=== PATIENT | female | born 1990 | race Asian ===

== ENCOUNTER 2020-02-28 07:00 | Outpatient (REF) | payer OTHER, SELFPAY ==
[2020-02-28 11:24] LABS: MANUAL DIFF FLAG NO
[2020-02-28 11:32] LABS: Eosinophils Percent Auto 0.5 % (0-4); Hematocrit 36.2 % (37-47); Hemoglobin 11.3 g/dl (12.0-16.0); Lymphocytes Absolute Auto 1.7 X10*3/uL (1.2-4.9); Lymphocytes Percent Auto 38.8 % (20-40); Mean Corpuscular HGB Conc 31.2 g/dl (31.0-35.0); Mean Corpuscular Hemoglobin 25.1 pg (27.0-33.0); Mean Corpuscular Volume 80.3 fL (80-98); Mean Platelet Volume 11.2 fL (9.4-12.3); Monocytes Absolute Auto 0.4 X10*3/uL (0.1-1.2); Monocytes Percent Auto 8.7 % (2-11); Neutrophils Absolute Auto 2.3 X10*3/uL (2.0-8.3); Platelet Count 297 X10*3/uL (160-400); Red Blood Count 4.51 X10*6/uL (4.20-5.50); Red Cell Distribution Width 13.2 % (11.0-16.0); White Blood Count 4.4 X10*3/uL (4.8-10.8)
[2020-02-28 12:13] LABS: Vitamin B12 586 pg/mL (200-900)
[2020-02-28 12:42] LABS: Ferritin 29 ng/mL (10-122)
[2020-03-03 14:21] LABS: Vitamin D 25-OH, D2 39 ng/mL; Vitamin D 25-OH, D3 <4 ng/mL; Vitamin D 25-OH, Total 39 ng/mL (30-100)
== END 2020-02-28 07:01 | disposition home or self-care (01) ==
LOC: HO.HMGCLDS 07:00
PROVIDERS: PCP Internal Medicine; Visit Provider Internal Medicine
DX: D64.9 Anemia, unspecified (principal); E53.8 Deficiency of other specified B group vitamins; E55.9 Vitamin D deficiency, unspecified
CPT/HCPCS: 36415; 82306; 82607; 82728; 85025

== ENCOUNTER 2020-12-21 11:43 | Outpatient (REF) | payer OTHER, SELFPAY ==
[2020-12-21 14:08] LABS: MANUAL DIFF FLAG NO
[2020-12-21 14:24] LABS: Basophils Percent Auto 0.2 % (0-2); Eosinophils Percent Auto 0.2 % (0-4); Hematocrit 34.6 % (37-47); Hemoglobin 10.9 g/dl (12.0-16.0); Imm Gran Abs Auto 0.01 X10*3/uL (0.00-0.03); Imm Gran Pct Auto 0.2 % (0.0-0.4); Lymphocytes Absolute Auto 2.5 X10*3/uL (1.2-4.9); Lymphocytes Percent Auto 39.5 % (20-40); Mean Corpuscular HGB Conc 31.5 g/dl (31.0-35.0); Mean Corpuscular Hemoglobin 24.6 pg (27.0-33.0); Mean Corpuscular Volume 78.1 fL (80-98); Mean Platelet Volume 11.4 fL (9.4-12.3); Monocytes Absolute Auto 0.4 X10*3/uL (0.1-1.2); Monocytes Percent Auto 6.4 % (2-11); Neutrophils Absolute Auto 3.4 X10*3/uL (2.0-8.3); Neutrophils Percent Auto 53.5 % (45-73); Platelet Count 315 X10*3/uL (160-400); Red Blood Count 4.43 X10*6/uL (4.20-5.50); Red Cell Distribution Width 13.1 % (11.0-16.0); White Blood Count 6.4 X10*3/uL (4.8-10.8)
[2020-12-21 14:35] LABS: Alanine Aminotransferase 11 U/L (0-31); Albumin Level 4.3 g/dL (3.5-5.0); Alkaline Phosphatase 86 U/L (39-117); Anion Gap 11 (12-20); Aspartate Amino Transferase 15 U/L (5-31); Bilirubin Total 0.3 mg/dL (0.0-1.0); Blood Urea Nitrogen 6 mg/dL (9-16); Calcium 9.8 mg/dL (8.4-10.2); Carbon Dioxide 25 mmol/L (22-29); Chloride 106 mmol/L (96-108); Estimated Glomerular Filt Rate > 60; Glucose Random 78 mg/dL (60-115); Potassium 4.4 mmol/L (3.3-5.1); Sodium 138 mmol/L (135-145); Total Protein 7.4 g/dL (6.5-8.0)
[2020-12-21 14:56] LABS: Ferritin 35 ng/mL (10-122)
[2020-12-21 15:42] LABS: Vitamin B12 184 pg/mL (200-900)
[2020-12-27 14:01] LABS: Vitamin D 25-OH, D2 7 ng/mL; Vitamin D 25-OH, D3 15 ng/mL; Vitamin D 25-OH, Total 22 ng/mL (30-100)
== END 2020-12-21 11:44 | disposition home or self-care (01) ==
LOC: HO.HMGCLDS 11:43
PROVIDERS: PCP Internal Medicine; Visit Provider Internal Medicine
DX: D64.9 Anemia, unspecified (principal); E53.8 Deficiency of other specified B group vitamins; E55.9 Vitamin D deficiency, unspecified
CPT/HCPCS: 36415; 80053; 82306; 82607; 82728; 85025

== ENCOUNTER → 2021-03-22 14:53 | Outpatient (BNV) | payer OTHER, SELFPAY | PROVIDERS: PCP Internal Medicine; Referring Provider Internal Medicine; Visit Provider Internal Medicine Medical Oncology | DX: D64.9 Anemia, unspecified (principal) | CPT/HCPCS: 99203; 99213; 99215 ==

== ENCOUNTER 2021-05-03 09:34 | Outpatient (REF) | payer OTHER, SELFPAY ==
[2021-05-04 13:01] LABS: CT PCR NOT DETECTED (Not Detect.); NG PCR NOT DETECTED (Not Detect.)
== END 2021-05-03 09:35 | disposition home or self-care (01) ==
LOC: HO.LAB 09:34
PROVIDERS: PCP Internal Medicine; Visit Provider Advanced Practice Midwife
DX: Z01.419 Encounter for gynecological examination (general) (routine) without abnormal findings (principal); D64.9 Anemia, unspecified; E53.8 Deficiency of other specified B group vitamins; E55.9 Vitamin D deficiency, unspecified; Z11.3 Encounter for screening for infections with a predominantly sexual mode of transmission; Z11.8 Encounter for screening for other infectious and parasitic diseases
CPT/HCPCS: 81025; 87491; 87591

== ENCOUNTER 2021-11-01 14:36 | Outpatient (REF) | payer OTHER, SELFPAY ==
[2021-11-01 15:26] LABS: HCG Quantitative 4003 mIU/mL
== END 2021-11-01 14:37 | disposition home or self-care (01) ==
LOC: HO.LAB 14:36
PROVIDERS: PCP Internal Medicine; Visit Provider Advanced Practice Midwife
DX: Z34.90 Encounter for supervision of normal pregnancy, unspecified, unspecified trimester (principal)
CPT/HCPCS: 36415; 84702; 99212

== ENCOUNTER 2021-11-22 10:22 | Outpatient (REF) | payer OTHER, SELFPAY ==
[2021-11-22 11:54] LABS: MANUAL DIFF FLAG NO
[2021-11-22 12:20] LABS: Alanine Aminotransferase 15 U/L (0-31); Albumin Level 4.5 g/dL (3.5-5.0); Alkaline Phosphatase 107 U/L (39-117); Anion Gap 13 (12-20); Aspartate Amino Transferase 17 U/L (5-31); Bilirubin Total 0.4 mg/dL (0.0-1.0); Blood Urea Nitrogen 8 mg/dL (9-16); Calcium 9.7 mg/dL (8.4-10.2); Carbon Dioxide 23 mmol/L (22-29); Chloride 107 mmol/L (96-108); Estimated Glomerular Filt Rate > 60; Glucose Random 89 mg/dL (60-115); Potassium 4.9 mmol/L (3.3-5.1); Sodium 138 mmol/L (135-145); Total Protein 7.9 g/dL (6.5-8.0)
[2021-11-22 12:21] LABS: Alanine Aminotransferase 15 U/L (0-31); Albumin Level 4.5 g/dL (3.5-5.0); Alkaline Phosphatase 103 U/L (39-117); Anion Gap 14 (12-20); Aspartate Amino Transferase 17 U/L (5-31); Bilirubin Total 0.4 mg/dL (0.0-1.0); Blood Urea Nitrogen 8 mg/dL (9-16); Calcium 9.9 mg/dL (8.4-10.2); Carbon Dioxide 24 mmol/L (22-29); Chloride 106 mmol/L (96-108); Estimated Glomerular Filt Rate > 60; Glucose Random 93 mg/dL (60-115); Lactate Dehydrogenase 189 U/L (122-220); Sodium 139 mmol/L (135-145); Total Protein 7.9 g/dL (6.5-8.0)
[2021-11-22 12:39] LABS: Erythrocyte Sedimentation Rate 22 MM/HR (0-20)
[2021-11-22 12:45] LABS: Ferritin 40 ng/mL (10-122)
[2021-11-22 12:48] LABS: Vitamin B12 276 pg/mL (200-900)
[2021-11-22 13:00] LABS: Basophils Percent Auto 0.2 % (0-2); Eosinophils Percent Auto 0.3 % (0-4); Hematocrit 34.8 % (37.0-47.0); Hemoglobin 10.9 g/dl (12.0-16.0); Imm Gran Abs Auto 0.03 X10*3/uL (0.00-0.03); Imm Gran Pct Auto 0.5 % (0.0-0.4); Lymphocytes Absolute Auto 1.8 X10*3/uL (1.2-4.9); Lymphocytes Percent Auto 27.8 % (20-40); Mean Corpuscular HGB Conc 31.3 g/dl (31.0-35.0); Mean Corpuscular Hemoglobin 24.3 pg (27.0-33.0); Mean Corpuscular Volume 77.7 fL (80.0-98.0); Mean Platelet Volume 9.5 fL (9.4-12.3); Monocytes Absolute Auto 0.5 X10*3/uL (0.1-1.2); Monocytes Percent Auto 7.6 % (2-11); Neutrophils Percent Auto 63.6 % (45-73); Red Blood Count 4.48 X10*6/uL (4.20-5.50); Red Cell Distribution Width 13.6 % (11.0-16.0); White Blood Count 6.3 X10*3/uL (4.8-10.8)
[2021-11-22 13:01] LABS: Platelet Count 1162 X10*3/uL (160-400)
[2021-11-26 23:21] LABS: TS Negative Control Passed; TS Panel A 4; TS Panel B 2; TS Positive Control Passed; TSpotTB Negative (Negative)
[2021-11-27 15:02] LABS: Vitamin D 25-OH, D2 <4 ng/mL; Vitamin D 25-OH, D3 22 ng/mL; Vitamin D 25-OH, Total 22 ng/mL (30-100)
== END 2021-11-22 10:23 | disposition home or self-care (01) ==
LOC: HO.HMGCLDS 10:22
PROVIDERS: Internal Medicine Medical Oncology; PCP Internal Medicine; Visit Provider Internal Medicine
DX: R20.2 Paresthesia of skin (principal); E53.8 Deficiency of other specified B group vitamins
CPT/HCPCS: 36415; 80053; 82306; 82550; 82607; 82728; 83615; 85025; 85652; 86481

== ENCOUNTER 2021-11-22 16:43 | Emergency (ER) | payer OTHER, SELFPAY ==
--- NOTE | ~2021-11-22 | US_ITS ---
EXAMINATION: US VENOUS ULTRASOUND WITH DOPPLER LOWER EXTREMITY, BILATERAL CLINICAL INFORMATION: Lower extremity discomfort, pain and swelling COMPARISON: None TECHNIQUE: Ultrasound of the deep veins is performed from the hip to the calf with compression sonography and color and pulse Doppler assessment. Spectral analysis with color-flow imaging is performed. FINDINGS: RIGHT: There is normal venous compression and respiratory variation and augmented flow. The visualized common femoral vein, superficial femoral vein, profunda femoral vein, popliteal vein, and the trifurcation region shows no evidence of deep venous thrombosis. There is no significant popliteal fossa cyst. LEFT: There is normal venous compression and respiratory variation and augmented flow. The visualized common femoral vein, superficial femoral vein, profunda femoral vein, popliteal vein, and the trifurcation region shows no evidence of deep venous thrombosis. There is no significant popliteal fossa cyst. If the patient's symptoms persist, followup ultrasound in 5 days 7 days might be of value to exclude proximal propagation from a non-visualized calf vein. US/US venous duplex LE BI IMPRESSION: No DVT demonstrated in the bilateral lower extremities.
--- NOTE | ~2021-11-22 | CT_ITS ---
EXAMINATION: CT ANGIOGRAM OF THE CHEST WITH AND WITHOUT CONTRAST (CT PULMONARY ANGIOGRAM FOR PE) CLINICAL INFORMATION: Reason for Exam elevated platelets, SOB COMPARISON: None TECHNIQUE: Prior to contrast administration, noncontrast localization images were obtained. Subsequently, multidetector volumetric imaging was performed from the thoracic inlet to below the diaphragms following the administration of 70 mL Omnipaque 350 intravenous contrast. No contrast reaction reported Sagittal, coronal, and MIP oblique sagittal reformatted images were obtained on the CT workstation, uploaded to PACS, and reviewed. This CT examination was performed using dose optimization techniques as appropriate, variously including the following: *Automated exposure control *Adjustment of mA and/or kV according to patient size (this includes techniques or standardized protocols for targeted exams where dose is matched to indication/reason for exam; i.e. extremities or head) *Use of iterative reconstruction technique Total exam dose-length product 215 mGy-cm FINDINGS: QUALITY OF STUDY/CONTRAST BOLUS: Satisfactory. PULMONARY ARTERIES: No central or segmental pulmonary emboli. THORACIC AORTA: No aneurysm or dissection. LUNG: No focal consolidation, nodules or masses. PLEURA: No pleural effusion or pneumothorax. MEDIASTINUM: Normal heart size. No pericardial effusion. No hilar or mediastinal lymphadenopathy. No evidence of septal bowing or right heart strain. CHEST WALL/AXILLA: No axillary or internal mammary lymphadenopathy. OSSEOUS STRUCTURES: No acute or suspicious osseous abnormality. UPPER ABDOMEN: Unremarkable. No reflux of contrast into the hepatic veins to suggest elevated right heart pressures. CT/CT angio chest PE protocol IMPRESSION: No pulmonary embolism. No aortic aneurysm or dissection. No acute pulmonary parenchymal abnormalities. VTE: negative
[2021-11-22 17:00] VITALS: BP 128/83; PULSE 81; RESP 18; TEMP 36.9; O2SAT 98; BMI 25.7
--- NOTE | 2021-11-22 18:59 | ED_ITS ---
HPI - Recheck/Abnormal Lab/Rx General Chief Complaint: Recheck/Abnormal Lab/Rx Stated Complaint: Abnormal labs Time Seen by Provider: 11/22/21 18:07 Source: patient Mode of arrival: ambulatory Limitations: other (vague historian ) History of Present Illness HPI narrative: 31 year old female history of trigeminal neuralgia, microcytic anemia, migrane, B12 deficiency presents to the ED today per PCP for abnormal platelet count. Patient reports tingling, burning, and itching to her feet bilaterally worsening over the last 3 days. She reports seeing her PCP for this earlier this week for labs. She received a phone call from her PCP today noting that she should come to the ED immediately for further work up. She was started on oral contraceptives on Thursday, following a miscarriage she had last week which requ [facility] she was previously on a BC patch. She denies fever, chest pain, shortness of breath, vaginal bleeding, weakness, leg swelling, nausea, vomiting or calf pain. Denies any recent travel or long car rides. No hx of PE or DVT Related Data Previous Rx's Medication Instructions Recorded ferrous sulfate 325 mg (65 mg 325 mg PO DAILY 90 days #90 tabs 08/03/20 iron) tablet cyanocobalamin (vitamin B-12) 1,000 mcg PO DAILY 90 days #90 tabs 03/20/21 1,000 mcg tablet folic acid 1 mg tablet 1 mg PO DAILY #90 tabs 03/22/21 carbamazepine 100 mg 100 mg PO DAILY 30 days #30 tabs 05/10/21 tablet,extended release,12 hr (Tegretol XR) cholecalciferol (vitamin D3) 25 25 mcg PO DAILY 90 days #90 tabs 09/10/21 mcg (1,000 unit) tablet cyanocobalamin (vitamin B-12) 1,000 mcg PO DAILY 30 days #30 tabs 11/22/21 1,000 mcg tablet prednisone 10 mg tablet 10 mg PO DAILY 3 days #3 tabs 11/22/21 Allergies Allergy/AdvReac Type Severity Reaction Status Date / Time No Known Allergies Allergy Verified 11/22/21 17:00 Review of Systems Review of Systems: Constitutional : No Weight loss, No Fever, No Chills, No Fatigue, No Malaise ENT/Mouth : No sore throat, No Rhinorrhea Eyes: No Eye Pain, No Swelling, No Redness Cardiovascular : No Chest Pain, No SOB, No Dyspnea on Exertion, No Orthopnea, No Edema, No Palpitations Respiratory : No Cough, No Sputum, No Wheezing Gastrointestinal : No Nausea, No Vomiting, No Diarrhea, No Constipation, No abdominal Pain, No Hematochezia, No Melena Genitourinary : No Dysuria, No Urinary Frequency, No Hematuria, Musculoskeletal : No joint pain, No Myalgias, No Joint Swelling Skin : No Skin Lesions, No rash Neuro : No Weakness, No Numbness, No Dizziness, No Headache All other systems reviewed and are negative Yes all other systems are reviewed and are negative [facility] Past Medical History Attestation statement: The following information was validated with the patient. Source: old records reviewed and nursing notes reviewed Medical History B12 deficiency Low hemoglobin Migraine without aura Unplanned , unknown if wanted Vitamin D deficiency Surgical History No pertinent past surgical history Family History Family History Father CVD (cardiovascular disease) Mother No problems noted. Maternal Grandfather Diabetes mellitus Maternal Grandmother Diabetes mellitus Paternal Grandfather Diabetes mellitus Paternal Grandmother Diabetes mellitus Social History Social History Household Members: Spouse and Children Housing: House Are you a primary personal caregiver to a significant other at home: No Do you presently have visiting nurse or other home services: No Alcohol intake: never Patient Tobacco Use Status: Never used Tobacco e-Cigarette/Vaping Use: Never Used Advance Directives: No Advance Directives Information Provided: No service: No Current occupational status: employed Cognitive needs: No Hearing needs: No Vision needs: No Physical Exam Vital Signs: Vital Signs: Last Vital Signs Temp 98.2 F 11/23/21 00:00 Pulse 65 11/23/21 00:00 Resp 20 11/22/21 20:54 BP 114/77 11/23/21 00:00 Pulse Ox 98 11/23/21 00:00 O2 Del Method 11/23/21 00:00 BMI result Body Mass Index 25.7 VSS Appearance: Alert.? Oriented X3.? No acute distress.? Head: Normocephalic, atraumatic, no step-offs or deformities Eyes: Pupils equal, round and reactive to light.? ENT: Pharynx normal.? Neck: Normal inspection.? Neck supple.? CVS: Normal heart rate and rhythm.? Pulses normal.? Respiratory: No respiratory distress.? Breath sounds normal.? Abdomen: Soft and nontender.? Skin: Skin warm and dry.? Normal skin color.? Normal skin turgor.? Extremities: No lower extremity edema.? No calf ttp. 5/5 strength to bilateral upper and lower extremities 2+ DP,AT,PT pulses equal and b/l. Neuro: Oriented X 3.? No motor deficit.? No sensory deficit. CN 2-12 intact Course Course Course Narrative: This case was discussed with who agrees with dx and tx plan. Reevaluation(s) Reevaluation #1: Spoke to Hem/Onc who agrees with my current workup and plan. She would also like LDH, vitamin B12, folate, ferritin, iron studies added to patient's workup. She recommends for patient to call their office 1st thing Thursday morning for evaluation. Patient now tells me she had a D&C last week therefor HCG slighly elevated could be normal given pt hx. [facility]. Denies vaginal bleeding and abd pain at this time. Time: 20:05 Reevaluation #2: Venous duplex with no DVT in the lower extremities bilaterally. CTA of the chest with no acute findings. At this time patient will be discharged home, advised her to follow-up with Hematology, Oncology on Thursday. At this time I feel comfortable with discharge home, gave patient strict return precautions and told her when to return. She verbalizes understanding. At this time I feel comfortable with discharge home. Time: 00:46 MDM - Recheck/Abnormal Lab/Rx MDM Narrative Medical decision making narrative: 1923 31 year old female presenting for re-evaluation of abnormal labs. Asymptomatic. Currently on oral contraceptives s/p miscarriage last week. No HX of DVT or PE. PE benign. Misael negative. PERC negative. Will rule out PE/DVT. Medical Records Attestation: I reviewed the patient's medical records. Lab Data Attestation: I reviewed the patient's lab results. Result diagrams: 11/22/21 19:23 11/22/21 19:23 Labs: Lab Results 11/22/21 11/22/21 11/22/21 Range/Units 19:23 19:23 19:23 WBC 10.2 (4.8-10.8) X10*3/uL RBC 4.39 (4.20-5.50) X10*6/uL Hgb 10.9 L (12.0-16.0) g/dl Hct 33.6 L (37.0-47.0) % MCV 76.5 L (80.0-98.0) fL MCH 24.8 L (27.0-33.0) pg MCHC 32.4 (31.0-35.0) g/dl RDW 13.6 (11.0-16.0) % Plt Count 981 H (160-400) X10*3/uL MPV 9.8 (9.4-12.3) fL Immature Gran % (Auto) 0.3 (0.0-0.4) % Neut % (Auto) 85.3 H (45-73) % Lymph % (Auto) 11.9 L (20-40) % Meriwether % (Auto) 2.4 (2-11) % Eos % (Auto) 0.0 (0-4) % Baso % (Auto) 0.1 (0-2) % Lymph # (Auto) 1.2 (1.2-4.9) X10*3/uL Meriwether # (Auto) 0.2 (0.1-1.2) X10*3/uL Eos # (Auto) 0.0 (0.0-0.4) X10*3/uL Baso # (Auto) 0.0 (0.0-0.2) X10*3/uL Abs Immat Gran (auto) 0.03 (0.00-0.03) X10*3/uL Absolute Neuts (auto) 8.7 H (2.0-8.3) x10*3/uL Absolute Nucleated RBC 0.000 (0.0-0.012) X10*3/uL Nucleated RBC % (auto) 0.0 (0.0-0.2) /100WBC D-Dimer High Sensitivty NG/ML Sodium 138 (135-145) mmol/L Potassium 5.0 (3.3-5.1) mmol/L Chloride 106 (96-108) mmol/L Carbon Dioxide 23 (22-29) mmol/L Anion Gap 14 (12-20) BUN 10 (9-16) mg/dL Creatinine 0.80 (0.5-1.4) mg/dL Estim Creat Clear Calc 92.0 Estimated GFR > 60 Random Glucose 106 (60-115) mg/dL Calcium 10.4 H D (8.4-10.2) mg/dL Magnesium 2.1 (1.6-2.6) mg/dL Iron 72 (30-160) mcg/dL TIBC 429 H (228-428) mcg/dL % Saturation 17 (15-50) % Unsat Iron Binding 357 ug/dL Ferritin 45 (10-122) ng/mL Total Bilirubin 0.4 (0.0-1.0) mg/dL AST 18 (5-31) U/L ALT 15 (0-31) U/L Alkaline Phosphatase 106 (39-117) U/L Lactate Dehydrogenase 200 (122-220) U/L Total Protein 8.3 H (6.5-8.0) g/dL Albumin 4.8 (3.5-5.0) g/dL Beta HCG, Quant 91 mIU/mL COVID-19 (LEANN) Negative (Negative) COVID-19 Clin Com See Note 11/22/21 Range/Units 19:23 WBC (4.8-10.8) X10*3/uL RBC (4.20-5.50) X10*6/uL Hgb (12.0-16.0) g/dl Hct (37.0-47.0) % MCV (80.0-98.0) fL MCH (27.0-33.0) pg MCHC (31.0-35.0) g/dl RDW (11.0-16.0) % Plt Count (160-400) X10*3/uL MPV (9.4-12.3) fL Immature Gran % (Auto) (0.0-0.4) % Neut % (Auto) (45-73) % Lymph % (Auto) (20-40) % Meriwether % (Auto) (2-11) % Eos % (Auto) (0-4) % Baso % (Auto) (0-2) % Lymph # (Auto) (1.2-4.9) X10*3/uL Meriwether # (Auto) (0.1-1.2) X10*3/uL Eos # (Auto) (0.0-0.4) X10*3/uL Baso # (Auto) (0.0-0.2) X10*3/uL Abs Immat Gran (auto) (0.00-0.03) X10*3/uL Absolute Neuts (auto) (2.0-8.3) x10*3/uL Absolute Nucleated RBC (0.0-0.012) X10*3/uL Nucleated RBC % (auto) (0.0-0.2) /100WBC D-Dimer High Sensitivty 245 NG/ML Sodium (135-145) mmol/L Potassium (3.3-5.1) mmol/L Chloride (96-108) mmol/L Carbon Dioxide (22-29) mmol/L Anion Gap (12-20) BUN (9-16) mg/dL Creatinine (0.5-1.4) mg/dL Estim Creat Clear Calc Estimated GFR Random Glucose (60-115) mg/dL Calcium (8.4-10.2) mg/dL Magnesium (1.6-2.6) mg/dL Iron (30-160) mcg/dL TIBC (228-428) mcg/dL % Saturation (15-50) % Unsat Iron Binding ug/dL Ferritin (10-122) ng/mL Total Bilirubin (0.0-1.0) mg/dL AST (5-31) U/L ALT (0-31) U/L Alkaline Phosphatase (39-117) U/L Lactate Dehydrogenase (122-220) U/L Total Protein (6.5-8.0) g/dL Albumin (3.5-5.0) g/dL Beta HCG, Quant mIU/mL COVID-19 (LEANN) (Negative) COVID-19 Clin Com Critical Care Time Critical Care Time Critical Care Time: Yes Total Critical Care Time: 35 Attestation: I attest to this time spent taking care of the patient, obtaining history, physical, reviewing labs, imaging, speaking to my attending, speaking to specialist. Discharge Plan Discharge Clinical Impression: Essential thrombocytosis Patient Disposition: Home, Self-Care Additional Instructions: Take your medications as prescribed. If you were prescribed antibiotics today, it is important that you take your medication to their entirety, do not skip any doses, do not finish them early. Follow-up with your primary care provider this week. Please follow up with OBGYN your HCG was 91 Return to the emergency department with new or worsening symptoms. Such as fevers, chills, chest pain, shortness of breath, nausea, vomiting, dizziness, headache, vision changes, lethargy In case of emergency call 911 CT/CT angio chest PE protocol IMPRESSION: No pulmonary embolism. No aortic aneurysm or dissection. No acute pulmonary parenchymal abnormalities. VTE: negative US/US venous duplex LE BI IMPRESSION: No DVT demonstrated in the bilateral lower extremities. Prescriptions: No Action ferrous sulfate 325 mg (65 mg iron) tablet 325 mg PO DAILY 90 Days Qty: 90 0RF cyanocobalamin (vitamin B-12) 1,000 mcg tablet 1,000 mcg PO DAILY 90 Days Qty: 90 0RF cholecalciferol (vitamin D3) 25 mcg (1,000 unit) tablet 25 mcg PO DAILY 90 Days Qty: 90 1RF folic acid 1 mg Tablet 1 mg PO DAILY Qty: 90 4RF carbamazepine [Tegretol XR] 100 mg tablet extended release 12 hr 100 mg PO DAILY 30 Days Qty: 30 0RF cyanocobalamin (vitamin B-12) 1,000 mcg tablet 1,000 mcg PO DAILY 30 Days Qty: 30 0RF prednisone 10 mg tablet 10 mg PO DAILY 3 Days Qty: 3 0RF Referrals: Mira John MD [Physician] - 3 days Cayla Rivera MD [Primary Care Provider] - 1 week Stand Alone Forms: Work/School Release
[2021-11-22 19:30] LABS: MANUAL DIFF FLAG NO
[2021-11-22 19:33] LABS: Basophils Percent Auto 0.1 % (0-2); Hematocrit 33.6 % (37.0-47.0); Hemoglobin 10.9 g/dl (12.0-16.0); Imm Gran Abs Auto 0.03 X10*3/uL (0.00-0.03); Imm Gran Pct Auto 0.3 % (0.0-0.4); Lymphocytes Absolute Auto 1.2 X10*3/uL (1.2-4.9); Lymphocytes Percent Auto 11.9 % (20-40); Mean Corpuscular HGB Conc 32.4 g/dl (31.0-35.0); Mean Corpuscular Hemoglobin 24.8 pg (27.0-33.0); Mean Corpuscular Volume 76.5 fL (80.0-98.0); Mean Platelet Volume 9.8 fL (9.4-12.3); Monocytes Absolute Auto 0.2 X10*3/uL (0.1-1.2); Monocytes Percent Auto 2.4 % (2-11); Neutrophils Absolute Auto 8.7 x10*3/uL (2.0-8.3); Neutrophils Percent Auto 85.3 % (45-73); Platelet Count 981 X10*3/uL (160-400); Red Blood Count 4.39 X10*6/uL (4.20-5.50); Red Cell Distribution Width 13.6 % (11.0-16.0); White Blood Count 10.2 X10*3/uL (4.8-10.8)
[2021-11-22 19:44] LABS: COVID-19 Test Negative (Negative)
[2021-11-22 19:47] LABS: Alanine Aminotransferase 15 U/L (0-31); Albumin Level 4.8 g/dL (3.5-5.0); Alkaline Phosphatase 106 U/L (39-117); Anion Gap 14 (12-20); Aspartate Amino Transferase 18 U/L (5-31); Bilirubin Total 0.4 mg/dL (0.0-1.0); Blood Urea Nitrogen 10 mg/dL (9-16); Calcium 10.4 mg/dL (8.4-10.2); Carbon Dioxide 23 mmol/L (22-29); Chloride 106 mmol/L (96-108); Estimated Glomerular Filt Rate > 60; Glucose Random 106 mg/dL (60-115); Magnesium 2.1 mg/dL (1.6-2.6); Sodium 138 mmol/L (135-145); Total Protein 8.3 g/dL (6.5-8.0)
[2021-11-22 20:24] LABS: D Dimer High Sensitivity 245 NG/ML
[2021-11-22 20:37] LABS: Iron 72 mcg/dL (30-160); Lactate Dehydrogenase 200 U/L (122-220); Percent Iron Saturation 17 % (15-50); Total Iron Binding Capacity 429 mcg/dL (228-428); Unsaturated Iron Binding 357 ug/dL
[2021-11-22 20:54] VITALS: BP 112/74; PULSE 70; RESP 20; TEMP 37.1; O2SAT 98
[2021-11-22 20:58] LABS: Ferritin 45 ng/mL (10-122); HCG Quantitative 91 mIU/mL
[2021-11-22] MEDS: iohexoL 350 MG/ML 100 ML INFUS..BTL IV (22:44)
[2021-11-23] VITALS: BP 114/77; PULSE 65; TEMP 36.8; O2SAT 98
[2021-11-25 07:30] LABS: Folate 13.1 ng/mL (> or = 4.0); Vitamin B12 273 pg/mL (200-900)
== END 2021-11-23 01:22 | disposition home or self-care (01) ==
PROVIDERS: Physician Assistant; Emergency Provider Student in an Organized Health Care Education/Training Program; PCP Internal Medicine
DX: D47.3 Essential (hemorrhagic) thrombocythemia (principal); R06.02 Shortness of breath; Z20.822 Contact with and (suspected) exposure to COVID-19; Z79.899 Other long term (current) drug therapy
CPT/HCPCS: 36415; 71275; 80053; 82607; 82728; 82746; 83540; 83615; 83735; 84702; 85025; 85379; 87635; 93970; 99283; 99284; Q9967

== ENCOUNTER 2022-02-07 15:51 | Outpatient (REF) | payer OTHER, SELFPAY ==
[2022-02-07 19:12] LABS: CT PCR NOT DETECTED (Not Detect.); NG PCR NOT DETECTED (Not Detect.)
[2022-02-08 11:53] LABS: BV Int Neg Control Negative (Negative); BV Int Pos Control Positive (Positive)
== END 2022-02-07 15:52 | disposition home or self-care (01) ==
LOC: HO.LNP 15:51
PROVIDERS: Visit Provider Advanced Practice Midwife
DX: Z11.3 Encounter for screening for infections with a predominantly sexual mode of transmission (principal); D50.9 Iron deficiency anemia, unspecified; R79.89 Other specified abnormal findings of blood chemistry; Z98.890 Other specified postprocedural states
CPT/HCPCS: 87480; 87491; 87510; 87591; 87660; 99212

== ENCOUNTER 2022-09-06 10:34 | Outpatient (REF) | payer OTHER, SELFPAY ==
--- NOTE | ~2022-09-06 | XR_ITS ---
EXAMINATION: XR LUMBOSACRAL SPINE CLINICAL INFORMATION: Radiculopathy COMPARISON: None available. TECHNIQUE: Three views of the lumbosacral spine. FINDINGS: The vertebral bodies and posterior elements are normal. The disc spaces are preserved and the vertebral alignment is normal. The paraspinal soft tissues are normal. XR/XR lumbar spine 2-3V IMPRESSION: Unremarkable examination.
[2022-09-06 13:30] LABS: MANUAL DIFF FLAG NO
[2022-09-06 13:32] LABS: Basophils Percent Auto 0.2 % (0-2); Eosinophils Percent Auto 0.3 % (0-4); Hematocrit 35.8 % (37.0-47.0); Hemoglobin 11.3 g/dl (12.0-16.0); Imm Gran Abs Auto 0.01 X10*3/uL (0.00-0.03); Imm Gran Pct Auto 0.2 % (0.0-0.4); Lymphocytes Absolute Auto 2.1 X10*3/uL (1.2-4.9); Lymphocytes Percent Auto 34.5 % (20-40); Mean Corpuscular HGB Conc 31.6 g/dl (31.0-35.0); Mean Corpuscular Hemoglobin 24.8 pg (27.0-33.0); Mean Corpuscular Volume 78.7 fL (80.0-98.0); Mean Platelet Volume 9.8 fL (9.4-12.3); Monocytes Absolute Auto 0.6 X10*3/uL (0.1-1.2); Monocytes Percent Auto 9.5 % (2-11); Neutrophils Absolute Auto 3.3 x10*3/uL (2.0-8.3); Neutrophils Percent Auto 55.3 % (45-73); Platelet Count 648 X10*3/uL (160-400); Red Blood Count 4.55 X10*6/uL (4.20-5.50); Red Cell Distribution Width 13.6 % (11.0-16.0)
[2022-09-06 13:57] LABS: Alanine Aminotransferase 29 U/L (0-31); Albumin Level 4.5 g/dL (3.5-5.0); Alkaline Phosphatase 111 U/L (39-117); Anion Gap 10 (12-20); Aspartate Amino Transferase 23 U/L (5-31); Bilirubin Total 0.5 mg/dL (0.0-1.0); Blood Urea Nitrogen 9 mg/dL (9-16); Calcium 9.8 mg/dL (8.4-10.2); Carbon Dioxide 28 mmol/L (22-29); Chloride 105 mmol/L (96-108); Cholesterol 195 mg/dL; Estimated Glomerular Filt Rate > 60; Glucose Fasting 89 mg/dL (60-99); HDL Cholesterol 42 mg/dL; LDL Cholesterol Calculated 134 mg/dl; Potassium 4.2 mmol/L (3.3-5.1); Sodium 139 mmol/L (135-145); Total Protein 7.6 g/dL (6.5-8.0); Triglycerides 96 mg/dL
[2022-09-06 14:14] LABS: TSH reflex Free T4 5.21 uIU/mL (0.32-4.0)
[2022-09-06 15:28] LABS: Free T4 (Free Thyroxine) 0.89 ng/dL (0.71-1.85)
[2022-09-12 11:13] LABS: Vitamin D 25-OH, D2 <4 ng/mL; Vitamin D 25-OH, D3 14 ng/mL; Vitamin D 25-OH, Total 14 ng/mL (30-100)
== END 2022-09-06 10:35 | disposition home or self-care (01) ==
LOC: HO.HMGCX 10:34
PROVIDERS: PCP Internal Medicine; Visit Provider Internal Medicine
DX: M54.16 Radiculopathy, lumbar region (principal); D64.9 Anemia, unspecified; D75.839 Thrombocytosis, unspecified; E53.8 Deficiency of other specified B group vitamins; E55.9 Vitamin D deficiency, unspecified; R06.02 Shortness of breath
CPT/HCPCS: 36415; 72100; 80053; 80061; 82306; 84439; 84443; 85025

== ENCOUNTER 2022-10-10 08:29 | Outpatient (REF) | payer OTHER, SELFPAY ==
[2022-10-10 12:44] LABS: Ferritin 33 ng/mL (10-122); TSH reflex Free T4 3.59 uIU/mL (0.32-4.0)
[2022-10-10 13:06] LABS: Vitamin B12 271 pg/mL (200-900)
[2022-10-13 17:39] LABS: Thyroglobulin Antibodies 2 IU/mL (< or = 1)
== END 2022-10-10 08:30 | disposition home or self-care (01) ==
LOC: HO.HMGCLDS 08:29
PROVIDERS: PCP Internal Medicine; Visit Provider Internal Medicine
DX: D64.9 Anemia, unspecified (principal); R79.89 Other specified abnormal findings of blood chemistry
CPT/HCPCS: 36415; 82607; 82728; 84443; 86800

== ENCOUNTER 2022-10-29 10:04 | Outpatient (REF) | payer OTHER, SELFPAY ==
--- NOTE | 2022-10-29 10:06 | EMG_ITS ---
Please see scanned EMG / Nerve Conduction Report. MTDD
== END 2022-10-29 10:05 | disposition home or self-care (01) ==
LOC: HO.NEURO 10:04
PROVIDERS: PCP Internal Medicine; Visit Provider Internal Medicine
DX: M54.16 Radiculopathy, lumbar region (principal)
CPT/HCPCS: 95885; 95911

== ENCOUNTER 2023-04-10 14:51 | Outpatient (REF) | payer OTHER, SELFPAY ==
[2023-04-11 05:42] LABS: CT PCR NOT DETECTED (Not Detect.); NG PCR NOT DETECTED (Not Detect.)
[2023-04-11 12:11] LABS: BV Int Neg Control Negative (Negative); BV Int Pos Control Positive (Positive)
== END 2023-04-10 14:52 | disposition home or self-care (01) ==
LOC: HO.LNP 14:51
PROVIDERS: PCP Internal Medicine; Visit Provider Advanced Practice Midwife
DX: Z11.3 Encounter for screening for infections with a predominantly sexual mode of transmission (principal); N89.8 Other specified noninflammatory disorders of vagina; R79.89 Other specified abnormal findings of blood chemistry; D50.9 Iron deficiency anemia, unspecified
CPT/HCPCS: 0353U; 87480; 87510; 87660; 99395

== ENCOUNTER 2023-04-10 14:51 | Outpatient (AMB) | payer OTHER, SELFPAY ==
--- NOTE | 2023-04-10 14:51 | MHC.OFFVIS ---
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 She feels like her periods are starting to come a little bit closer. She does not have memory of more than the last 2 on March 05 and March 23. She is using condoms for control because she can not use combination control pills because of her high counts she has been worked up and seen several times by Dr. Lancaster and she is also discussed the issues with Dr. Rivera who is her primary care provider. She is on a baby aspirin every day she is also noted to have some mild anemia. She notes that her vagina gets irritated and feels almost bruised when she uses condoms and she is wondering if there is anything she can use. This was a lengthy discussion visit with shared decision making and review of data available. [facility] Medical History Unplanned , unknown if wanted Migraine without aura Low hemoglobin Vitamin D deficiency B12 deficiency Surgical History No pertinent past surgical history Family History Father CVD (cardiovascular disease) Mother No problems noted. Maternal Grandfather Diabetes mellitus Maternal Grandmother Diabetes mellitus Paternal Grandfather Diabetes mellitus Paternal Grandmother Diabetes mellitus Other No family history of cancer Social History Household Members: Spouse and Children Housing: House Are you a primary customer care representative to a significant other at home: No Do you presently have visiting nurse or other home services: No Alcohol intake: never Patient Tobacco Use Status: Never used Tobacco e-Cigarette/Vaping Use: Never Used service: No Current occupational status: employed Cognitive needs: No Hearing needs: No Vision needs: No Female Reproductive History Menstrual Age of Menarche: 9 Duration of menses: <3 days Date of last menstrual period: 03/23/23 control method: none Total pregnancies: 3 Full term: 2 Number of Living Children: 2 Ab induced: 1 Date of last pap smear: 01/11/20 (negative) Physical Exam Vital Signs: Last Vital Signs BP 130/76 04/10/23 14:59 BMI result Body Mass Index 26.2 Const General: healthy appearing, comfortable, no acute distress, well developed and alert Nutritional Appearance: average body habitus Orientation/consciousness: patient oriented x3 Limitations: no limitations HEENT Head: Yes normocephalic Neck Neck: Yes normal visual inspection Chest Chest palpation & inspection: normal inspection of the chest Breast/axilla inspection: normal inspection of the breasts and normal inspection of the axillae Breast/axilla palpation: normal palpation of the breasts and normal palpation of the axillae Resp Effort & Inspection: normal respiratory effort GI Inspection: Yes normal to inspection, No Abdominal wall edema and No distended Palpation (GI): Soft to palpation and nontender General: Yes bladder normal to palpation External Female Exam: normal external appearance and normal appearance of the urethra Speculum Exam - Vagina: normal appearance of the vagina, normal palpation and normal vaginal discharge Speculum Exam - Cervix: normal appearance of the cervix, normal palpation and nontender Bimanual exam- vagina & uterus: normal bimanual exam, normal palpation, uterine size normal, bladder normal to palpation, consistency normal, normal palpation, uterine mobility normal, uterine shape normal, No Cervical tenderness present, non-tender and no cervical motion tenderness Bimanual Exam- Adnexa, other: normal adnexae, no masses, normal and No adnexal tenderness Neuro General: patient oriented x3 Assessment & Plan Assessment & Plan (1) control counseling: Code(s): Z30.09 - Encounter for other general counseling and advice on contraception (2) Elevated platelet count: Code(s): R79.89 - Other specified abnormal findings of blood chemistry (3) Microcytic hypochromic anemia: Code(s): D50.9 - Iron deficiency anemia, unspecified (4) Well woman exam with routine gynecological exam: Code(s): Z01.419 - Encounter for gynecological examination (general) (routine) without abnormal findings (5) Cervical cancer screening: Comment: No history of abnormals last Pap negative with negative HPV 01/07/2023 Code(s): Z12.4 - Encounter for screening for malignant neoplasm of cervix (6) Vaginal irritation: Comment: with Condom use Code(s): N89.8 - Other specified noninflammatory disorders of vagina Plan Several topics during this visit aside from usual. -----Discussed in this visit the following: healthy balanced diet, regular and consistent exercise, getting recommended health screens, doing the best she can for her particular health concerns, kegel exercises, pap smear screening and followup recommendations, mammography screening and SBE, normal changes in cycles in her life stage--- . Discussed variations in menstrual patterns and typical timing of arrival of premenopausal symptoms she wonders if she has been getting hot flashes. She sometimes can feel very hot. She said that she has had her thyroid checked and she also has had multiple visits with Dr. Lancaster reviewing all of her various blood parameters with her thrombocytosis. She says she has not seen either doctor in a little while but she has been having unusual symptoms and a nurse that came to her house today suggested she make another visit with her primary doctor to review the symptoms she was getting with her feet, is these with the symptoms she 1st had when the thrombocytosis was a discovered. She is wondering if there is any other method of control that she can use and we reviewed her history and various labs and visits with Dr. Simmons and previous workups and evaluations she had done to determine the cause of her various blood dyscrasias. The 3 control methods that we focused on were norethindrone control pills and I was investigating any relationship w thrombocytosis, and also the Mirena IU S and the ParaGard IUD she would be more interested in the ParaGard IUD however her blood work showed mild anemia. Reviewed also that sometimes cyclic changes can be somewhat masked by the presence of the Mirena IU S for some women but not all. She is going to discuss all of this with her primary care provider. She is not due for a Pap smear because her last 1 was in 2019. she is to think about things and in addition we also talked about various vaginal water-based lubricants and she is going to check them out in her [facility] If she decides on any of the methods she is to call and make an appointment and I discussed the ordering process for each. Orders: Orders Bacterial Vaginosis Panel Today Z11.3 - Encounter for screening for infections with a predominantly sexual mode of transmission CT NG by PCR Today Z11.3 - Encounter for screening for infections with a predominantly sexual mode of transmission Coding Level of Care Code Est Pt Prev Care [id number]) Diagnoses control counseling Z30.09 Elevated platelet count R79.89 Microcytic hypochromic anemia D50.9 Well woman exam with routine gynecological exam Z01.419 Cervical cancer screening Z12.4 Vaginal irritation N89.8 Time Spent (min) 50 Comment 100% [id number] with patient reviewing her concerns and available data and providing inf
[2023-04-10 14:59] VITALS: BP 130/76; BMI 26.2
== END 2023-04-10 16:10 | disposition home or self-care (01) ==
LOC: HO.HWSM 14:51
PROVIDERS: PCP Internal Medicine; Visit Provider Advanced Practice Midwife
DX: Z01.419 Encounter for gynecological examination (general) (routine) without abnormal findings (principal); R79.89 Other specified abnormal findings of blood chemistry; D50.9 Iron deficiency anemia, unspecified; N89.8 Other specified noninflammatory disorders of vagina
CPT/HCPCS: 99395

== ENCOUNTER 2023-06-19 12:34 | Outpatient (AMB) | payer MEDICAID, SELFPAY ==
[2023-06-19 12:37] VITALS: BP 110/72; PULSE 81; O2SAT 100; BMI 26.8
--- NOTE | 2023-06-19 12:37 | A.OFFPC_ITS ---
Vital Signs 06/19/23 12:37 Height 5 ft 3 in Weight 151 lb 2 oz BMI 26.8 BP 110/72 Blood Pressure Location Lt brachial Position Sitting Pulse 81 Pulse Source Pulse Oximeter Pulse Oximetry (%) 100 Oxygen Delivery Method Room Air Intake Visit Reasons: Foot Pain Allergies No Known Allergies Allergy (Verified 06/19/23 12:37) Medication List - Last Reconciled 06/19/23 by Cayla Rivera MD No Known Home Meds Tobacco use date assessed: 06/19/23 Dental Screening Dental Screen Date: 06/19/23 Did you have a dental visit in the last 12 months?: Yes Did you have a dental problem in the last 6 months where you did not have access to dental care?: No Was dental information given to patient?: Patient has dentist HPI Foot Pain HPI Details Patient is a 33-year-old female who was last seen September of last year After that patient had to go back to her country and she lost follow-up Patient have a history of thrombocytosis she has been evaluated by Hematology at [facility] She came in with a chief complaint of paresthesia in her feet left more than right I did ordered EMG nerve conduction study for her in the past which she could not follow through I have placed a new order along with Neurology referral Labs are needed to be done fasting For the management after the lab reports Follow-up 4 weeks [facility] Medical History Unplanned , unknown if wanted Migraine without aura Low hemoglobin Vitamin D deficiency B12 deficiency Surgical History No pertinent past surgical history Family History Father CVD (cardiovascular disease) Mother No problems noted. Maternal Grandfather Diabetes mellitus Maternal Grandmother Diabetes mellitus Paternal Grandfather Diabetes mellitus Paternal Grandmother Diabetes mellitus Other No family history of cancer Social History Household Members: Spouse and Children Housing: House Are you a primary day care supervisor to a significant other at home: No Do you presently have visiting nurse or other home services: No Alcohol intake: never Patient Tobacco Use Status: Never used Tobacco e-Cigarette/Vaping Use: Never Used service: No Current occupational status: employed Cognitive needs: No Hearing needs: No Vision needs: No Female Reproductive History Menstrual Age of Menarche: 9 Questionnaire Thrive Questionnaire Date Thrive assessed: 05/10/21 AUDIT C Alcohol Use Questionnaire (AUDIT-C) 1. How often do you have a drink containing alcohol?: Never 3. How often do you have six or more drinks on one occasion?: Never Total Score: 0 Score Reviewed/Action Taken: Yes FOREIGN-7 AMB Questionnaire FOREIGN-7 Date FOREIGN - 7 assessed: 05/10/21 Source: Developed by Drs. Timothy Lloyd, Laney Ross, Ran Buckley and colleagues, with an educational izaiah from [employer]. Review of Systems Const Denies chills and Denies fever(s) ENT Denies epistaxis and Denies nasal discharge Card Denies chest pain Resp Denies chest congestion, Denies cough and Denies hemoptysis GI Denies diarrhea and Denies nausea Skin/Breast Denies rash Neuro Reports no additional complaints Psych Reports no additional complaints Endo Reports no additional complaints Physical exam (Primary Care) Vital Signs: Last Vital Signs Pulse 81 06/19/23 12:37 BP 110/72 06/19/23 12:37 Pulse Ox 100 06/19/23 12:37 Oxygen Delivery Method Room Air 06/19/23 12:37 BMI result Body Mass Index 26.8 Tobacco/Smoking Status: Tobacco use Status Tobacco use date assessed 06/19/23 06/19/23 12:38 Patient Tobacco Use Status Never used Tobacco 06/19/23 12:38 e-Cigarette/Vaping Use Never Used 06/19/23 12:38 Thrive Assessment: Date of Thrive Assessment Date Thrive assessed 05/10/21 06/19/23 12:38 Const General: cooperative, comfortable and no acute distress Orientation/consciousness: patient oriented x3 HENMT Head: Yes normocephalic Eyes General: appearance normal, both eyes and all related structures Neck Neck: Yes supple Resp Effort & Inspection: normal respiratory effort, no cough and no stridor Cardio Rhythm: regular rhythm Heart sounds: S1 normal heart sound present and S2 normal heart sound present Skin General skin exam: turgor normal Neuro General: patient oriented x3, tone normal and moves all extremities Extrem Right lower extremity: no edema Left lower extremity: no edema Assessment and Plan Assessment & Plan (1) Paresthesia of both feet: Code(s): R20.2 - Paresthesia of skin (2) Thrombocytosis: Code(s): D75.839 - Thrombocytosis, unspecified (3) B12 deficiency: Code(s): E53.8 - Deficiency of other specified B group vitamins (4) Vitamin D deficiency: Code(s): E55.9 - Vitamin D deficiency, unspecified (5) Low hemoglobin: Code(s): D64.9 - Anemia, unspecified (6) Thoracic back pain: Code(s): M54.6 - Pain in thoracic spine Qualifiers: Chronicity: chronic Back pain laterality: midline Qualified Code(s): M54.6 - Pain in thoracic spine; G89.29 - Other chronic pain Plan Patient is a 33-year-old female who was last seen September of last year After that patient had to go back to her country and she lost follow-up Patient have a history of thrombocytosis she has been evaluated by Hematology at [facility] She came in with a chief complaint of paresthesia in her feet left more than right I did ordered EMG nerve conduction study for her in the past which she could not follow through I have placed a new order along with Neurology referral Labs are needed to be done fasting For the management after the lab reports Patient also fell 2 months ago on her back and now has pain middle of thoracic spine We will get in x-ray Follow-up 4 weeks Orders: Orders Lipid Panel Today D64.9 - Anemia, unspecified, D75.839 - Thrombocytosis, unspecified, E53.8 - Deficiency of other specified B group vitamins, E55.9 - Vitamin D deficiency, unspecified, M54.6 - Pain in thoracic spine, R20.2 - Paresthesia of skin TSH reflex Free T4 Today D64.9 - Anemia, unspecified, D75.839 - Thrombocytosis, unspecified, E53.8 - Deficiency of other specified B group vitamins, E55.9 - Vitamin D deficiency, unspecified, M54.6 - Pain in thoracic spine, R20.2 - Paresthesia of skin Vitamin D 25-OH (D2 and D3) Today D64.9 - Anemia, unspecified, D75.839 - Thrombocytosis, unspecified, E53.8 - Deficiency of other specified B group vitamins, E55.9 - Vitamin D deficiency, unspecified, M54.6 - Pain in thoracic spine, R20.2 - Paresthesia of skin Vitamin B12 Today D64.9 - Anemia, unspecified, D75.839 - Thrombocytosis, unspecified, E53.8 - Deficiency of other specified B group vitamins, E55.9 - Vitamin D deficiency, unspecified, M54.6 - Pain in thoracic spine, R20.2 - Paresthesia of skin Ferritin Today D64.9 - Anemia, unspecified, D75.839 - Thrombocytosis, unspecified, E53.8 - Deficiency of other specified B group vitamins, E55.9 - Vi tamin D deficiency, unspecified, M54.6 - Pain in thoracic spine, R20.2 - Paresthesia of skin NE nerve conduction velocity Today R20.2 - Paresthesia of skin NE electromyogram (EMG) Today R20.2 - Paresthesia of skin Complete Blood Count Auto Diff Today D64.9 - Anemia, unspecified, D75.839 - Thrombocytosis, unspecified, E53.8 - Deficiency of other specified B group vitamins, E55.9 - Vitamin D deficiency, unspecified, M54.6 - Pain in thoracic spine, R20.2 - Paresthesia of skin Comprehensive [place]. Panel Fast Today D64.9 - Anemia, unspecified, D75.839 - Thrombocytosis, unspecified, E53.8 - Deficiency of other specified B group vitamins, E55.9 - Vitamin D deficiency, unspecified, M54.6 - Pain in thoracic spine, R20.2 - Paresthesia of skin XR thoracic spine 2V Today M54.6 - Pain in thoracic spine Referrals Neurology Referral R20.2 - Paresthesia of skin Coding Level of Care Code Est Pt Level 4 (69665) Diagnoses Paresthesia of both feet R20.2 Thrombocytosis D75.839 B12 deficiency E53.8 Vitamin D deficiency E55.9 Low hemoglobin D64.9 Chronic midline thoracic back pain M54.6; G89.29 Chronicity: chronic Back pain laterality: midline
== END 2023-06-19 13:00 | disposition home or self-care (01) ==
PROVIDERS: PCP Internal Medicine; Visit Provider Internal Medicine
DX: R20.2 Paresthesia of skin (principal); D75.839 Thrombocytosis, unspecified; E53.8 Deficiency of other specified B group vitamins; E55.9 Vitamin D deficiency, unspecified; D64.9 Anemia, unspecified; M54.6 Pain in thoracic spine; G89.29 Other chronic pain
CPT/HCPCS: 99214

== ENCOUNTER 2023-06-20 08:41 | Outpatient (REF) | payer MEDICAID, SELFPAY ==
--- NOTE | ~2023-06-20 | XR_ITS ---
EXAMINATION: XR THORACOLUMBAR SPINE CLINICAL INFORMATION: 33-year-old female with thoracic spine pain COMPARISON: None available. TECHNIQUE: 2 views of thoracic spine FINDINGS: The vertebral alignment is normal. No intrinsic bony abnormality. The disc heights and neural foramina are well maintained. The endplates and posterior elements are normal. No fracture or subluxation. The surrounding prevertebral soft tissues are unremarkable. XR/XR thoracic spine 2V IMPRESSION: No compression fractures or subluxations are identified. The disc spaces are preserved. No endplate changes are seen. The prevertebral soft tissues are normal. The foramina are patent.
[2023-06-20 11:47] LABS: MANUAL DIFF FLAG NO
[2023-06-20 11:54] LABS: Basophils Percent Auto 0.2 % (0-2); Eosinophils Percent Auto 0.2 % (0-4); Hematocrit 35.1 % (37.0-47.0); Imm Gran Abs Auto 0.01 X10*3/uL (0.00-0.03); Imm Gran Pct Auto 0.2 % (0.0-0.4); Lymphocytes Absolute Auto 1.7 X10*3/uL (1.2-4.9); Lymphocytes Percent Auto 39.2 % (20-40); Mean Corpuscular HGB Conc 31.3 g/dl (31.0-35.0); Mean Corpuscular Hemoglobin 24.7 pg (27.0-33.0); Mean Corpuscular Volume 78.9 fL (80.0-98.0); Mean Platelet Volume 10.2 fL (9.4-12.3); Monocytes Absolute Auto 0.3 X10*3/uL (0.1-1.2); Monocytes Percent Auto 7.8 % (2-11); Neutrophils Absolute Auto 2.2 x10*3/uL (2.0-8.3); Neutrophils Percent Auto 52.4 % (45-73); Platelet Count 577 X10*3/uL (160-400); Red Blood Count 4.45 X10*6/uL (4.20-5.50); Red Cell Distribution Width 13.3 % (11.0-16.0); White Blood Count 4.2 X10*3/uL (4.8-10.8)
[2023-06-20 12:24] LABS: Alanine Aminotransferase 12 U/L (0-31); Albumin Level 4.2 g/dL (3.5-5.0); Alkaline Phosphatase 107 U/L (39-117); Anion Gap 11 (12-20); Aspartate Amino Transferase 18 U/L (5-31); Bilirubin Total 0.3 mg/dL (0.0-1.0); Blood Urea Nitrogen 14 mg/dL (9-16); Calcium 9.3 mg/dL (8.4-10.2); Carbon Dioxide 26 mmol/L (22-29); Chloride 108 mmol/L (96-108); Cholesterol 181 mg/dL (<200); Estimated Glomerular Filt Rate > 60; Glucose Fasting 90 mg/dL (60-99); HDL Cholesterol 38 mg/dL (>40); LDL Cholesterol Calculated 131 mg/dL (<100); Potassium 3.7 mmol/L (3.3-5.1); Sodium 141 mmol/L (135-145); Total Protein 7.6 g/dL (6.5-8.0); Triglycerides 62 mg/dL (<150)
[2023-06-20 12:42] LABS: Vitamin B12 264 pg/mL (200-900)
[2023-06-20 12:48] LABS: Ferritin 30 ng/mL (10-122); TSH reflex Free T4 2.87 uIU/mL (0.32-4.0)
[2023-06-24 12:18] LABS: Vitamin D 25-OH, D2 <4 ng/mL; Vitamin D 25-OH, D3 15 ng/mL; Vitamin D 25-OH, Total 15 ng/mL (30-100)
== END 2023-06-20 08:42 | disposition home or self-care (01) ==
LOC: HO.HMGCX 08:41
PROVIDERS: PCP Internal Medicine; Visit Provider Internal Medicine
DX: R20.2 Paresthesia of skin (principal); D75.839 Thrombocytosis, unspecified; E53.8 Deficiency of other specified B group vitamins; E55.9 Vitamin D deficiency, unspecified; D64.9 Anemia, unspecified; M54.6 Pain in thoracic spine; Z13.6 Encounter for screening for cardiovascular disorders
CPT/HCPCS: 36415; 72070; 80053; 80061; 82306; 82607; 82728; 84443; 85025

== ENCOUNTER 2023-07-10 09:35 | Outpatient (REF) | payer MEDICAID, SELFPAY ==
--- NOTE | 2023-07-10 09:42 | EMG_ITS ---
Chief complaint: Paresthesias both legs Reason for referral: Evaluate for neuropathy Referred by: Dr. Cayla Rivera Procedure done: Bilateral lower extremity NCS/EMG Precautions and/or limitations: None The limb temperature was monitored continuously and remained between 32-36 degrees C during the performance of the NCS. Nerve Conduction Studies Anti Sensory Summary Table ?Stim Site NR Onset (ms) Norm Onset (ms) Peak (ms) Norm Peak (ms) O-P Amp (?V) Norm O-P Amp Site1 Site2 Delta-0 (ms) Dist (cm) Juan Jose (m/s) Norm Juan Jose (m/s) Left Sural Anti Sensory (Lat Mall) Calf ? 2.8 3.6 <4.0 24.7 >5.0 Calf Lat Mall 2.8 14.0 50 Right Sural Anti Sensory (Lat Mall) Calf ? 3.0 3.8 <4.0 10.7 >5.0 Calf Lat Mall 3.0 14.0 47 Motor Summary Table ?Stim Site NR Onset (ms) Norm Onset (ms) O-P Amp (mV) Norm O-P Amp iAmp (mV) Amp (1st) (%) Site1 Site2 Delta-0 (ms) Dist (cm) Juan Jose (m/s) Norm Juan Jose (m/s) Left Peroneal Motor (Ext Dig Brev) Ankle ? 4.0 <4.0 8.7 >2.5 10.5 100.0 Ankle Ext Dig Brev 4.0 0.0 B Fib ? 9.6 7.4 9.1 85.1 B Fib Ankle 5.6 30.0 54 >40 Poplt ? 10.4 7.3 9.0 83.9 Poplt B Fib 0.8 6.0 75 >40 Right Peroneal Motor (Ext Dig Brev) Ankle ? 4.0 <4.0 8.1 >2.5 10.2 100.0 Ankle Ext Dig Brev 4.0 0.0 B Fib ? 9.2 7.7 9.7 95.1 B Fib Ankle 5.2 30.0 58 >40 Poplt ? 10.1 7.6 9.6 93.8 Poplt B Fib 0.9 5.0 56 >40 Left Tibial Motor (Abd Pereira Brev) Ankle ? 2.9 <5 17.9 >2.5 26.1 100.0 Ankle Abd Pereira Brev 2.9 0.0 Knee ? 11.0 10.3 14.7 57.5 Knee Ankle 8.1 38.0 47 >40 Right Tibial Motor (Abd Pereira Brev) Ankle ? 3.5 <5 16.8 >2.5 26.4 100.0 Ankle Abd Pereira Brev 3.5 0.0 Knee ? 10.6 12.2 19.5 72.6 Knee Ankle 7.1 38.0 54 >40 EMG ?Side Muscle Nerve Root Ins Act Fibs Psw Amp Dur Poly Recrt Int Pat Comment Right AbdHallucis MedPlantar S1-2 Nml Nml Nml Nml Nml 0 Nml Complete Right AntTibialis Dp Br Peron L4-5 Nml Nml Nml Nml Nml 0 Nml Complete Right PostTibialis Tibial L5, S1 Nml Nml Nml Nml Nml 0 Nml Complete Right MedGastroc Tibial S1-2 Nml Nml Nml Nml Nml 0 Nml Complete Right VastusMed Femoral L2-4 Nml Nml Nml Nml Nml 0 Nml Complete Left AbdHallucis MedPlantar S1-2 Nml Nml Nml Nml Nml 0 Nml Complete Left AntTibialis Dp Br Peron L4-5 Nml Nml Nml Nml Nml 0 Nml Complete Left PostTibialis Tibial L5, S1 Nml Nml Nml Nml Nml 0 Nml Complete Left MedGastroc Tibial S1-2 Nml Nml Nml Nml Nml 0 Nml Complete Left VastusMed Femoral L2-4 Nml Nml Nml Nml Nml 0 Nml Complete FINDINGS: All motor and sensory nerves tested showed normal latencies, amplitudes and conduction velocities. Concentric needle EMG was performed in selected muscles of the bilateral lower extremity. Study did not reveal signs of electric abnormalities as shown in the table below. IMPRESSION: 1. This is a normal study. 2. There is no electrodiagnostic evidence for peroneal neuropathy, tibial neuropathy, lumbosacral plexopathy, lumbar radiculopathy, or peripheral neuropathy. Thank you for your kind referral. Suzanne Correa MD, SILVER Board Certified, [place] Board [employer] and Rehabilitation (ABPMR) Board Certified, [place] Board of Electrodiagnostic Medicine (ABEM) CODIN [id number] x 2 MTDD
== END 2023-07-10 09:36 | disposition home or self-care (01) ==
LOC: HO.NEURO 09:35
PROVIDERS: PCP Internal Medicine; Visit Provider Internal Medicine
DX: R20.2 Paresthesia of skin (principal)
CPT/HCPCS: 95886; 95909

== ENCOUNTER → 2023-07-10 09:42 | Outpatient (BNV) | payer OTHER, SELFPAY | PROVIDERS: PCP Internal Medicine; Visit Provider Physical Medicine & Rehabilitation | DX: R20.2 Paresthesia of skin (principal) | CPT/HCPCS: 95886; 95909 ==

== ENCOUNTER 2023-07-17 11:58 | Outpatient (AMB) | payer OTHER, SELFPAY ==
--- NOTE | 2023-07-17 12:03 | MHC.PC.OV ---
Vital Signs 07/17/23 12:04 Height 5 ft 3 in Weight 152 lb BMI 26.9 BP 110/72 Blood Pressure Location Rt brachial Position Sitting Pulse 97 Pulse Source Pulse Oximeter Pulse Oximetry (%) 95 Oxygen Delivery Method Room Air Intake Visit Reasons: 4 week follow up Allergies No Known Allergies Allergy (Verified 06/19/23 12:37) Medication List - Last Reconciled 07/17/23 by Cayla Rivera MD No Known Home Meds Tobacco use date assessed: 07/17/23 Dental Screening Dental Screen Date: 06/19/23 HPI 4 week follow up HPI Details Patient is a 33-year-old female came in today for her regular follow-up Patient have a history of anemia along with vitamin D deficiency and vitamin-B deficiency Currently she is taking no supplements she has stopped everything. Labs done recently showed globin of 11.0 with microcytic indices Vitamin-D is 15 and B12 is low normal at 264 She also have a thrombocytosis which has improved. Continued to have paresthesia of both feet Nerve conduction study done recently reviewed with the patient, which came back normal She has an appointment with the Neurology coming up in September We will repeat labs again before her next visit in September. Lab order placed and all supplements sent. 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 I would recommend to take it easy for few days [facility] Medical History Unplanned , unknown if wanted Migraine without aura Low hemoglobin Vitamin D deficiency B12 deficiency Surgical History No pertinent past surgical history Family History Father CVD (cardiovascular disease) Mother No problems noted. Maternal Grandfather Diabetes mellitus Maternal Grandmother Diabetes mellitus Paternal Grandfather Diabetes mellitus Paternal Grandmother Diabetes mellitus Other No family history of cancer Social History Household Members: Spouse and Children Housing: House Are you a primary manager care to a significant other at home: No Do you presently have visiting nurse or other home services: No Alcohol intake: never Patient Tobacco Use Status: Never used Tobacco e-Cigarette/Vaping Use: Never Used service: No Current occupational status: employed Cognitive needs: No Hearing needs: No Vision needs: No Female Reproductive History Menstrual Age of Menarche: 9 Questionnaire Thrive Questionnaire Date Thrive assessed: 05/10/21 FOREIGN-7 AMB Questionnaire FOREIGN-7 Date FOREIGN - 7 assessed: 05/10/21 Source: Developed by Drs. Timothy Lloyd, Laney Ross, Ran Buckley and colleagues, with an educational izaiah from [employer]. Review of Systems Const Denies chills and Denies fever(s) ENT Denies epistaxis and Denies nasal discharge Card Denies chest pain Resp Denies chest congestion, Denies cough and Denies hemoptysis GI Denies diarrhea and Denies nausea Skin/Breast Denies rash Neuro Reports no additional complaints Psych Reports no additional complaints Endo Reports no additional complaints Physical exam (Primary Care) Vital Signs: Last Vital Signs Pulse 97 07/17/23 12:04 BP 110/72 07/17/23 12:04 Pulse Ox 95 07/17/23 12:04 Oxygen Delivery Method Room Air 07/17/23 12:04 BMI result Body Mass Index 26.9 Tobacco/Smoking Status: Tobacco use Status Tobacco use date assessed 07/17/23 07/17/23 12:07 Patient Tobacco Use Status Never used Tobacco 07/17/23 12:07 e-Cigarette/Vaping Use Never Used 07/17/23 12:07 Thrive Assessment: Date of Thrive Assessment Date Thrive assessed 05/10/21 07/17/23 12:07 Const General: cooperative, comfortable and no acute distress Orientation/consciousness: patient oriented x3 HENSD Head: Yes normocephalic Eyes General: appearance normal, both eyes and all related structures Neck Neck: Yes supple Resp Effort & Inspection: normal respiratory effort, no cough and no stridor Cardio Rhythm: regular rhythm Heart sounds: S1 normal heart sound present and S2 normal heart sound present Skin General skin exam: turgor normal Neuro General: patient oriented x3, tone normal and moves all extremities Extrem Right lower extremity: no edema Left lower extremity: no edema Assessment and Plan Assessment & Plan (1) Thrombocytosis: Code(s): D75.839 - Thrombocytosis, unspecified (2) Microcytic hypochromic anemia: Code(s): D50.9 - Iron deficiency anemia, unspecified (3) Vitamin D deficiency: Code(s): E55.9 - Vitamin D deficiency, unspecified (4) B12 deficiency: Code(s): E53.8 - Deficiency of other specified B group vitamins (5) Strain of cervical portion of both trapezius muscles: Code(s): S16.1XXA - Strain of muscle, fascia and tendon at neck level, initial encounter Plan Patient is a 33-year-old female came in today for her regular follow-up Patient have a history of anemia along with vitamin D deficiency and vitamin-B deficiency Currently she is taking no supplements she has stopped everything. Labs done recently showed globin of 11.0 with microcytic indices Vitamin-D is 15 and B12 is low normal at 264 She also have a thrombocytosis which has improved. Continued to have paresthesia of both feet Nerve conduction study done recently reviewed with the patient, which came back normal She has an appointment with the Neurology coming up in September We will repeat labs again before her next visit in September. Lab order placed and all supplements sent. 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 I would recommend to take it easy for few days Orders: Orders Vitamin B12 Today D50.9 - Iron deficiency anemia, unspecified, D75.839 - Thrombocytosis, unspecified, E53.8 - Deficiency of other specified B group vitamins, E55.9 - Vitamin D deficiency, unspecified Ferritin Today D50.9 - Iron deficiency anemia, unspecified, D75.839 - Thrombocytosis, unspecified, E53.8 - Deficiency of other specified B group vitamins, E55.9 - Vitamin D deficiency, unspecified Complete Blood Count Auto Diff Today D50.9 - Iron deficiency anemia, unspecified, D75.839 - Thrombocytosis, unspecified, E53.8 - Deficiency of other specified B group vitamins, E55.9 - Vitamin D deficiency, unspecified Vitamin D 25-OH (D2 and D3) Today D50.9 - Iron deficiency anemia, unspecified, D75.839 - Thrombocytosis, unspecified, E53.8 - Deficiency of other specified B group vitamins, E55.9 - Vitamin D deficiency, unspecified Medications: New ferrous sulfate 324 mg PO BID 180 tabs 0RF 90 days Refilled cholecalciferol (vitamin D3) 25 mcg PO DAILY 90 caps 3RF 90 days cyanocobalamin (vitamin B-12) 1,000 mcg PO DAILY 90 tabs 3RF 90 days Coding Level of Care Code Est Pt Level 4 (16935) Diagnoses Thrombocytosis D75.839 Microcytic hypochromic anemia D50.9 Vitamin D deficiency E55.9 B12 deficiency E53.8 Strain of cervical portion of both trapezius muscles S16.1XXA
[2023-07-17 12:04] VITALS: BP 110/72; PULSE 97; O2SAT 95; BMI 26.9
== END 2023-07-17 14:04 | disposition home or self-care (01) ==
PROVIDERS: PCP Internal Medicine; Visit Provider Internal Medicine
DX: D75.839 Thrombocytosis, unspecified (principal); D50.9 Iron deficiency anemia, unspecified; E55.9 Vitamin D deficiency, unspecified; E53.8 Deficiency of other specified B group vitamins; S16.1XXA Strain of muscle, fascia and tendon at neck level, initial encounter
CPT/HCPCS: 99214

== ENCOUNTER 2023-09-04 08:57 | Outpatient (AMB) | payer OTHER, SELFPAY ==
[2023-09-04 09:04] VITALS: BP 122/76; PULSE 86; O2SAT 98; BMI 27.2
--- NOTE | 2023-09-04 09:04 | MHC.OFFWIV ---
Intake Vital Signs 09/04/23 09:04 Height 5 ft 3 in Weight 153 lb 6 oz BMI 27.2 BP 122/76 Blood Pressure Location Rt brachial Position Sitting Pulse 86 Pulse Source Pulse Oximeter Pulse Oximetry (%) 98 Oxygen Delivery Method Room Air Intake Visit Reasons: EP Stomach issues Patient Tobacco Use Status: Never used Tobacco Allergies No Known Allergies Allergy (Verified 09/04/23 09:11) Medication List - Last Reconciled 09/04/23 by Cayla Rivera MD cholecalciferol (vitamin D3) 25 mcg PO DAILY 90 days cyanocobalamin (vitamin B-12) 1,000 mcg PO DAILY 90 days ferrous sulfate 324 mg PO BID 90 days Do you need a note to return to daycare/school/sports/work: No HPI EP Stomach issues HPI Details 33-year-old female came in today to be evaluated for epigastric discomfort Which has been happening for the past 2 months Patient says that initially it was not that bad but now it is getting worse Patient says that symptoms are mostly at night when she is laying down, and in the morning she sometimes threw up She likes spicy food On examination she does not have any pain at this time Blood pressure is stable heart rate is controlled and regular There is no pain with activity I am treating her with the pantoprazole 40 mg at night And famotidine 40 mg in the morning Dietary instructions provided Patient is to return in 3 weeks for follow-up [facility] Medical History Unplanned , unknown if wanted Migraine without aura Low hemoglobin Vitamin D deficiency B12 deficiency Surgical History No pertinent past surgical history Family History Father CVD (cardiovascular disease) Mother No problems noted. Maternal Grandfather Diabetes mellitus Maternal Grandmother Diabetes mellitus Paternal Grandfather Diabetes mellitus Paternal Grandmother Diabetes mellitus Other No family history of cancer Social History Household Members: Spouse and Children Housing: House Are you a primary patient care director to a significant other at home: No Do you presently have visiting nurse or other home services: No Alcohol intake: never Patient Tobacco Use Status: Never used Tobacco e-Cigarette/Vaping Use: Never Used service: No Current occupational status: employed Cognitive needs: No Hearing needs: No Vision needs: No Female Reproductive History Menstrual Age of Menarche: 9 Review of Systems Const Denies chills and Denies fever(s) ENT Denies epistaxis and Denies nasal discharge Resp Denies chest congestion, Denies cough and Denies hemoptysis GI Denies diarrhea Skin/Breast Denies rash Neuro Reports no additional complaints Psych Reports no additional complaints Endo Reports no additional complaints Physical Exam Vital Signs: Last Vital Signs Pulse 86 09/04/23 09:04 BP 122/76 09/04/23 09:04 Pulse Ox 98 09/04/23 09:04 Oxygen Delivery Method Room Air 09/04/23 09:04 BMI result Body Mass Index 27.2 Const General: cooperative, comfortable and no acute distress Orientation/consciousness: patient oriented x3 HEENT Head: Yes normocephalic Eyes General: appearance normal, both eyes and all related structures Neck Other: Supple Neck: Yes supple Resp Effort & Inspection: normal respiratory effort, no cough and no stridor Cardio Rhythm: regular rhythm Heart sounds: S1 normal heart sound present and S2 normal heart sound present GI Other: No pain with palpation Skin General skin exam: turgor normal Neuro Other: Motor sensory intact General: patient oriented x3, tone normal and moves all extremities Extrem Other: No lower extremity swelling. Right lower extremity: no edema Left lower extremity: no edema Psych Other: Normal effect, speech clear Assessment & Plan Assessment & Plan (1) Acid reflux: Code(s): K21.9 - Gastro-esophageal reflux disease without esophagitis Qualifiers: Esophagitis presence: without esophagitis Qualified Code(s): K21.9 - Gastro-esophageal reflux disease without esophagitis Plan 33-year-old female came in today to be evaluated for epigastric discomfort Which has been happening for the past 2 months Patient says that initially it was not that bad but now it is getting worse Patient says that symptoms are mostly at night when she is laying down, and in the morning she sometimes threw up She likes spicy food On examination she does not have any pain at this time Blood pressure is stable heart rate is controlled and regular There is no pain with activity I am treating her with the pantoprazole 40 mg at night And famotidine 40 mg in the morning Dietary instructions provided Patient is to return in 3 weeks for follow-up Medications: New pantoprazole 40 mg PO BEDTIME 90 tabs 0RF 90 days famotidine 40 mg PO .q am 30 tabs 0RF 30 days Coding Level of Care Code Est Pt Level 3 (26183) Diagnoses Gastroesophageal reflux disease without esophagitis K21.9 Esophagitis presence: without esophagitis
== END 2023-09-04 09:37 | disposition home or self-care (01) ==
PROVIDERS: PCP Internal Medicine; Visit Provider Internal Medicine
DX: K21.9 Gastro-esophageal reflux disease without esophagitis (principal)
CPT/HCPCS: 99213

== ENCOUNTER 2023-09-18 08:53 | Outpatient (AMB) | payer OTHER, SELFPAY ==
[2023-09-18 09:00] VITALS: BP 112/78; PULSE 87; O2SAT 100; BMI 27.1
--- NOTE | 2023-09-18 09:00 | A.OFFPC_ITS ---
Vital Signs 09/18/23 09:00 Height 5 ft 3 in Weight 153 lb BMI 27.1 BP 112/78 Blood Pressure Location Rt brachial Position Sitting Pulse 87 Pulse Source Pulse Oximeter Pulse Oximetry (%) 100 Oxygen Delivery Method Room Air Intake Visit Reasons: 2 week follow up from walk in Allergies No Known Allergies Allergy (Verified 09/18/23 09:03) Medication List - Last Reconciled 09/18/23 by Cayla Rivera MD cholecalciferol (vitamin D3) 25 mcg PO DAILY 90 days cyanocobalamin (vitamin B-12) 1,000 mcg PO DAILY 90 days famotidine 40 mg PO .q am 30 days ferrous sulfate 324 mg PO BID 90 days pantoprazole 40 mg PO BEDTIME 90 days Tobacco use date assessed: 09/18/23 Dental Screening Dental Screen Date: 09/18/23 Did you have a dental visit in the last 12 months?: Yes Did you have a dental problem in the last 6 months where you did not have access to dental care?: No Was dental information given to patient?: Patient has dentist HPI 2 week follow up from walk in HPI Details Patient is a 33-year-old female came in today for follow-up appointment She was seen couple of weeks ago when she presented with feeling chest discomfort Her history was indicative of acid reflux I started her on famotidine 40 mg, as patient said omeprazole was not helping She came in today stating that she is feeling much better, She is avoiding foods which is making her symptoms worse Patient is to continue with famotidine 40 mg She is having some break through symptoms off and on for that I have sent omeprazole as well She has an appointment with me coming up in a month for physical exam We will re-evaluate. Labs were done in June, her platelets are elevated but stable She is slightly anemic as well , that is also stable [facility] Medical History Unplanned , unknown if wanted Migraine without aura Low hemoglobin Vitamin D deficiency B12 deficiency Surgical History No pertinent past surgical history Family History Father CVD (cardiovascular disease) Mother No problems noted. Maternal Grandfather Diabetes mellitus Maternal Grandmother Diabetes mellitus Paternal Grandfather Diabetes mellitus Paternal Grandmother Diabetes mellitus Other No family history of cancer Social History Household Members: Spouse and Children Housing: House Are you a primary neurocritical care physician to a significant other at home: No Do you presently have visiting nurse or other home services: No Alcohol intake: never Patient Tobacco Use Status: Never used Tobacco e-Cigarette/Vaping Use: Never Used service: No Current occupational status: employed Cognitive needs: No Hearing needs: No Vision needs: No Female Reproductive History Menstrual Age of Menarche: 9 Questionnaire Thrive Questionnaire Date Thrive assessed: 05/10/21 AUDIT C Alcohol Use Questionnaire (AUDIT-C) 1. How often do you have a drink containing alcohol?: Never 3. How often do you have six or more drinks on one occasion?: Never Total Score: 0 Score Reviewed/Action Taken: Yes FOREIGN-7 AMB Questionnaire FOREIGN-7 Date FOREIGN - 7 assessed: 05/10/21 Source: Developed by Drs. Timothy Lloyd, Laney Ross, Ran Buckley and colleagues, with an educational izaiah from [employer]. Review of Systems Const Denies chills and Denies fever(s) ENT Denies epistaxis and Denies nasal discharge Card Denies chest pain Resp Denies chest congestion, Denies cough and Denies hemoptysis GI Denies diarrhea and Denies nausea Skin/Breast Denies rash Neuro Reports no additional complaints Psych Reports no additional complaints Endo Reports no additional complaints Physical exam (Primary Care) Vital Signs: Last Vital Signs Pulse 87 09/18/23 09:00 BP 112/78 09/18/23 09:00 Pulse Ox 100 09/18/23 09:00 Oxygen Delivery Method Room Air 09/18/23 09:00 BMI result Body Mass Index 27.1 Tobacco/Smoking Status: Tobacco use Status Tobacco use date assessed 09/18/23 09/18/23 09:04 Patient Tobacco Use Status Never used Tobacco 09/18/23 09:04 e-Cigarette/Vaping Use Never Used 09/18/23 09:04 Thrive Assessment: Date of Thrive Assessment Date Thrive assessed 05/10/21 09/18/23 09:04 Const General: cooperative, comfortable and no acute distress Orientation/consciousness: patient oriented x3 HENMT Head: Yes normocephalic Eyes General: appearance normal, both eyes and all related structures Neck Neck: Yes supple Resp Effort & Inspection: normal respiratory effort, no cough and no stridor Cardio Rhythm: regular rhythm Heart sounds: S1 normal heart sound present and S2 normal heart sound present Skin General skin exam: turgor normal Neuro General: patient oriented x3, tone normal and moves all extremities Extrem Right lower extremity: no edema Left lower extremity: no edema Assessment and Plan Assessment & Plan (1) Acid reflux: Code(s): K21.9 - Gastro-esophageal reflux disease without esophagitis Qualifiers: Esophagitis presence: without esophagitis Qualified Code(s): K21.9 - Gastro-esophageal reflux disease without esophagitis (2) Thrombocytosis: Code(s): D75.839 - Thrombocytosis, unspecified (3) Microcytic hypochromic anemia: Code(s): D50.9 - Iron deficiency anemia, unspecified (4) Thoracic back pain: Code(s): M54.6 - Pain in thoracic spine Qualifiers: Chronicity: chronic Back pain laterality: midline Qualified Code(s): M54.6 - Pain in thoracic spine; G89.29 - Other chronic pain Plan Patient is a 33-year-old female came in today for follow-up appointment She was seen couple of weeks ago when she presented with feeling chest discomfort Her history was indicative of acid reflux I started her on famotidine 40 mg, and pantoprazole 40 mg She came in today stating that she is feeling much better, She is avoiding foods which is making her symptoms worse Patient is to continue with famotidine 40 mg She has an appointment with me coming up in a month for physical exam We will re-evaluate. Labs were done in June, her platelets are elevated but stable She is slightly anemic as well , that is also stable Continued to have mid back pain paraspinal, x-ray was done in June when she fell That was within normal limit Most likely strain due to activities, back belt might help her. Coding Level of Care Code Est Pt Level 4 (25891) Diagnoses Gastroesophageal reflux disease without esophagitis K21.9 Esophagitis presence: without esophagitis Thrombocytosis D75.839 Microcytic hypochromic anemia D50.9 Chronic midline thoracic back pain M54.6; G89.29 Chronicity: chronic Back pain laterality: midline
== END 2023-09-18 10:08 | disposition home or self-care (01) ==
PROVIDERS: PCP Internal Medicine; Visit Provider Internal Medicine
DX: K21.9 Gastro-esophageal reflux disease without esophagitis (principal); D75.839 Thrombocytosis, unspecified; D50.9 Iron deficiency anemia, unspecified; M54.6 Pain in thoracic spine; G89.29 Other chronic pain
CPT/HCPCS: 99214

== ENCOUNTER 2023-10-09 11:53 | Outpatient (AMB) | payer OTHER, SELFPAY ==
--- NOTE | 2023-10-09 11:54 | A.OFFPC_ITS ---
Vital Signs 3 10/09/23 11:55 Height 5 ft 3 in Weight 150 lb 6 oz BMI 26.6 BP 148/82 H Blood Pressure Location Lt brachial Position Sitting Pulse 74 Pulse Source Pulse Oximeter Pulse Oximetry (%) 100 Oxygen Delivery Method Room Air Intake Visit Reasons: abd pain Allergies No Known Allergies Allergy (Verified 10/09/23 11:55) Medication List - Last Reconciled 10/09/23 by Cayla Rivera MD cholecalciferol (vitamin D3) 25 mcg PO DAILY 90 days cyanocobalamin (vitamin B-12) 1,000 mcg PO DAILY 90 days famotidine 40 mg PO .q am 90 days ferrous sulfate 324 mg PO BID 90 days pantoprazole 40 mg PO BEDTIME 90 days Tobacco use date assessed: 10/09/23 Dental Screening Dental Screen Date: 10/09/23 Did you have a dental visit in the last 12 months?: Yes Did you have a dental problem in the last 6 months where you did not have access to dental care?: No Was dental information given to patient?: Patient has dentist HPI abd pain 2 HPI0 Details Patient is a 33-year-old female with a history of acid reflux Was doing well with famotidine and omeprazole. Last night she had her dinner of rice encouraged, in the morning she woke up and she vomited and had heartburn Now she also complaining of epigastric discomfort On examination she has mild discomfort no guarding no rebound bowel sounds positive I have placed a referral for her to be evaluated by Gastroenterology She is to continue with famotidine and omeprazole and I have also added Carafate to be taken q.i.d. as needed. Patient was instructed to continue with bland diet and small meals. HPI Comments 2 History of Present Illness0 Details This is a longitudinal relationship between me and the patient. Ongoing care provided, patient was provided time to ask questions [facility] Medical History Unplanned , unknown if wanted Migraine without aura Low hemoglobin Vitamin D deficiency B12 deficiency Surgical History No pertinent past surgical history Family History Father CVD (cardiovascular disease) Mother No problems noted. Maternal Grandfather Diabetes mellitus Maternal Grandmother Diabetes mellitus Paternal Grandfather Diabetes mellitus Paternal Grandmother Diabetes mellitus Other No family history of cancer Social History Household Members: Spouse and Children Housing: House Are you a primary child care director to a significant other at home: No Do you presently have visiting nurse or other home services: No Alcohol intake: never Patient Tobacco Use Status: Never used Tobacco e-Cigarette/Vaping Use: Never Used service: No Current occupational status: employed Cognitive needs: No Hearing needs: No Vision needs: No Female Reproductive History Menstrual Age of Menarche: 9 Questionnaire Thrive Questionnaire Date Thrive assessed: 05/10/21 FOREIGN-7 AMB Questionnaire FOREIGN-7 Date FOREIGN - 7 assessed: 05/10/21 Source: Developed by Drs. Timothy Lloyd, Laney Ross, Ran Buckley and colleagues, with an educational izaiah from [employer]. Review of Systems Const Denies chills and Denies fever(s) ENT Denies epistaxis and Denies nasal discharge Card Denies chest pain Resp Denies chest congestion, Denies cough and Denies hemoptysis GI Denies diarrhea Skin/Breast Denies rash Neuro Reports no additional complaints Psych Reports no additional complaints Endo Reports no additional complaints Physical exam (Primary Care) Vital Signs: Last Vital Signs Pulse 74 10/09/23 11:55 BP 148/82 H 10/09/23 11:55 Pulse Ox 100 10/09/23 11:55 Oxygen Delivery Method Room Air 10/09/23 11:55 BMI result Body Mass Index 26.6 Tobacco/Smoking Status: Tobacco use Status Tobacco use date assessed 10/09/23 10/09/23 11:57 Patient Tobacco Use Status Never used Tobacco 10/09/23 11:57 e-Cigarette/Vaping Use Never Used 10/09/23 11:57 Thrive Assessment: Date of Thrive Assessment Date Thrive assessed 05/10/21 10/09/23 11:57 Const General: cooperative, comfortable and no acute distress Orientation/consciousness: patient oriented x3 HENMT Head: Yes normocephalic Eyes General: appearance normal, both eyes and all related structures Neck Neck: Yes supple Resp Effort & Inspection: normal respiratory effort, no cough and no stridor Cardio Rhythm: regular rhythm Heart sounds: S1 normal heart sound present and S2 normal heart sound present GI Abdomen image: 2 1. Discomfort with pressure no guarding no rebound bowel sounds positive. Skin General skin exam: turgor normal Neuro General: patient oriented x3, tone normal and moves all extremities Extrem Right lower extremity: no edema Left lower extremity: no edema Assessment and Plan Assessment & Plan (1) Epigastric pain: Code(s): R10.13 - Epigastric pain (2) Acid reflux: Code(s): K21.9 - Gastro-esophageal reflux disease without esophagitis Qualifiers: Esophagitis presence: without esophagitis Qualified Code(s): K21.9 - Gastro-esophageal reflux disease without esophagitis (3) Vomiting: Code(s): R11.10 - Vomiting, unspecified Qualifiers: Nausea presence: with nausea Vomiting type: unspecified Qualified Code(s): R11.2 - Nausea with vomiting, unspecified Plan Patient is a 33-year-old female with a history of acid reflux Was doing well with famotidine and omeprazole. Last night she had her dinner of rice encouraged, in the morning she woke up and she vomited and had heartburn Now she also complaining of epigastric discomfort On examination she has mild discomfort no guarding no rebound bowel sounds positive I have placed a referral for her to be evaluated by Gastroenterology She is to continue with famotidine and omeprazole and I have also added Carafate to be taken q.i.d. as needed. Patient was instructed to continue with bland diet and small meals. Orders: Referrals 2 Gastroenterology Referral K21.9 - Gastro-esophageal reflux disease without esophagitis, R10.13 - Epigastric pain, R11.10 - Vomiting, unspecified Medications: New 2 sucralfate (Carafate) swish in mouth and swallow; use after food/drink 5 mL PO QID 600 mL 0RF Stomach pain 30 days Coding Level of Care Code Est Pt Level 4 (16608) Complex EM visit Add On G2211 Diagnoses Epigastric pain R10.13 Gastroesophageal reflux disease without esophagitis K21.9 Esophagitis presence: without esophagitis Nausea and vomiting, unspecified vomiting type R11.2 Nausea presence: with nausea Vomiting type: unspecified
[2023-10-09 11:55] VITALS: BP 148/82; PULSE 74; O2SAT 100; BMI 26.6
== END 2023-10-09 16:29 | disposition home or self-care (01) ==
PROVIDERS: PCP Internal Medicine; Visit Provider Internal Medicine
DX: R10.13 Epigastric pain (principal); K21.9 Gastro-esophageal reflux disease without esophagitis; R11.2 Nausea with vomiting, unspecified
CPT/HCPCS: 99214; G2211

== ENCOUNTER 2023-11-13 10:57 | Outpatient (AMB) | payer OTHER, SELFPAY ==
--- NOTE | 2023-11-13 11:14 | AM.OFFWIN_ITS ---
Intake Vital Signs 11/13/23 11:15 Height 5 ft 3 in Weight 153 lb BMI 27.1 BP 110/74 Blood Pressure Location Rt brachial Position Sitting Pulse 79 Pulse Source Pulse Oximeter Temp 98.2 F Temp Source Oral Pulse Oximetry (%) 98 Oxygen Delivery Method Room Air Intake Visit Reasons: EP, left side/hip pain Intake Note: pt c/o LT side and hip pain. Started Thursday Patient Tobacco Use Status: Never used Tobacco Allergies No Known Allergies Allergy (Verified 11/13/23 11:15) Do you need a note to return to daycare/school/sports/work: Yes HPI EP, left side/hip pain HPI Details This is a 33-year-old female patient who presents today with left lower flank pain, radiating down left hip and wrapping medially into left groin. She states this has been mild/ongoing for about 1 year, however worsened over the last week. Denies any inciting event. She denies any urinary or vaginal symptoms. Denies any hip pain. Denies any fever or chills. Occasionally will take Tylenol/Motrin if needed. [facility] Medical History Unplanned , unknown if wanted Migraine without aura Low hemoglobin Vitamin D deficiency B12 deficiency Surgical History No pertinent past surgical history Family History Father CVD (cardiovascular disease) Mother No problems noted. Maternal Grandfather Diabetes mellitus Maternal Grandmother Diabetes mellitus Paternal Grandfather Diabetes mellitus Paternal Grandmother Diabetes mellitus Other No family history of cancer Social History Household Members: Spouse and Children Housing: House Are you a primary rn long term care to a significant other at home: No Do you presently have visiting nurse or other home services: No Alcohol intake: never Patient Tobacco Use Status: Never used Tobacco e-Cigarette/Vaping Use: Never Used service: No Current occupational status: employed Cognitive needs: No Hearing needs: No Vision needs: No Female Reproductive History Menstrual Age of Menarche: 9 Review of Systems Const All systems reviewed & are unremarkable except as noted in HPI and below Physical Exam Vital Signs: Last Vital Signs Temp 98.2 F 11/13/23 11:15 Pulse 79 11/13/23 11:15 BP 110/74 11/13/23 11:15 Pulse Ox 98 11/13/23 11:15 Oxygen Delivery Method Room Air 11/13/23 11:15 BMI result Body Mass Index 27.1 Const General: cooperative, comfortable and no acute distress Nutritional Appearance: average body habitus Resp Effort & Inspection: normal respiratory effort Auscultation: clear to auscultation bilaterally Cardio Rate: regular rate Rhythm: regular rhythm GI Inspection: Yes normal to inspection Palpation (GI): Soft to palpation and No hepatosplenomegaly present Percussion: Yes normal to percussion Auscultation: normal bowel sounds General: Yes bladder normal to palpation and Yes CVA tenderness on the left (lower) Bimanual exam- vagina & uterus: bladder normal to palpation Back/Spine/Pelvis Back: CVA tenderness Thoracic/Lumbar Spine: thoracic and lumbar spine normal to inspection, thoraco- lumbar ROM normal and straight leg raise negative bilaterally Pelvis: no pain with anterior-posterior compression and no pain with lateral compression Skin General skin exam: no rashes or lesions noted Neuro General: gait normal and Normal light touch and pain sensation Extrem General: Yes capillary refill normal and Yes no clubbing, cyanosis or edema Left lower extremity: hip/thigh Details: normal to inspection and normal ROM Psych Appearance: grossly normal Mental Status: mental status grossly normal Speech and movement: Normal speech and movement present Results AMB Urinalysis, Automated UA Leukoctes 0 Ayala/uL Last Edit by Sonu Grajeda CMA on 11/13/23 11:55 UA Nitrite Negative Last Edit by Sonu Grajeda CMA on 11/13/23 11:55 UA Urobilinogen 0.2 mg/dL Last Edit by Sonu Grajeda CMA on 11/13/23 11 :55 UA Protein 0 mg/dL Last Edit by Sonu Grajeda CMA on 11/13/23 11:55 UA pH 7.0 Last Edit by Sonu Grajeda CMA on 11/13/23 11:55 UA Blood 0 Carlos/uL Last Edit by Sonu Grajeda CMA on 11/13/23 11:55 UA Specific [place] 1.015 Last Edit by Sonu Grajeda CMA on 11/13/23 11:55 UA Ketone Negative Last Edit by Sonu Grajeda CMA on 11/13/23 11:55 UA Bilirubin 0 mg/dL Last Edit by Sonu Grajeda CMA on 11/13/23 11:55 UA Glucose 0 mg/dL Last Edit by Sonu Grajeda CMA on 11/13/23 11:55 Assessment & Plan Assessment & Plan (1) Left flank tenderness: Code(s): R10.819 - Abdominal tenderness, unspecified site Plan: Patient has a 1 year history of this vague left lower flank discomfort with radiation wrapping medially into left groin. Her urine dip was normal w/o blood. Her hip and lumbar spine exam is normal, however differential could possibly include a left L1/L2 radiculopathy given the radiation pattern of her symptoms. She denies any vaginal symptoms or history of PCOS however she may benefit from sooner [employer] visit than is currently scheduled (in March). She has an appt. with her PCP Dr. Rivera in 2-3 weeks and I advised she f/u at that time unless pain becomes worse or new symptoms develop in the interim, in which case she can certainly return to clinic or ED. I suggested she try some gentle stretching, heat application, and Tylenol/Motrin in the meantime. She agrees to plan. Orders: Orders AMB Urinalysis Automated Today Z13.9 - Encounter for screening, unspecified Coding Level of Care Code Est Pt Level 4 (15730) Diagnoses Left flank tenderness R10.819
[2023-11-13 11:15] VITALS: BP 110/74; PULSE 79; TEMP 36.8; O2SAT 98; BMI 27.1
== END 2023-11-13 12:22 | disposition home or self-care (01) ==
PROVIDERS: PCP Internal Medicine; Visit Provider Nurse Practitioner Family
DX: R10.819 Abdominal tenderness, unspecified site (principal); Z13.9 Encounter for screening, unspecified
CPT/HCPCS: 81003; 99214

== ENCOUNTER 2023-12-04 13:25 | Outpatient (AMB) | payer OTHER, SELFPAY ==
[2023-12-04 13:27] VITALS: BP 124/82; PULSE 75; O2SAT 96; BMI 27.2
--- NOTE | 2023-12-04 13:27 | A.OFFPC_ITS ---
Vital Signs 12/04/23 13:27 Height 5 ft 3 in Weight 153 lb 6 oz BMI 27.2 BP 124/82 Blood Pressure Location Lt brachial Position Sitting Pulse 75 Pulse Source Pulse Oximeter Pulse Oximetry (%) 96 Oxygen Delivery Method Room Air Intake Visit Reasons: Annual PE Allergies No Known Allergies Allergy (Verified 12/04/23 13:29) Medication List - Last Reconciled 12/04/23 by Cayla Rivera MD cholecalciferol (vitamin D3) 25 mcg PO DAILY 90 days cyanocobalamin (vitamin B-12) 1,000 mcg PO DAILY 90 days famotidine 40 mg PO .q am 90 days ferrous sulfate 324 mg PO BID 90 days pantoprazole 40 mg PO BEDTIME 90 days sucralfate (Carafate) 5 mL PO QID 30 days Tobacco use date assessed: 12/04/23 Dental Screening Dental Screen Date: 12/04/23 Did you have a dental visit in the last 12 months?: Yes Did you have a dental problem in the last 6 months where you did not have access to dental care?: No Was dental information given to patient?: Patient has dentist HPI Annual PE HPI Details Patient is a 33 year old female came in today for physical examination Patient is due for labs, she is iron deficient anemic Taking iron supplement every day Patient also have history of low vitamin-D and B12 Complaining of having acne especially close to her periods and is requesting a dermatology referral She has seen eye doctor recently and was told she has dry eyes and was given eyedrops GERD symptoms are controlled until she eats something spicy Currently patient is taking famotidine and PPI along with sucralfate She has appointment coming up with the gastroenterology soon She will return in six-month for follow-up on iron-deficiency anemia 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 Maternal Grandfather Diabetes mellitus Maternal Grandmother Diabetes mellitus Paternal Grandfather Diabetes mellitus Paternal Grandmother Diabetes mellitus Other No family history of cancer Social History Household Members: Spouse and Children Housing: House Are you a primary care clinician to a significant other at home: No Do you presently have visiting nurse or other home services: No Alcohol intake: never Patient Tobacco Use Status: Never used Tobacco e-Cigarette/Vaping Use: Never Used service: No Current occupational status: employed Cognitive needs: No Hearing needs: No Vision needs: No Female Reproductive History Menstrual Age of Menarche: 9 Questionnaire PHQ-9 Over the last 2 weeks, how often have you been bothered by any of the following problems? 1. Little interest or pleasure in doing things: not at all 2. Feeling down, depressed, or hopeless: not at all 3. Trouble falling or staying asleep, or sleeping too much: not at all 4. Feeling tired or having little energy: not at all 5. Poor appetite or overeating: not at all 6. Feeling bad about yourself - or that you are a failure or have let yourself or your family down: not at all 7. Trouble concentrating on things, such as reading the newspaper or watching television: not at all 8. Moving or speaking so slowly that other people could have noticed. Or the opposite - being so fidgety or restless that you have been moving around a lot more than usual: not at all 9. Thoughts that you would be better off or of hurting yourself in some way: not at all Total score: 0 Depression Screening Interpretation: Negative Depression Screening Done: Yes 69083 - PHQ-9 Billing: Yes Source: Developed by Drs. Timothy Lloyd, Laney Ross, Ran Buckley and colleagues, with an educational izaiah from [employer]. Thrive Questionnaire Date Thrive assessed: 12/04/23 I am a: Patient What is your living situation today?: I choose not to answer this question Within the past 12 months, did the food you bought not last and you didn't have the money to get more?: I choose not to answer this question Within the past 12 months, did you worry whether your food would run out before you got money to buy more?: I choose not to answer this question Do you have trouble paying for medicines?: No Do you have trouble getting transportation to medical appointments?: No Do you have trouble paying your heating and electricity bill?: No Do you have trouble taking care of your child, family member or friend?: No Do you have trouble with day-to-day activities such as bathing, preparing meals, shopping, managing finances, etc.?: No Are you currently unemployed and looking for a job?: I choose not to answer this question Are you interested in more education?: I choose not to answer this question Please select the resources that you would like help with: None Currently or been in a relationship where the following occur: I choose not to answer THRIVE Score: 0 AUDIT C Alcohol Use Questionnaire (AUDIT-C) 1. How often do you have a drink containing alcohol?: Never 3. How often do you have six or more drinks on one occasion?: Never Total Score: 0 Score Reviewed/Action Taken: Yes FOREIGN-7 AMB Questionnaire FOREIGN-7 Date FOREIGN - 7 assessed: 12/04/23 Feeling nervous, anxious, or on edge: 0 = Not at all Not being able to stop or control worryin = Not at all Worrying too much about different things: 0 = Not at all Trouble relaxin = Not at all Being so restless that it is hard to sit still: 0 = Not at all Becoming easily annoyed or irritable: 0 = Not at all Feeling afraid as if something awful might happen: 0 = Not at all Total FOREIGN-7 score (0-4 normal; 5-9 mild; 10-14 moderate; 15-21 severe): 0 Source: Developed by Drs. Timothy Lloyd, Laney Ross, Ran Buckley and colleagues, with an educational izaiah from [employer]. FOREIGN-7 Assessment Billing FOREIGN-7 Assessment Tool: FOREIGN-7 Assessment [id number] Review of Systems Const Denies chills, Denies fever(s) and Denies headache(s) Eyes Denies blurry vision ENT Denies headache(s), Denies nasal discharge, Denies nasal obstruction, Denies odynophagia and Denies sinus pain Card Denies chest pain at rest and Denies chest pain with activity Resp Denies cough and Denies hemoptysis GI Denies diarrhea, Denies odynophagia, Denies vomiting and Denies hematemesis Reports as per HPI Musc Denies abnormal gait Skin/Breast Reports as per HPI Neuro Denies Neuro-related abnormal movements, Denies Abnormal speech present, Denies abnormal gait, Denies headache(s) and Denies Sensory deficit (Neuro) Psych Denies mood swings and Denies paranoia Endo Reports as per HPI Shoaib/Lymph Reports as per HPI Aller/Immun Reports as per HPI Physical exam (Primary Care) Vital Signs: Last Vital Signs Pulse 75 12/04/23 13:27 BP 124/82 12/04/23 13:27 Pulse Ox 96 12/04/23 13:27 Oxygen Delivery Method Room Air 12/04/23 13:27 BMI result Body Mass Index 27.2 Tobacco/Smoking Status: Tobacco use Status Tobacco use date assessed 12/04/23 12/04/23 13:29 Patient Tobacco Use Status Never used Tobacco 12/04/23 13:29 e-Cigarette/Vaping Use Never Used 12/04/23 13:29 PHQ-9: PHQ-9 Score PHQ-9: Total score 0 12/04/23 13:58 Depression Screening Interpretation: Negative Thrive Assessment: Date of Thrive Assessment Date Thrive assessed 12/04/23 12/04/23 13:31 Currently or been in a relationship where the following occur: I choose not to answer Const General: cooperative, comfortable and no acute distress Orientation/consciousness: patient oriented x3 HENMT Head: Yes normocephalic and Yes atraumatic Eyes General: appearance normal, both eyes and all related structures Pupils: Equal, round and reactive pupils present EOM: EOMs intact bilaterally Neck Neck: Yes supple and No lymphadenopathy Thyroid: Thyroid normal Lymphatic: no lymphadenopathy noted Resp Effort & Inspection: normal respiratory effort and able to speak in complete sentences Auscultation: clear to auscultation bilaterally Cardio Heart sounds: S1 normal heart sound present and S2 normal heart sound present GI Palpation (GI): Soft to palpation and nontender Auscultation: normal bowel sounds General: Yes no CVA tenderness Back/Spine/Pelvis Back: no CVA tenderness Skin General skin exam: elasticity normal and turgor normal Neuro General: patient oriented x3 and gait normal Cranial nerves: Yes Equal, round and reactive pupils present Speech: No Abnormal speech present Sensory Exam: No Sensory deficit (Neuro) Coordination: tandem gait normal and Romberg test negative Extrem General: Yes normal exam except as noted and No edema Assessment and Plan Assessment & Plan (1) Encounter for general adult medical examination with abnormal findings: Code(s): Z00.01 - Encounter for general adult medical examination with abnormal findings (2) Strain of right trapezius muscle: Code(s): S46.811A - Strain of other muscles, fascia and tendons at shoulder and upper arm level, right arm, initial encounter Qualifiers: Encounter type: initial encounter Qualified Code(s): S46.811A - Strain of other muscles, fascia and tendons at shoulder and upper arm level, right arm, initial encounter (3) Acne: Code(s): L70.9 - Acne, unspecified Qualifiers: Acne type: other acne Qualified Code(s): L70.8 - Other acne (4) Mid back pain: Code(s): M54.9 - Dorsalgia, unspecified (5) Low hemoglobin: Code(s): D64.9 - Anemia, unspecified (6) Thrombocytosis: Code(s): D75.839 - Thrombocytosis, unspecified (7) Microcytic hypochromic anemia: Code(s): D50.9 - Iron deficiency anemia, unspecified (8) Migraine headache: Code(s): G43.909 - Migraine, unspecified, not intractable, without status migrainosus Qualifiers: Intractability: not intractable Migraine type: unspecified Status migrainosus presence: without status migrainosus Qualified Code(s): G43.909 - Migraine, unspecified, not intractable, without status migrainosus (9) Vitamin D deficiency: Code(s): E55.9 - Vitamin D deficiency, unspecified (10) B12 deficiency: Code(s): E53.8 - Deficiency of other specified B group vitamins Plan Patient is a 33 year old female came in today for physical examination Patient is due for labs, she is iron deficient anemic Taking iron supplement every day Patient also have history of low vitamin-D and B12 Complaining of having acne especially close to her periods and is requesting a dermatology referral She has seen eye doctor recently and was told she has dry eyes and was given eyedrops GERD symptoms are controlled until she eats something spicy Currently patient is taking famotidine and PPI along with sucralfate She has appointment coming up with the gastroenterology soon She will return in six-month for follow-up on iron-deficiency anemia 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 For that she need to take it easy so the muscle can heel Lab order placed to be done fasting Orders: Orders Vitamin B12 Today D50.9 - Iron deficiency anemia, unspecified, D64.9 - Anemia, unspecified, D75.839 - Thrombocytosis, unspecified, E53.8 - Deficiency of other specified B group vitamins, E55.9 - Vitamin D deficiency, unspecified, G43.909 - Migraine, unspecified, not intractable, without status migrainosus, L70.9 - Acne, unspecified, Z00.01 - Encounter for general adult medical examination with abnormal findings Complete Blood Count Auto Diff Today D50.9 - Iron deficiency anemia, unspecified, D64.9 - Anemia, unspecified, D75.839 - Thrombocytosis, unspecified, E53.8 - Deficiency of other specified B group vitamins, E55.9 - Vitamin D deficiency, unspecified, G43.909 - Migraine, unspecified, not intractable, without status migrainosus, L70.9 - Acne, unspecified, Z00.01 - Encounter for general adult medical examination with abnormal findings Comprehensive [place]. Panel Fast Today D50.9 - Iron deficiency anemia, unspecified, D64.9 - Anemia, unspecified, D75.839 - Thrombocytosis, unspecified, E53.8 - Deficiency of other specified B group vitamins, E55.9 - Vitamin D deficiency, unspecified, G43.909 - Migraine, unspecified, not intractable, without status migrainosus, L70.9 - Acne, unspecified, Z00.01 - Encounter for general adult medical examination with abnormal findings Lipid Panel Today D50.9 - Iron deficiency anemia, unspecified, D64.9 - Anemia, unspecified, D75.839 - Thrombocytosis, unspecified, E53.8 - Deficiency of other specified B group vitamins, E55.9 - Vitamin D deficiency, unspecified, G43.909 - Migraine, unspecified, not intractable, without status migrainosus, L70.9 - Acne, unspecified, Z00.01 - Encounter for general adult medical examination with abnormal findings Vitamin D 25-OH (D2 and D3) Today D50.9 - Iron deficiency anemia, unspecified, D64.9 - Anemia, unspecified, D75.839 - Thrombocytosis, unspecified, E53.8 - Deficiency of other specified B group vitamins, E55.9 - Vitamin D deficiency, unspecified, G43.909 - Migraine, unspecified, not intractable, without status migrainosus, L70.9 - Acne, unspecified, Z00.01 - Encounter for general adult medical examination with abnormal findings TSH reflex Free T4 Today D50.9 - Iron deficiency anemia, unspecified, D64.9 - Anemia, unspecified, D75.839 - Thrombocytosis, unspecified, E53.8 - Deficiency of other specified B group vitamins, E55.9 - Vitamin D deficiency, unspecified, G43.909 - Migraine, unspecified, not intractable, without status migrainosus, L70.9 - Acne, unspecified, Z00.01 - Encounter for general adult medical examination with abnormal findings Hemoglobin A1c Today D50.9 - Iron deficiency anemia, unspecified, D64.9 - Anemia, unspecified, D75.839 - Thrombocytosis, unspecified, E53.8 - Deficiency of other specified B group vitamins, E55.9 - Vitamin D deficiency, unspecified, G43.909 - Migraine, unspecified, not intractable, without status migrainosus, L70.9 - Acne, unspecified, Z00.01 - Encounter for general adult medical examination with abnormal findings Referrals Dermatology Referral L70.9 - Acne, unspecified Coding Level of Care Code Est Pt Level 4 (59482) Est Pt Prev Care 18-39y(25202) Diagnoses Encounter for general adult medical examination with abnormal findings Z00.01 Strain of right trapezius muscle, initial encounter S46.811A Encounter type: initial encounter Other acne L70.8 Acne type: other acne Mid back pain M54.9 Low hemoglobin D64.9 Thrombocytosis D75.839 Microcytic hypochromic anemia D50.9 Migraine without status migrainosus, not intractable, unspecified migraine type G43.909 Intractability: not intractable Migraine type: unspecified Status migrainosus presence: without status migrainosus Vitamin D deficiency E55.9 B12 deficiency E53.8 Additional Codes FOREIGN-7 Assessment Billing - FOREIGN-7 Assessment Tool: FOREIGN-7 Assessment [id number] ([id number])
== END 2023-12-04 13:57 | disposition home or self-care (01) ==
PROVIDERS: PCP Internal Medicine; Visit Provider Internal Medicine
DX: Z00.00 Encounter for general adult medical examination without abnormal findings (principal); S46.811A Strain of other muscles, fascia and tendons at shoulder and upper arm level, right arm, initial encounter; L70.8 Other acne; M54.9 Dorsalgia, unspecified; D64.9 Anemia, unspecified; D75.839 Thrombocytosis, unspecified; D50.9 Iron deficiency anemia, unspecified; G43.909 Migraine, unspecified, not intractable, without status migrainosus; E55.9 Vitamin D deficiency, unspecified; E53.8 Deficiency of other specified B group vitamins
CPT/HCPCS: 99395

== ENCOUNTER 2023-12-04 13:53 | Outpatient (REF) | payer OTHER, SELFPAY ==
[2023-12-04 16:00] LABS: MANUAL DIFF FLAG NO
[2023-12-04 16:12] LABS: Basophils Percent Auto 0.2 % (0-2); Eosinophils Percent Auto 0.2 % (0-4); Hematocrit 35.8 % (37.0-47.0); Hemoglobin 11.4 g/dl (12.0-16.0); Imm Gran Abs Auto 0.01 X10*3/uL (0.00-0.03); Imm Gran Pct Auto 0.2 % (0.0-0.4); Lymphocytes Percent Auto 36.1 % (20-40); Mean Corpuscular HGB Conc 31.8 g/dl (31.0-35.0); Mean Corpuscular Hemoglobin 25.4 pg (27.0-33.0); Mean Corpuscular Volume 79.7 fL (80.0-98.0); Mean Platelet Volume 10.1 fL (9.4-12.3); Monocytes Absolute Auto 0.4 X10*3/uL (0.1-1.2); Monocytes Percent Auto 6.3 % (2-11); Neutrophils Absolute Auto 3.2 x10*3/uL (2.0-8.3); Platelet Count 581 X10*3/uL (160-400); Red Blood Count 4.49 X10*6/uL (4.20-5.50); Red Cell Distribution Width 13.4 % (11.0-16.0); White Blood Count 5.6 X10*3/uL (4.8-10.8)
[2023-12-04 16:38] LABS: Alanine Aminotransferase 24 U/L (0-31); Albumin Level 4.4 g/dL (3.5-5.0); Alkaline Phosphatase 107 U/L (39-117); Anion Gap 12 (12-20); Aspartate Amino Transferase 21 U/L (5-31); Bilirubin Total 0.4 mg/dL (0.0-1.0); Blood Urea Nitrogen 11 mg/dL (9-16); Calcium 9.4 mg/dL (8.4-10.2); Carbon Dioxide 24 mmol/L (22-29); Chloride 107 mmol/L (96-108); Cholesterol 200 mg/dL (<200); Estimated Glomerular Filt Rate > 60; Glucose Fasting 88 mg/dL (60-99); HDL Cholesterol 45 mg/dL (>40); LDL Cholesterol Calculated 136 mg/dL (<100); Potassium 3.8 mmol/L (3.3-5.1); Sodium 139 mmol/L (135-145); Total Protein 7.9 g/dL (6.5-8.0); Triglycerides 96 mg/dL (<150)
[2023-12-04 16:40] LABS: Estimated Average Glucose 114 mg/dL; Hemoglobin A1c % 5.6 % (<6.0)
[2023-12-04 16:58] LABS: Ferritin 47 ng/mL (10-122); TSH reflex Free T4 2.05 uIU/mL (0.32-4.0)
[2023-12-04 17:03] LABS: Vitamin B12 312 pg/mL (200-900)
[2023-12-11 16:14] LABS: Vitamin D 25-OH, D2 <4 ng/mL; Vitamin D 25-OH, D3 19 ng/mL; Vitamin D 25-OH, Total 19 ng/mL (30-100)
== END 2023-12-04 13:54 | disposition home or self-care (01) ==
LOC: HO.HMGCLDS 13:53
PROVIDERS: PCP Internal Medicine; Visit Provider Internal Medicine
DX: Z00.01 Encounter for general adult medical examination with abnormal findings (principal); D75.839 Thrombocytosis, unspecified; D50.9 Iron deficiency anemia, unspecified; E55.9 Vitamin D deficiency, unspecified; E53.8 Deficiency of other specified B group vitamins; L70.9 Acne, unspecified; G43.909 Migraine, unspecified, not intractable, without status migrainosus; D64.9 Anemia, unspecified
CPT/HCPCS: 36415; 80053; 80061; 82306; 82607; 82728; 83036; 84443; 85025

== ENCOUNTER 2023-12-18 13:40 | Outpatient (AMB) | payer OTHER, SELFPAY ==
--- NOTE | 2023-12-18 13:52 | A.OFFVIS_ITS ---
Vital Signs 12/18/23 13:54 Height 5 ft 3 in Weight 154 lb 5.177 oz BMI 27.3 BP 115/72 Blood Pressure Location Lt brachial Position Sitting Pulse 71 Intake Visit Reasons: Epigastric Pain, GERD, Vomiting Intake Note: Luis presents in the office as a new patient patient for epigastric pains, GERD and Vomiting. CC: She states that she is having the pains in the stomach, vomiting and GERD. She normally states that it takes up to 4 days to have a BM. Denies any blood when she has a BM. Pharmacy Resident Required: No Allergies No Known Allergies Allergy (Verified 12/18/23 13:56) HPI Comments Details: 33 y.o F who is here for abd pain, vomiting. Started around 2 months ago. 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 Has at least 2 episodes of vomiting. Pain sometimes even wakes up from sleeping. Feels short of breath sometimes during these episodes. No blood in vomit. Appetite is good. No unintentional weight change. BMs are regular. No fam hx of esophageal/gastric or colon cancer. Has been taking protonix and pepcid and has been helping. Labs reviewed patient also with thrombocytosis, and normocytic anemia. Used to see Hematology, but lost to follow-up in 2021. Takes baby aspirin daily for thrombocytosis. [facility] Medical History Unplanned , unknown if wanted Migraine without aura Low hemoglobin Vitamin D deficiency B12 deficiency Surgical History No pertinent past surgical history Family History Father CVD (cardiovascular disease) Mother No problems noted. Maternal Grandfather Diabetes mellitus Maternal Grandmother Diabetes mellitus Paternal Grandfather Diabetes mellitus Paternal Grandmother Diabetes mellitus Other No family history of cancer Social History Household Members: Spouse and Children Housing: House Are you a primary manager career to a significant other at home: No Do you presently have visiting nurse or other home services: No Alcohol intake: never Patient Tobacco Use Status: Never used Tobacco e-Cigarette/Vaping Use: Never Used service: No Current occupational status: employed Cognitive needs: No Hearing needs: No Vision needs: No Female Reproductive History Menstrual Age of Menarche: 9 Review of Systems Const All systems reviewed & are unremarkable except as noted in HPI and below Physical Exam Vital Signs: Last Vital Signs Pulse 71 12/18/23 13:54 BP 115/72 12/18/23 13:54 BMI result Body Mass Index 27.3 No apparent distress Nonicteric Abdomen soft, nondistended Alert and oriented x3, normal gait Assessment & Plan Assessment & Plan (1) Anemia: Code(s): D64.9 - Anemia, unspecified Category: Medical (2) Chest pain: Code(s): R07.9 - Chest pain, unspecified Category: Medical (3) Vomiting: Code(s): R11.10 - Vomiting, unspecified Category: Medical Qualifiers: Vomiting type: unspecified Nausea presence: with nausea Qualified Code(s): R11.2 - Nausea with vomiting, unspecified Plan Reviewed with the patient that typically will not expect shortness of breath and pressure-like sensation with GERD symptoms. Will check an echocardiogram. In the meantime, we will get upper GI series or barium swallow. The barium study is abnormal, an echo permissive, we will proceed with upper endoscopy for further evaluation. In the meantime, she should continue Protonix. Was educated on taking it on empty stomach. In terms of the anemia, noted to be normocytic. Will check iron studies, B12, folate. Given normal RDW, also checking electrophoresis to rule out thalassemia/hemoglobinopathy. 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 Orders: Orders CA echo transthoracic complete Today R07.9 - Chest pain, unspecified FL upper GI w Ba Swallow Today R10.13 - Epigastric pain, R11.2 - Nausea with vomiting, unspecified Vitamin B12 and Folate Today D64.9 - Anemia, unspecified Ferritin Today D64.9 - Anemia, unspecified IRON PROFILE Today D64.9 - Anemia, unspecified Hemoglobin Electrophoresis Today D64.9 - Anemia, unspecified Coding Level of Care Code New Pt Level 4 (95328) Diagnoses Anemia D64.9 Chest pain R07.9 Nausea and vomiting, unspecified vomiting type R11.2 Vomiting type: unspecified Nausea presence: with nausea
[2023-12-18 13:54] VITALS: BP 115/72; PULSE 71; BMI 27.3
== END 2023-12-18 14:25 | disposition home or self-care (01) ==
PROVIDERS: PCP Internal Medicine; Visit Provider Internal Medicine
DX: D64.9 Anemia, unspecified (principal); R07.9 Chest pain, unspecified; R11.2 Nausea with vomiting, unspecified
CPT/HCPCS: 99204

== ENCOUNTER 2023-12-18 13:40 | Outpatient (REF) | payer OTHER, SELFPAY ==
[2023-12-18 14:49] LABS: MANUAL DIFF FLAG NO
[2023-12-18 15:12] LABS: Basophils Percent Auto 0.1 % (0-2); Eosinophils Percent Auto 0.1 % (0-4); Hematocrit 34.5 % (37.0-47.0); Hemoglobin 11.2 g/dl (12.0-16.0); Imm Gran Abs Auto 0.02 X10*3/uL (0.00-0.03); Imm Gran Pct Auto 0.3 % (0.0-0.4); Lymphocytes Absolute Auto 2.5 X10*3/uL (1.2-4.9); Lymphocytes Percent Auto 32.5 % (20-40); Mean Corpuscular HGB Conc 32.5 g/dl (31.0-35.0); Mean Corpuscular Hemoglobin 25.5 pg (27.0-33.0); Mean Corpuscular Volume 78.4 fL (80.0-98.0); Mean Platelet Volume 10.2 fL (9.4-12.3); Monocytes Absolute Auto 0.5 X10*3/uL (0.1-1.2); Monocytes Percent Auto 6.1 % (2-11); Neutrophils Absolute Auto 4.6 x10*3/uL (2.0-8.3); Neutrophils Percent Auto 60.9 % (45-73); Platelet Count 555 X10*3/uL (160-400); Red Cell Distribution Width 13.4 % (11.0-16.0); White Blood Count 7.6 X10*3/uL (4.8-10.8)
[2023-12-18 15:54] LABS: Iron 70 mcg/dL (30-160); Percent Iron Saturation 22 % (15-50); Total Iron Binding Capacity 324 mcg/dL (228-428); Unsaturated Iron Binding 254 ug/dL
[2023-12-18 16:03] LABS: Ferritin 42 ng/mL (10-122)
[2023-12-18 16:10] LABS: Folate 13.1 ng/mL (> or = 4.0); Vitamin B12 328 pg/mL (200-900)
[2023-12-22 13:38] LABS: Hematocrit 35.7 % (35.0-45.0); Hemoglobin 11.2 g/dL (11.7-15.5); MCH 24.8 pg (27.0-33.0); MCV 79.2 fL (80.0-100.0); RBC 4.51 Million/uL (3.80-5.10)
[2023-12-24 15:13] LABS: Vitamin D 25-OH, D2 4 ng/mL; Vitamin D 25-OH, D3 21 ng/mL; Vitamin D 25-OH, Total 25 ng/mL (30-100)
== END 2023-12-18 13:41 | disposition home or self-care (01) ==
LOC: HO.LAB 13:40
PROVIDERS: PCP Internal Medicine; Visit Provider Internal Medicine
DX: Z00.01 Encounter for general adult medical examination with abnormal findings (principal); L70.9 Acne, unspecified; D75.839 Thrombocytosis, unspecified; D50.9 Iron deficiency anemia, unspecified; G43.909 Migraine, unspecified, not intractable, without status migrainosus; E55.9 Vitamin D deficiency, unspecified; E53.8 Deficiency of other specified B group vitamins; D64.9 Anemia, unspecified
CPT/HCPCS: 36415; 82306; 82607; 82728; 82746; 83020; 83540; 85014; 85018; 85025; 85041; 99202

== ENCOUNTER → 2024-01-15 10:40 | Outpatient (REF) | payer OTHER, SELFPAY ==
--- NOTE | 2024-01-15 10:42 | CA_ITS ---
Transthoracic Echocardiogram Patient (Last, First, Middle): Luis Linn, Gender: Female Date of : 1990 Age: 33 Procedure Date: 01/15/2024 Procedure Type: Transthoracic Echocardiogram Location: OP Height: 160. cm Weight: 71.22 kg BSA: 1.74 m2 Heart Rate: 74 bpm BP: 120 / 70 mmHg Icu Registered Nurse: COLTEN Referring MD: Charlene Olvera MD Symptoms: R07.9 - Chest pain, unspecified Study Quality: Adequate ECG Rhythm: Sinus Conclusions: - The left ventricular systolic function is normal. The calculated ejection fraction is 65% by biplane method. - No obvious valvular pathology seen on this study. Findings Left Ventricle Normal left ventricular cavity size. There is normal left ventricular wall thickness. The left ventricular systolic function is normal. The calculated ejection fraction is 65% by biplane method. There is no evidence of regional wall motion abnormalities. Diastolic function is normal for age. Right Ventricle Normal right ventricular cavity size and systolic function. Atria Both atria are normal in size. Aortic Valve There is a normal trileaflet aortic valve. There is no aortic valve stenosis. There is no aortic valve regurgitation. Mitral Valve The mitral valve appears normal. There is trace mitral valve regurgitation. There is no mitral valve stenosis. Pulmonic Valve The pulmonic valve is likely normal. Tricuspid Valve There is trace tricuspid valve regurgitation. There is no evidence of pulmonary hypertension. Great Vessels The asc aorta is normal in size. Venous The inferior vena cava is normal in size and collapses greater than 50% with inspiration. Pericardium/Pleural There is no evidence of pericardial effusion. Prior Study Comparison No prior study available for comparison. Recommendations, Care & Conclusions No obvious valvular pathology seen on this study. Measurements 2D Linear Measurements IVSd: 0.72 0.6-0.9/0.6-1.0 cm LVIDd: 4.29 3.9-5.3/4.2-5.9 cm LVIDd Index: 2.47 2.4-3.2/2.2-3.1 cm/m2 LVIDs: 3.06 2.0-3.6 cm LVPWd: 0.78 0.7-1.1 cm LA Diam: 2.90 2.7-3.8/3.0-4.0 cm LAIDs Index: 1.67 1.5-2.3 cm/m2 LV Mass: 119.55 67-162/88-224 g LV Mass Index: 68.71 43-95/49-115 g/m2 LVOT Diam: 2.00 3.0+(-)1.3 cm 2D Systolic Function EF 4C: 61.30 >55% EF 2C: 67.70 >55% EF BiP: 65.30 >55% Mitral Valve MV Pk E: 1.05 MV PK A: 0.66 MV Decel Time: 256.00 E/A: 1.60 E'Lateral: 12.50 E'Medial: 10.20 E/E' Med: 10.30 E/E' Lat: 8.40 PHT: 75.00 MVA PHT: 2.93 Decel Kerr: 4.10 Aortic Valve AoV Pk Juan Jose: 1.06 AoV Mn Juan Jose: 0.77 AoV VTI: 0.21 AoV Pk Grad: 4.00 Aov Mn Grad: 3.00 BLAIRE Cont.VTI: 2.43 LVOT LVOT Pk Juan Jose: 0.78 LVOT Mn Juan Jose: 0.57 LVOT VTI: 0.16 LVOT Pk Grad: 2.00 LVOT Mn Grad: 1.00 LVOT Diam: 2.00 LVOT Area: 3.14 Diastolic Function MV Pk E: 1.05 MV Pk A: 0.66 E/A: 1.60 E'Medial: 10.20 E/E' Med: 10.30 E' Laterial: 12.50 E/E' Lat: 8.40 Right Ventricle TAPSE (mm): 25.40 TVS' Juan Jose: 15.20 Tricuspid Valve TR Pk Juan Jose: 1.46 TR Pk Grad: 9.00 RA Press: 3.00 RVSP: 12.00 Great Vessels Aorta Sinus of Valsalva: 3.30 2.0-3.5 cm Ao Asc: 2.60 2.1-3.4 cm Pulmonary Valve PV Pk Juan Jose: 0.71 Peak PV Grad: 2.00 Updated in Other Vendor System with Status of Final Montez Mclain MD electronically signed on 01/16/2024 12:42:33 PM with status of Final
== END ==
LOC: HO.CARD 10:40
PROVIDERS: PCP Internal Medicine; Visit Provider Internal Medicine
DX: R07.9 Chest pain, unspecified (principal)
CPT/HCPCS: 93306

== ENCOUNTER → 2024-01-15 10:42 | Outpatient (BNV) | payer OTHER, SELFPAY | PROVIDERS: PCP Internal Medicine; Visit Provider Internal Medicine | DX: R07.9 Chest pain, unspecified (principal) | CPT/HCPCS: 93306 ==

== ENCOUNTER 2024-03-02 08:17 | Outpatient (REF) | payer OTHER, SELFPAY ==
--- NOTE | ~2024-03-02 | FL_ITS ---
EXAMINATION: XR FLUOROSCOPY UPPER GI WITH AIR CLINICAL INFORMATION: Epigastric pain. Reflux. COMPARISON: None TECHNIQUE: Fluoroscopic air contrast upper GI examination was performed utilizing standard techniques with thin and thick barium and effervescent granules. Numerous spot images were obtained. FINDINGS: Dual and single contrast images of the esophagus demonstrate normal caliber, contour, and mucosal pattern. No evidence of stricture, mass, or ulcerations identified. Esophageal peristalsis was normal. No evidence of hiatus hernia identified. Moderate gastroesophageal reflux is seen up to the level the aortic arch. Dual contrast and single contrast images of the stomach demonstrated normal contour and mucosal pattern without evidence of mass, ulceration, or other abnormality. Contrast freely passed into the gastric antrum and duodenal bulb without delay. Single and air-contrast images of the duodenal bulb demonstrate no abnormality. The duodenal sweep has a normal appearance, course, and mucosal fold appearance. The imaged proximal jejunum has a normal fold pattern and caliber. FLUOROSCOPY TIME: 3 minutes 18 seconds Number of Spot Images: 5 Number of Cine: 11 DOSE AREA PRODUCT: 1584 uGy-m2 (microgray-meter squared) FL/FL upper GI w air w Ba Swallow IMPRESSION: 1. Moderate gastroesophageal reflux, otherwise unremarkable examination. This procedure was performed by Sukh Marie PA-C, and supervised by Dr. Pimentel Electronically signed by: Raul Pimentel MD 03/03/2024 04:51 PM [facility]
== END 2024-03-02 08:18 | disposition home or self-care (01) ==
LOC: HO.XRAY 08:17
PROVIDERS: PCP Internal Medicine; Visit Provider Internal Medicine
DX: R10.13 Epigastric pain (principal); R11.2 Nausea with vomiting, unspecified
CPT/HCPCS: 74246

== ENCOUNTER → 2024-03-02 08:19 | Outpatient (BNV) | payer OTHER, SELFPAY | PROVIDERS: PCP Internal Medicine; Visit Provider Physician Assistant Surgical | DX: R10.13 Epigastric pain (principal); K21.9 Gastro-esophageal reflux disease without esophagitis | CPT/HCPCS: 74246 ==

== ENCOUNTER 2024-05-06 14:38 | Outpatient (AMB) | payer OTHER, SELFPAY ==
[2024-05-06 14:44] VITALS: BP 120/74; PULSE 76; O2SAT 98; BMI 26.7
--- NOTE | 2024-05-06 14:44 | A.OFFPC_ITS ---
Vital Signs 05/06/24 14:44 Height 5 ft 3 in Weight 151 lb BMI 26.7 BP 120/74 Blood Pressure Location Rt brachial Position Sitting Pulse 76 Pulse Source Pulse Oximeter Pulse Oximetry (%) 98 Oxygen Delivery Method Room Air Intake Visit Reasons: Stomachache Allergies No Known Allergies Allergy (Verified 05/06/24 14:45) Medication List - Last Reconciled 05/06/24 by Cayla Rivera MD cholecalciferol (vitamin D3) 25 mcg PO DAILY 90 days cyanocobalamin (vitamin B-12) 1,000 mcg PO DAILY 90 days famotidine 40 mg PO .q am 90 days ferrous sulfate 324 mg PO BID 90 days pantoprazole 40 mg PO BEDTIME 90 days peg 3350-electrolytes 236-22.74-6.74 -5.86 gram (Golytely) 240 mL PO Q10M sucralfate (Carafate) 5 mL PO QID 30 days Tobacco use date assessed: 05/06/24 Dental Screening Dental Screen Date: 05/06/24 Did you have a dental visit in the last 12 months?: Yes Did you have a dental problem in the last 6 months where you did not have access to dental care?: No Was dental information given to patient?: Patient has dentist HPI Stomachache HPI Details - The patient is a 34-year-old female pr esenting with gastrointestinal and sleep disturbances. - GERD: Experiences reflux; already unde rgone diagnostic testing; currently taking Pantoprazole and Famotidine every day as prescribed; however not compliant with prescription directions - Anxiety: Reports difficulty sleeping, potentially related to anxiety and job stressors; lacks knowledge on whether nervousness contributes to sleep disturbances. Barium swallow done February of last year showed 1. Moderate gastroesophageal reflux, oth erwise unremarkable examination. Patient is established with Gastroenterology [facility] And is currently taking pantoprazole 40 mg daily Problem List - Gastroesophageal Reflux Disease (GERD) - Anxiety - difficulty sleeping Patient Instructions - Take Pantoprazole and Famotidine as di rected, one pill each every day. - Follow up with the supervisor industrial arts education regarding completed tests and further evaluation. - Start new medication for anxiety; begi n with half a tablet daily in the morning for one week, then increase to a full tablet. Lexapro 10 mg sent - Receive an annual flu vaccine; arrange for scheduling. - Monitor symptoms of sleep disturbances and anxiety; reach out if conditions worsen or new symptoms appear. Follow-up 3 weeks telemedicine on Lexapro and difficulty sleeping Review of Systems - Neurological: Reports difficulty with sleep. - Gastrointestinal: Reports gastrointest inal reflux. - Psychiatric: Reports anxiety, possibly related to job stress; uncertainty about specific causes of anxiety. 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 Maternal Grandfather Diabetes mellitus Maternal Grandmother Diabetes mellitus Paternal Grandfather Diabetes mellitus Paternal Grandmother Diabetes mellitus Other No family history of cancer Social History Household Members: Spouse and Children Housing: House Are you a primary home care assistant to a significant other at home: No Do you presently have visiting nurse or other home services: No Alcohol intake: never Patient Tobacco Use Status: Never used Tobacco e-Cigarette/Vaping Use: Never Used service: No Current occupational status: employed Cognitive needs: No Hearing needs: No Vision needs: No Female Reproductive History Menstrual Age of Menarche: 9 Questionnaire PHQ-9 Over the last 2 weeks, how often have you been bothered by any of the following problems? 1. Little interest or pleasure in doing things: not at all 2. Feeling down, depressed, or hopeless: not at all 3. Trouble falling or staying asleep, or sleeping too much: nearly every day 4. Feeling tired or having little energy: more than half the days 5. Poor appetite or overeating: not at all 6. Feeling bad about yourself - or that you are a failure or have let yourself or your family down: not at all 7. Trouble concentrating on things, such as reading the newspaper or watching television: not at all 8. Moving or speaking so slowly that other people could have noticed. Or the opposite - being so fidgety or restless that you have been moving around a lot more than usual: not at all 9. Thoughts that you would be better off or of hurting yourself in some way: not at all Total score: 5 Depression Screening Interpretation: Negative Depression Screening Done: Yes 31183 - PHQ-9 Billing: Yes Source: Developed by Drs. Timothy Lloyd, Laney Ross, Ran Buckley and colleagues, with an educational izaiah from [employer]. Thrive Questionnaire Date Thrive assessed: 05/06/24 I am a: Patient What is your living situation today?: I have a steady place to live Within the past 12 months, did the food you bought not last and you didn't have the money to get more?: I choose not to answer this question Within the past 12 months, did you worry whether your food would run out before you got money to buy more?: I choose not to answer this question Do you have trouble paying for medicines?: No Do you have trouble getting transportation to medical appointments?: No Do you have trouble paying your heating and electricity bill?: No Do you have trouble taking care of your child, family member or friend?: No Do you have trouble with day-to-day activities such as bathing, preparing meals, shopping, managing finances, etc.?: No Are you currently unemployed and looking for a job?: No Are you interested in more education?: No Please select the resources that you would like help with: None Currently or been in a relationship where the following occur: I choose not to answer THRIVE Score: 0 AUDIT C Alcohol Use Questionnaire (AUDIT-C) 1. How often do you have a drink containing alcohol?: Never 3. How often do you have six or more drinks on one occasion?: Never Total Score: 0 Score Reviewed/Action Taken: Yes FOREIGN-7 AMB Questionnaire FOREIGN-7 Date FOREIGN - 7 assessed: 05/06/24 Feeling nervous, anxious, or on edge: 0 = Not at all Not being able to stop or control worryin = Not at all Worrying too much about different things: 0 = Not at all Trouble relaxin = More than half the days Being so restless that it is hard to sit still: 0 = Not at all Becoming easily annoyed or irritable: 0 = Not at all Feeling afraid as if something awful might happen: 0 = Not at all Total FOREIGN-7 score (0-4 normal; 5-9 mild; 10-14 moderate; 15-21 severe): 2 Source: Developed by Drs. Timothy Lloyd, Laney Ross, Ran Buckley and colleagues, with an educational izaiah from [employer]. FOREIGN-7 Assessment Billing FOREIGN-7 Assessment Tool: FOREIGN-7 Assessment 60882 Physical exam (Primary Care) Vital Signs: Last Vital Signs Pulse 76 05/06/24 14:44 BP 120/74 05/06/24 14:44 Pulse Ox 98 05/06/24 14:44 Oxygen Delivery Method Room Air 05/06/24 14:44 BMI result Body Mass Index 26.7 Tobacco/Smoking Status: Tobacco use Status Tobacco use date assessed 05/06/24 05/06/24 14:48 Patient Tobacco Use Status Never used Tobacco 05/06/24 14:48 e-Cigarette/Vaping Use Never Used 05/06/24 14:48 PHQ-9: PHQ-9 Score PHQ-9: Total score 5 05/06/24 15:11 Depression Screening Interpretation: Negative Thrive Assessment: Date of Thrive Assessment Date Thrive assessed 05/06/24 05/06/24 14:48 Currently or been in a relationship where the following occur: I choose not to answer Coding Level of Care Code Est Pt Level 3 (60322) Diagnoses Gastroesophageal reflux disease without esophagitis K21.9 Esophagitis presence: without esophagitis Anxiety, generalized F41.1 Difficulty sleeping G47.9 Additional Codes FOREIGN-7 Assessment Billing - FOREIGN-7 Assessment Tool: FOREIGN-7 Assessment 08353 ([id number]) PHQ-9 - 13213 - PHQ-9 Billing: Yes ([id number]) Assessment & Plan Assessment & Plan (1) Acid reflux: Code(s): K21.9 - Gastro-esophageal reflux disease without esophagitis Category: Medical Qualifiers: Esophagitis presence: without esophagitis Qualified Code(s): K21.9 - Gastro-esophageal reflux disease without esophagitis (2) Anxiety, generalized: Code(s): F41.1 - Generalized anxiety disorder Category: Medical (3) Difficulty sleeping: Code(s): G47.9 - Sleep disorder, unspecified Category: Medical Plan - The patient is a 34-year-old female presenting with gastrointestinal and sleep disturbances. - GERD: Experiences reflux; already undergone diagnostic testing; currently taking Pantoprazole and Famotidine every day as prescribed; however not compliant with prescription directions - Anxiety: Reports difficulty sleeping, potentially related to anxiety and job stressors; lacks knowledge on whether nervousness contributes to sleep disturbances. Barium swallow done February of last year showed 1. Moderate gastroesophageal reflux, otherwise unremarkable examination. Patient is established with Gastroenterology [facility] And is currently taking pantoprazole 40 mg daily Problem List - Gastroesophageal Reflux Disease (GERD) - Anxiety - difficulty sleeping Patient Instructions - Take Pantoprazole and Famotidine as directed, one pill each every day. - Follow up with the supervisor industrial arts education regarding completed tests and further evaluation. - Start new medication for anxiety; begin with half a tablet daily in the morn ing for one week, then increase to a full tablet. Lexapro 10 mg sent - Receive an annual flu vaccine; arrange for scheduling. - Monitor symptoms of sleep disturbances and anxiety; reach out if conditions worsen or new symptoms appear. Follow-up 3 weeks telemedicine on Lexapro and difficulty sleeping Medications: New escitalopram oxalate (Lexapro) 10 mg PO DAILY 30 tabs 0RF
== END 2024-05-06 15:10 | disposition home or self-care (01) ==
PROVIDERS: PCP Internal Medicine; Visit Provider Internal Medicine
DX: K21.9 Gastro-esophageal reflux disease without esophagitis (principal); F41.1 Generalized anxiety disorder; G47.9 Sleep disorder, unspecified; Z23 Encounter for immunization

== ENCOUNTER → 2024-05-06 14:38 | Outpatient (BNVA) | payer OTHER, SELFPAY | PROVIDERS: PCP Internal Medicine; Visit Provider Internal Medicine | DX: Z23 Encounter for immunization (principal); K21.9 Gastro-esophageal reflux disease without esophagitis; F41.1 Generalized anxiety disorder; G47.9 Sleep disorder, unspecified | CPT/HCPCS: 90471; 90656; 96127; 99212 ==

== ENCOUNTER 2024-05-26 08:22 | Outpatient (AMB) | payer OTHER, SELFPAY ==
--- OUTSIDE RECORDS SUMMARY | 2024-05-26 08:35 | XMS_ITS | Clinical Summary ---
Author Organization [facility] ity Address [address] [place] [address] Care Team Providers Care Yeast Tender Name Role Phone Unavailable Primary Care Provider Unavailabl e Social History Tobacco Use Types Packs/Day Years Used Date Smoking Tobacco: Never Assessed Sex and Gender Information Value Date Recorded Sex Assigned at Not on file Gender Identity Not on file Sexual Orientation Not on file Plan of Treatment Health Maintenance Due Date Last Done Comments DTaP,Tdap,and Td Vaccines (1 - Tdap) 02/28/2008 Hepatitis B Vaccines (1 of 3 - 19+ 3-dose series) 02/28/2008 Cervical Cancer Screening: P ap Smear 2010 Depression Screening 03/18/2022 HIV Screening 03/18/2022 Hepatitis C Screening 03/18/2022 Social Influencers of Health Screening 03/18/2022 COVID-19 Vaccine ( - 2023-2 5 season) 2023 Influenza Vaccine (#1) 2023 HIB Vaccines Aged Out No longer eligi ble based on patient's age to complete this topic HPV Vaccines Aged Out No longer eligi ble based on patient's age to complete this topic Hepatitis A Vaccines Aged Out No long er eligible based on patient's age to complete this topic IPV Vaccines Aged Out No longer eligi ble based on patient's age to complete this topic MMR Vaccines Aged Out No longer eligi ble based on patient's age to complete this topic Meningococcal ACWY Vaccine Aged Out N o longer eligible based on patient's age to complete this topic Pneumococcal Vaccine: Pediat rics (0 to 5 Years) and At-Risk Patients (6 to 64 Years) Aged Out No longer eligible b ased on patient's age to complete this topic RSV Immunization Patients Un cathy 20 months Aged Out No longer eligible b ased on patient's age to complete this topic Varicella Vaccines Aged Out No longer eligible based on patient's age to complete this topic
--- NOTE | 2024-05-26 09:20 | MHC.PC.OV ---
Intake Visit Reasons: 3 weeks f/up Allergies No Known Allergies Allergy (Verified 05/26/24 09:20) Medication List - Last Reconciled 05/27/24 by Cayla Rivera MD cholecalciferol (vitamin D3) 25 mcg PO DAILY 90 days cyanocobalamin (vitamin B-12) 1,000 mcg PO DAILY 90 days escitalopram oxalate (Lexapro) 10 mg PO DAILY famotidine 40 mg PO .q am 90 days ferrous sulfate 324 mg PO BID 90 days pantoprazole 40 mg PO BEDTIME 90 days peg 3350-electrolytes 236-22.74-6.74 -5.86 gram (Golytely) 240 mL PO Q10M sucralfate (Carafate) 5 mL PO QID 30 days Tobacco use date assessed: 05/26/24 Dental Screening Dental Screen Date: 05/26/24 Did you have a dental visit in the last 12 months?: Yes Did you have a dental problem in the last 6 months where you did not have access to dental care?: No Was dental information given to patient?: Patient has dentist HPI 3 weeks f/up HPI Details - The patient is a 34-year-old female presenting with concerns related to her anxiety medication and gastrointestinal symptoms. - Patient reports heaviness in the head after taking the prescribed anxiety medication Lexapro 10 mg, initially taken as a whole tablet instead of the advised half, leading to sleeping difficulties of only 2-3 hours at a time. Patient thought medication is to sleep, notified her that this is to counteract anxiety, she may start taking only half a tablet in the morning and see how she does - Persistent gastrointestinal symptoms noted, including consistent vomiting episodes with inability to retain even water. However better than before after dietary modification Continue pantoprazole 40 mg patient is waiting for Gastroenterology appointment Problem List - Anxiety Disorder - Gastrointestinal Disturbance Patient Instructions - Continue taking only half a tablet of the anxiety medication in the morning as previously instructed. - Contact the fire sprinkler apparatus inspector for an appointment to address the ongoing gastrointestinal symptoms. - If any new symptoms or concerns arise, seek medical advice promptly. Review of Systems - General: No fever no chills - Neurological: No headaches no dizziness - Ear nose throat: No sore throat no hearing difficulty no ear pain - Cardiovascular: No syncope, no chest pain, no palpitations - Gastrointestinal: No nausea vomiting or diarrhea - Endocrine: No polyuria polydipsia no heat intolerance - Genitourinary: No dysuria , no blood in urine PFSH Medical History Unplanned , unknown if wanted Migraine without aura Low hemoglobin Vitamin D deficiency B12 deficiency Surgical History No pertinent past surgical history Family History Father CVD (cardiovascular disease) Mother No problems noted. Maternal Grandfather Diabetes mellitus Maternal Grandmother Diabetes mellitus Paternal Grandfather Diabetes mellitus Paternal Grandmother Diabetes mellitus Other No family history of cancer Social History Household Members: Spouse and Children Housing: House Are you a primary critical care transport nurse to a significant other at home: No Do you presently have visiting nurse or other home services: No Alcohol intake: never Patient Tobacco Use Status: Never used Tobacco e-Cigarette/Vaping Use: Never Used service: No Current occupational status: employed Cognitive needs: No Hearing needs: No Vision needs: No Female Reproductive History Menstrual Age of Menarche: 9 Questionnaire Thrive Questionnaire Date Thrive assessed: 05/06/24 AUDIT C Alcohol Use Questionnaire (AUDIT-C) 1. How often do you have a drink containing alcohol?: Never 3. How often do you have six or more drinks on one occasion?: Never Total Score: 0 Score Reviewed/Action Taken: Yes FOREIGN-7 AMB Questionnaire FOREIGN-7 Date FOREIGN - 7 assessed: 05/06/24 Source: Developed by Drs. Timothy Lloyd, Laney Ross, Ran Buckley and colleagues, with an educational izaiah from [employer]. Physical exam (Primary Care) Tobacco/Smoking Status: Tobacco use Status Tobacco use date assessed 05/26/24 05/26/24 09:21 Patient Tobacco Use Status Never used Tobacco 05/26/24 09:21 e-Cigarette/Vaping Use Never Used 05/26/24 09:21 Thrive Assessment: Date of Thrive Assessment Date Thrive assessed 05/06/24 05/26/24 09:21 Telehealth Telehealth Telehealth Platform: [facility] Location of provider rendering services: practice address Location of patient: address on file Patient Identification confirmed using: Name, : Yes Telehealth method: voice only Patient verbally consented to treatment: Yes Patient verbally consented to billing insurance company: Yes Patient informed of any privacy concerns related to visit: Yes Minutes spent on Phone/Video with Pt.: 13 Coding Level of Care Code Tele Est Pt Level 3 (18964) Diagnoses Gastroesophageal reflux disease without esophagitis K21.9 Esophagitis presence: without esophagitis Anxiety, generalized F41.1 Assessment & Plan Assessment & Plan (1) Acid reflux: Code(s): K21.9 - Gastro-esophageal reflux disease without esophagitis Category: Medical Qualifiers: Esophagitis presence: without esophagitis Qualified Code(s): K21.9 - Gastro-esophageal reflux disease without esophagitis (2) Anxiety, generalized: Code(s): F41.1 - Generalized anxiety disorder Category: Medical Plan - The patient is a 34-year-old female presenting with concerns related to her anxiety medication and gastrointestinal symptoms. - Patient reports heaviness in the head after taking the prescribed anxiety medication Lexapro 10 mg, initially taken as a whole tablet instead of the advised half, leading to sleeping difficulties of only 2-3 hours at a time. Patient thought medication is to sleep, notified her that this is to counteract anxiety, she may start taking only half a tablet in the morning and see how she does - Persistent gastrointestinal symptoms noted, including consistent vomiting episodes with inability to retain even water. However better than before after dietary modification Continue pantoprazole 40 mg patient is waiting for Gastroenterology appointment Problem List - Anxiety Disorder - Gastrointestinal Disturbance Patient Instructions - Continue taking only half a tablet of the anxiety medication in the morning as previously instructed. - Contact the fire sprinkler apparatus inspector for an appointment to address the ongoing gastrointestinal symptoms. - If any new symptoms or concerns arise, seek medical advice promptly. Review of Systems - General: No fever no chills - Neurological: No headaches no dizziness - Ear nose throat: No sore throat no hearing difficulty no ear pain - Cardiovascular: No syncope, no chest pain, no palpitations - Gastrointestinal: No nausea vomiting or diarrhea - Endocrine: No polyuria polydipsia no heat intolerance - Genitourinary: No dysuria , no blood in urine
== END 2024-05-26 10:09 | disposition home or self-care (01) ==
LOC: HO.HMCC 08:22
PROVIDERS: PCP Internal Medicine; Visit Provider Internal Medicine
DX: K21.9 Gastro-esophageal reflux disease without esophagitis (principal); F41.1 Generalized anxiety disorder

== ENCOUNTER → 2024-05-26 08:22 | Outpatient (BNVA) | payer OTHER, SELFPAY | PROVIDERS: PCP Internal Medicine; Visit Provider Internal Medicine ==

== ENCOUNTER 2024-07-08 11:00 | Outpatient (AMB) | payer OTHER, SELFPAY ==
--- NOTE | 2024-07-08 11:00 | A.OFFVIS_ITS ---
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 Tub Tender Required: No Tub Tender Services: Tub Tender Present Information Interpreted: clinical only Rotary Screen Printing Machine Operator: Rotary Screen Printing Machine Operator Present Allergies No Known Allergies Allergy (Verified 07/08/24 11:07) Medication List - Last Reconciled 07/08/24 by Petra Shelton CNM cholecalciferol (vitamin D3) 25 mcg PO DAILY 90 days cyanocobalamin (vitamin B-12) 1,000 mcg PO DAILY 90 days escitalopram oxalate 5 mg PO DAILY famotidine 40 mg PO .q am 90 days ferrous sulfate 324 mg PO BID 90 days pantoprazole 40 mg PO BEDTIME 90 days peg 3350-electrolytes [id number] -5.86 gram (Golytely) 240 mL PO Q10M sucralfate (Carafate) 5 mL PO QID 30 days Is last menstrual period known: Yes Last menstrual period: 07/08/24 HPI HPI 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 When I tried to get her to narrow it down to when it got worse she said it was a couple of weeks ago her period has started today. She is not on a method of control other than condoms she says her is not happy with the condoms but she was told she could not use any other method because she has high platelets. She also was told she has anemia. She also is having a workup for abdominal pain and something in her stomach and she has a history that is somewhat confusing in terms of past and future tense of having had a camera study for her stomach but she also needs to have another study done and there was a bowel cleansing medication in her medication list that she thinks she is supposed to take after her test. I asked her to please clarify this with her GI and primary care provider's so that she is very clear that she understands the directions as it maybe needed to be taken beforehand. She says she has an appointment with her primary care doctor this afternoon. Patient is unaware of ovulation and its place in the menstrual cycle. [facility] Medical History Unplanned , unknown if wanted Migraine without aura Low hemoglobin Vitamin D deficiency B12 deficiency Surgical History No pertinent past surgical history Family History Father CVD (cardiovascular disease) Mother No problems noted. Maternal Grandfather Diabetes mellitus Maternal Grandmother Diabetes mellitus Paternal Grandfather Diabetes mellitus Paternal Grandmother Diabetes mellitus Other No family history of cancer Social History Household Members: Spouse and Children Housing: House Are you a primary health care coordinator to a significant other at home: No Do you presently have visiting nurse or other home services: No Alcohol intake: never Patient Tobacco Use Status: Never used Tobacco e-Cigarette/Vaping Use: Never Used service: No Current occupational status: employed Cognitive needs: No Hearing needs: No Vision needs: No Female Reproductive History Menstrual Age of Menarche: 9 Date of last menstrual period: 07/08/24 control method: none Total pregnancies: 2 Full term: 2 Date of last pap smear: 01/10/20 (neg.) Physical Exam Vital Signs: Last Vital Signs BP 112/68 07/08/24 11:07 BMI result Body Mass Index 26.4 Const General: healthy appearing, comfortable, no acute distress, well developed and alert Nutritional Appearance: average body habitus Orientation/consciousness: patient oriented x3 Limitations: no limitations HEENT Head: Yes normocephalic Neck Neck: Yes normal visual inspection Chest Chest palpation & inspection: normal inspection of the chest Breast/axilla inspection: normal inspection of the breasts and normal inspection of the axillae Breast/axilla palpation: normal palpation of the breasts and normal palpation of the axillae Resp Effort & Inspection: normal respiratory effort GI Inspection: Yes normal to inspection, No Abdominal wall edema and No distended Palpation (GI): Soft to palpation and nontender Other: External exam within normal limits vagina is pink and moist with moderate dark menses becoming more bright red during exam Patient slightly tense with the exam however cervix multiparous pink smooth healthy appearing uterus small retroverted mobile nontender adnexa did not feel enlarged and do not feel tender. Good muscle tone. General: Yes bladder normal to palpation External Female Exam: normal external appearance and normal appearance of the urethra Speculum Exam - Vagina: normal appearance of the vagina, normal palpation and normal vaginal discharge Speculum Exam - Cervix: normal appearance of the cervix, normal palpation and nontender Bimanual exam- vagina & uterus: normal bimanual exam, normal palpation, uterine size normal, bladder normal to palpation, consistency normal, normal palpation, uterine mobility normal, uterine shape normal, No Cervical tenderness present, non-tender and no cervical motion tenderness Bimanual Exam- Adnexa, other: normal adnexae, no masses, normal and No adnexal tenderness Neuro General: patient oriented x3 Assessment & Plan Assessment & Plan (1) control counseling: Code(s): Z30.09 - Encounter for other general counseling and advice on contraception Category: Medical (2) Well woman exam with routine gynecological exam: Code(s): Z01.419 - Encounter for gynecological examination (general) (routine) without abnormal findings Category: Medical (3) Cervical cancer screening: Comment: No history of abnormals last Pap negative with negative HPV 01/07/2023 Code(s): Z12.4 - Encounter for screening for malignant neoplasm of cervix Category: Medical (4) Elevated platelet count: Code(s): R79.89 - Other specified abnormal findings of blood chemistry Category: Medical (5) Microcytic hypochromic anemia: Code(s): D50.9 - Iron deficiency anemia, unspecified Category: Medical (6) Pelvic pain: Comment: Worsened midcycle and has continued to start of this menses today, consistent with ovulatory function, we will await ultrasound and review w patient Code(s): R10.2 - Pelvic and perineal pain Category: Medical Plan 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 When I tried to get her to narrow it down to when it got worse she said it was a couple of weeks ago her period has started today. She is not on a method of control other than condoms she says her is not happy with the condoms but she was told she could not use any other method because she has high platelets. She also was told she has anemia. She also is having a workup for abdominal pain and something in her stomach and she has a history that is somewhat confusing in terms of past and future tense o f having had a camera study for her stomach but she also needs to have another study done and there was a bowel cleansing medication in her medication list that she thinks she is supposed to take after her test. I asked her to please clarify this with her GI and primary care provider's so that she is very clear that she understands the directions as it maybe needed to be taken beforehand. She says she has an appointment with her primary care doctor this afternoon. Patient is unaware of ovulation and its place in the menstrual cycle. ---------I discussed that 1 possibility is that the discomfort she is feeling on the left side is corresponding in timing exactly to when she would have ovulated and therefore the pre menstrual discomfort from having ovulated in a cycle. This was all new information to her. Discussed that this is something that is sometimes becomes more evident uncomfortable as we get older but it is a normal part of the cycle but nevertheless I am going to order a pelvic ultrasound to assess if there is anything pathologic going on.. Discussed the previous discussions had taken place about considering a Mirena or other IUD. Given that she had been told she was it a ParaGard IUD may not be the best choice for her but it was the 1 she had been considering 1st she says that she had been told that she should not use any of those methods because of her high platelets. I asked her to clarify this question then she sees her primary care provider today and if she did want a Mirena IU S for a more reliable method of control if her doctors tells her it is okay we can plan on that in the future. You would obviously need to be inserted at the beginning of a period. But we will be seeing her after the ultrasound to review the findings. I also asked her to clarify about the bowel prep medications she was given as usually they need to be taken before procedure and not after. Timeframe/Date Comment Pelvic ultrasound and follow-up visit after the ultrasound Patient will be seeing her primary care provider in clarify some health questions today. Orders: Orders US pelvic and transvaginal Today D50.9 - Iron deficiency anemia, unspecified, R10.2 - Pelvic and perineal pain, R79.89 - Other specified abnormal findings of blood chemistry, Z01.419 - Encounter for gynecological examination (general) (routine) without abnormal findings, Z12.4 - Encounter for screening for malignant neoplasm of cervix, Z30.09 - Encounter for other general counseling and advice on contraception Coding Level of Care Code Est Pt Prev Care 18-39y(52422) Diagnoses control counseling Z30.09 Well woman exam with routine gynecological exam Z01.419 Cervical cancer screening Z12.4 Elevated platelet count R79.89 Microcytic hypochromic anemia D50.9 Pelvic pain R10.2
[2024-07-08 11:07] VITALS: BP 112/68; BMI 26.4
== END 2024-07-08 12:12 | disposition home or self-care (01) ==
LOC: HO.HWSM 11:01
PROVIDERS: PCP Internal Medicine; Visit Provider Advanced Practice Midwife
DX: Z01.419 Encounter for gynecological examination (general) (routine) without abnormal findings (principal); R79.89 Other specified abnormal findings of blood chemistry; D50.9 Iron deficiency anemia, unspecified; R10.2 Pelvic and perineal pain
CPT/HCPCS: 99395; 99459

== ENCOUNTER 2024-07-08 11:00 | Outpatient (REF) | payer OTHER, SELFPAY ==
[2024-07-10 12:49] LABS: Bacterial Vaginosis PCR NEGATIVE (Negative); Candida Group PCR NOT DETECTED (Not Detect); Candida glab krusei PCR DETECTED (Not Detect); Trichomonas vaginalis PCR NOT DETECTED (Not Detect)
[2024-07-10 12:52] LABS: CT PCR NOT DETECTED (Not Detect.); NG PCR NOT DETECTED (Not Detect.)
== END 2024-07-08 11:01 | disposition home or self-care (01) ==
LOC: HO.LAB 11:00
PROVIDERS: PCP Internal Medicine; Visit Provider Advanced Practice Midwife
DX: Z01.419 Encounter for gynecological examination (general) (routine) without abnormal findings (principal); N89.8 Other specified noninflammatory disorders of vagina; Z20.2 Contact with and (suspected) exposure to infections with a predominantly sexual mode of transmission
CPT/HCPCS: 81515; 87491; 87591; 99395; 99459

== ENCOUNTER 2024-07-08 11:42 | Outpatient (REF) | payer OTHER, SELFPAY | END 2024-07-08 11:43 | disposition home or self-care (01) | LOC: HO.LNP 11:42 | PROVIDERS: Visit Provider Advanced Practice Midwife | DX: R10.9 Unspecified abdominal pain (principal); K21.9 Gastro-esophageal reflux disease without esophagitis; Z84.1 Family history of disorders of kidney and ureter; N89.8 Other specified noninflammatory disorders of vagina; Z20.2 Contact with and (suspected) exposure to infections with a predominantly sexual mode of transmission | CPT/HCPCS: 87626; 88175; 99212 ==

== ENCOUNTER 2024-07-08 14:06 | Outpatient (AMB) | payer OTHER, SELFPAY ==
[2024-07-08 14:09] VITALS: BP 112/76; PULSE 88; TEMP 36.6; O2SAT 100; BMI 26.5
--- NOTE | 2024-07-08 14:09 | MHC.PC.OV ---
Vital Signs 07/08/24 14:09 Height 5 ft 3 in Weight 149 lb 6 oz BMI 26.5 BP 112/76 Blood Pressure Location Lt brachial Position Sitting Pulse 88 Pulse Source Pulse Oximeter Temp 97.9 F Temp Source Oral Pulse Oximetry (%) 100 Intake Visit Reasons: Stomach ache Allergies No Known Allergies Allergy (Verified 07/08/24 14:09) Medication List - Last Reconciled 07/08/24 by Cayla Rivera MD cholecalciferol (vitamin D3) 25 mcg PO DAILY 90 days cyanocobalamin (vitamin B-12) 1,000 mcg PO DAILY 90 days escitalopram oxalate 5 mg PO DAILY famotidine 40 mg PO .q am 90 days ferrous sulfate 324 mg PO BID 90 days pantoprazole 40 mg PO BEDTIME 90 days sucralfate (Carafate) 5 mL PO QID 30 days Tobacco use date assessed: 05/26/24 Dental Screening Dental Screen Date: 05/26/24 HPI Stomach ache HPI Details - The patient is a 34-year-old female presenting with left flank pain radiating to the groin area. - She experienced intermittent pain for one to two weeks, with the first episode following a visit to urgent care. - Pain occurs during rest periods, especially when sitting or lying down, and is not related to eating. - The severity and frequency of the pain have increased from prior episodes occurring a few months earlier. - The patient continues to experience mild gastroesophageal reflux disease despite previous management efforts, including a barium swallow test conducted last year. She is established with gastroenterology and has appointment end of next month Problem List - pain, left flank to groin - Gastroesophageal reflux disease (GERD) Patient Instructions - Continue drinking plenty of water, aiming for approximately five bottles a day. - Await a call for scheduling the kidney ultrasound. - Blood work to be completed the following day. - Follow up after the kidney ultrasound for further evaluation. Review of Systems - General: No fever no chills - Neurological: No headaches no dizziness - Ear nose throat: No sore throat no hearing difficulty no ear pain - Cardiovascular: No syncope, no chest pain, no palpitations - Gastrointestinal: No nausea vomiting or diarrhea - Endocrine: No polyuria polydipsia no heat intolerance - Genitourinary: No dysuria , no blood in urine Physical Exam General: No acute distress HEENT: No acute findings Neck: Supple Respiratory system: Able to talk in full sentences, no audible wheeze cardiovascular: S1-S2 regular in rate and rhythm Gastrointestinal: Slight pain in the abdomen, particularly from the left flank to groin Extremities: No new findings MOLECULAR MODELER: Alert awake oriented x3 motor sensory intact Skin: Normal turgor PFSH Medical History Unplanned , unknown if wanted Migraine without aura Low hemoglobin Vitamin D deficiency B12 deficiency Surgical History No pertinent past surgical history Family History Father CVD (cardiovascular disease) Mother No problems noted. Maternal Grandfather Diabetes mellitus Maternal Grandmother Diabetes mellitus Paternal Grandfather Diabetes mellitus Paternal Grandmother Diabetes mellitus Other No family history of cancer Social History Household Members: Spouse and Children Housing: House Are you a primary aged or disabled carer to a significant other at home: No Do you presently have visiting nurse or other home services: No Alcohol intake: never Patient Tobacco Use Status: Never used Tobacco e-Cigarette/Vaping Use: Never Used service: No Current occupational status: employed Cognitive needs: No Hearing needs: No Vision needs: No Female Reproductive History Menstrual Age of Menarche: 9 Questionnaire Thrive Questionnaire Date Thrive assessed: 05/06/24 I am a: Patient What is your living situation today?: I have a steady place to live Within the past 12 months, did the food you bought not last and you didn't have the money to get more?: I choose not to answer this question Within the past 12 months, did you worry whether your food would run out before you got money to buy more?: I choose not to answer this question Do you have trouble paying for medicines?: No Do you have trouble getting transportation to medical appointments?: No Do you have trouble paying your heating and electricity bill?: No Do you have trouble taking care of your child, family member or friend?: No Do you have trouble with day-to-day activities such as bathing, preparing meals, shopping, managing finances, etc.?: No Are you currently unemployed and looking for a job?: No Are you interested in more education?: No Please select the resources that you would like help with: None Currently or been in a relationship where the following occur: I choose not to answer THRIVE Score: 0 FOREIGN-7 AMB Questionnaire FOREIGN-7 Date FOREIGN - 7 assessed: 05/06/24 Source: Developed by Drs. Timothy Lloyd, Laney Ross, Ran Buckley and colleagues, with an educational izaiah from [employer]. Physical exam (Primary Care) Vital Signs: Last Vital Signs Temp 97.9 F 07/08/24 14:09 Pulse 88 07/08/24 14:09 BP 112/76 07/08/24 14:09 Pulse Ox 100 07/08/24 14:09 BMI result Body Mass Index 26.5 Tobacco/Smoking Status: Tobacco use Status Tobacco use date assessed 05/26/24 07/08/24 14:10 Patient Tobacco Use Status Never used Tobacco 07/08/24 14:10 e-Cigarette/Vaping Use Never Used 07/08/24 14:10 Thrive Assessment: Date of Thrive Assessment Date Thrive assessed 05/06/24 07/08/24 14:10 Currently or been in a relationship where the following occur: I choose not to answer Coding Level of Care Code Est Pt Level 3 (31024) Diagnoses Acute left flank pain R10.9 Family history of renal stone Z84.1 Assessment & Plan Assessment & Plan (1) Acute left flank pain: Code(s): R10.9 - Unspecified abdominal pain Category: Medical (2) Family history of renal stone: Code(s): Z84.1 - Family history of disorders of kidney and ureter Category: Medical Plan - The patient is a 34-year-old female presenting with left flank pain radiating to the groin area. - She experienced intermittent pain for one to two weeks, with the first episode following a visit to urgent care. - Pain occurs during rest periods, especially when sitting or lying down, and is not related to eating. - The severity and frequency of the pain have increased from prior episodes occurring a few months earlier. Patient's mother has kidney stones - The patient continues to experience mild gastroesophageal reflux disease despite previous management efforts, including a barium swallow test conducted last year. She is established with gastroenterology and has appointment end of next month Problem List - pain, left flank to groin - Gastroesophageal reflux disease (GERD) Patient Instructions - Continue drinking plenty of water, aiming for approximately five bottles a day. - Await a call for scheduling the kidney ultrasound. - Blood work to be completed the following day. - Follow up after the kidney ultrasound for further evaluation. Orders: Orders Complete Blood Count Auto Diff Today R10.9 - Unspecified abdominal pain Comprehensive Met. Panel Today R10.9 - Unspecified abdominal pain US renal LT Today R10.9 - Unspecified abdominal pain UA CC w/rflx Micro + Cult Today R10.9 - Unspecified abdominal pain
--- OUTSIDE RECORDS SUMMARY | 2024-07-08 16:25 | XMS_ITS | Clinical Summary ---
Author Organization [facility] ity Address [address] [place] [address] Care Team Providers Care Elementary Assistant Principal Name Role Phone Unavailable Primary Care Provider Unavailabl e Social History Tobacco Use Types Packs/Day Years Used Date Smoking Tobacco: Never Assessed Comments Unknown Sex and Gender Information Value Date Recorded Sex Assigned at Not on file Legal Sex Female 11:40 AM EST Gender Identity Not on file Sexual Orientation Not on file Plan of Treatment Health Maintenance Due Date Last Done Comments DTaP,Tdap,and Td Vaccines (1 - Tdap) 02/28/2008 Hepatitis B Vaccines (1 of 3 - 19+ 3-dose series) 02/28/2008 Cervical Cancer Screening: P ap Smear 2010 Depression Screening 03/18/2022 HIV Screening 03/18/2022 Hepatitis C Screening 03/18/2022 Social Influencers of Health Screening 03/18/2022 COVID-19 Vaccine (2023-2 5 season) 2023 Influenza Vaccine (#1) 2023 [...] patient's age to complete this topic Meningococcal B Vacine Aged Out No lo nger eligible based on patient's age to complete [...]
== END 2024-07-08 15:16 | disposition home or self-care (01) ==
LOC: HO.HMCC 14:06
PROVIDERS: PCP Internal Medicine; Visit Provider Internal Medicine
DX: R10.9 Unspecified abdominal pain (principal); Z84.1 Family history of disorders of kidney and ureter

== ENCOUNTER 2024-07-09 07:56 | Outpatient (REF) | payer OTHER, SELFPAY ==
[2024-07-09 12:01] LABS: MANUAL DIFF FLAG NO
[2024-07-09 12:07] LABS: Basophils Percent Auto 0.2 % (0-2); Eosinophils Percent Auto 0.4 % (0-4); Hematocrit 34.8 % (37.0-47.0); Imm Gran Abs Auto 0.01 X10*3/uL (0.00-0.03); Imm Gran Pct Auto 0.2 % (0.0-0.4); Lymphocytes Absolute Auto 1.6 X10*3/uL (1.2-4.9); Lymphocytes Percent Auto 35.1 % (20-40); Mean Corpuscular HGB Conc 31.6 g/dl (31.0-35.0); Mean Corpuscular Hemoglobin 24.9 pg (27.0-33.0); Mean Corpuscular Volume 78.7 fL (80.0-98.0); Mean Platelet Volume 10.3 fL (9.4-12.3); Monocytes Absolute Auto 0.4 X10*3/uL (0.1-1.2); Monocytes Percent Auto 8.2 % (2-11); Neutrophils Absolute Auto 2.6 x10*3/uL (2.0-8.3); Neutrophils Percent Auto 55.9 % (45-73); Platelet Count 571 X10*3/uL (160-400); Red Blood Count 4.42 X10*6/uL (4.20-5.50); Red Cell Distribution Width 13.2 % (11.0-16.0); White Blood Count 4.6 X10*3/uL (4.8-10.8)
[2024-07-09 12:23] LABS: Alanine Aminotransferase 20 U/L (0-31); Albumin Level 4.2 g/dL (3.5-5.0); Alkaline Phosphatase 90 U/L (39-117); Anion Gap 12 (12-20); Aspartate Amino Transferase 22 U/L (5-31); Bilirubin Total 0.4 mg/dL (0.0-1.0); Blood Urea Nitrogen 10 mg/dL (9-16); Calcium 9.2 mg/dL (8.4-10.2); Carbon Dioxide 24 mmol/L (22-29); Chloride 106 mmol/L (96-108); Estimated Glomerular Filt Rate > 60; Glucose Random 96 mg/dL (60-115); Potassium 3.6 mmol/L (3.3-5.1); Sodium 138 mmol/L (135-145); Total Protein 7.8 g/dL (6.5-8.0)
[2024-07-09 12:40] LABS: Appearance Urine Cloudy; Color Urine Yellow; Glucose Urine UA Negative (Negative); Leukocyte Esterase Urine Small (1+) (Negative); Nitrite Urine Negative (Negative); PH 5.5 (5.0-9.0); UMIC TRIGGER UACC YES; Urine Blood Large (3+) (Negative); Urine Ketones Trace mg/dL (Negative); Urine Protein 30 (1+) mg/dL (Neg-Trace)
[2024-07-09 12:43] LABS: Bacteria Urine Trace (None Seen); Hyaline Casts Urine 0-2 /LPF (0-2); RBC Urine >20 /HPF (0-2); UACC Culture Trigger YES
== END 2024-07-09 07:57 | disposition home or self-care (01) ==
LOC: HO.HMGCLDS 07:56
PROVIDERS: PCP Internal Medicine; Visit Provider Internal Medicine
DX: R10.9 Unspecified abdominal pain (principal)
CPT/HCPCS: 36415; 80053; 81001; 85025; 87086

== ENCOUNTER 2024-07-22 13:36 | Outpatient (REF) | payer OTHER, SELFPAY ==
--- NOTE | ~2024-07-22 | US_ITS ---
CLINICAL HISTORY: ACUTE LEFT FLANK PAIN US Renal Comparison: None Findings: Left kidney normal size and echotexture, 10.2 cm length. No collecting system dilatation of left kidney. Normal color Doppler. IMPRESSION: 1. Normal left kidney. This document has been electronically signed by: Kyle Morgan MD on 07/23/2024 08:01:04
--- OUTSIDE RECORDS SUMMARY | 2024-07-22 15:27 | XMS_ITS | Clinical Summary ---
Author Organization [facility] ity Address [address] [place] [address] Care Team Providers Care Airport Electrician Name Role Phone Unavailable Primary Care Provider [...]
== END 2024-07-22 13:37 | disposition home or self-care (01) ==
LOC: HO.HMGCX 13:36
PROVIDERS: PCP Internal Medicine; Visit Provider Internal Medicine
DX: R10.9 Unspecified abdominal pain (principal)
CPT/HCPCS: 76775

== ENCOUNTER → 2024-07-22 13:39 | Outpatient (BNV) | payer OTHER, SELFPAY | PROVIDERS: PCP Internal Medicine; Visit Provider Specialist | DX: R10.9 Unspecified abdominal pain (principal) | CPT/HCPCS: 76775 ==

== ENCOUNTER 2024-08-09 11:01 | Outpatient (REF) | payer OTHER, SELFPAY ==
--- NOTE | ~2024-08-09 | US_ITS ---
EXAMINATION: US PELVIS CLINICAL INFORMATION: Encounter for other general counseling and advise on contraceptive. COMPARISON: None available. TECHNIQUE: Ultrasound of the pelvis is performed using both transabdominal and transvaginal transducers along with Doppler. Transvaginal imaging is performed due to inadequate visualization transabdominally. FINDINGS: Uterus: The uterus is in retroversion flexion position and measures 8 x 4 x 6 cm. Volume: 103 cc. The double wall endometrial thickness is 4 mm. The uterus is smooth in contour and has normal myometrial echogenicity. No visible fibroid. Adnexa: Both ovaries are visualized. There is normal color flow to the adnexa. There is no ovarian torsion. There is no pelvic ascites or fluid collection. Right ovary measures 3 x 2 x 2 cm. Volume: 5 cc. Scattered follicles. Left ovary measures 3 x 2 x 2 cm. Volume: 4 cc. There is an 8 mm hyperechoic lesion without flow on color Doppler interrogation. US/US pelvic and transvaginal IMPRESSION: Normal uterus is in retroversion flexion position which could be seen patients with endometriosis. No ovarian torsion. Questionable 8 mm lipoma versus hemorrhagic cyst, left ovary. Electronically signed by: Jarocho Raymond MD 08/10/2024 08:39 AM EDT
--- OUTSIDE RECORDS SUMMARY | 2024-08-09 13:11 | XMS_ITS | Clinical Summary ---
Author Organization [facility] ity Address [address] [place] [address] Care Team Providers Care Turfgrass Management Professor Name Role Phone Unavailable Primary Care Provider [...] Vaccine (2023-2 5 season) 2023 Influenza Vaccine (Season Ended) 2024 HIB Vaccines Aged Out No longer eligi [...] age to complete this topic Meningococcal B Vaccine Aged Out No l onger eligible based on patient's age to complete [...]
== END 2024-08-09 11:02 | disposition home or self-care (01) ==
LOC: HO.US 11:01
PROVIDERS: PCP Internal Medicine; Visit Provider Advanced Practice Midwife
DX: D50.9 Iron deficiency anemia, unspecified (principal); R79.89 Other specified abnormal findings of blood chemistry; R10.2 Pelvic and perineal pain
CPT/HCPCS: 76830; 76856

== ENCOUNTER → 2024-08-09 11:03 | Outpatient (BNV) | payer OTHER, SELFPAY | PROVIDERS: PCP Internal Medicine; Visit Provider Radiology Diagnostic Radiology | DX: N83.202 Unspecified ovarian cyst, left side (principal) | CPT/HCPCS: 76830; 76856 ==

== ENCOUNTER 2024-09-14 10:43 | Outpatient (AMB) | payer OTHER, SELFPAY ==
--- NOTE | 2024-09-14 10:45 | MHC.OFFVIS ---
Vital Signs 09/14/24 10:46 Height 5 ft 3 in Weight 149 lb 14.629 oz BMI 26.6 BP 125/85 Blood Pressure Location Lt brachial Position Sitting Pulse 74 Intake Visit Reasons: Epigastric Intake Note: Luis presents in the office as a follow up for epigastric pains. CC: She states that she is still having the stomach pains. She states that her food comes up and stick in her esophgus. She states that her bowels are normal for the most part. Director Digital Catalogue Required: No Allergies No Known Allergies Allergy (Verified 09/14/24 10:48) HPI Comments Details: 33 y.o F who is here for abd pain, vomiting. Started around 2 months ago. Notices cloth folder hand burning epigastric/retrosternal pain with nausea and vomiting. Has at least 2 episodes of vomiting. Pain sometimes even wakes up from sleeping. Feels short of breath sometimes during these episodes. No blood in vomit. Appetite is good. No unintentional weight change. BMs are regular. No fam hx of esophageal/gastric or colon cancer. Has been taking protonix and pepcid and has been helping. Labs reviewed patient also with thrombocytosis, and normocytic anemia. Used to see Hematology, but lost to follow-up in 2021. Takes baby aspirin daily for thrombocytosis. Barium swallow 03/02/24: No evidence of stricture, mass, or ulcerations identified. Esophageal peristalsis was normal. No evidence of hiatus hernia identified. Moderate gastroesophageal reflux is seen up to the level the aortic arch. 09/14/24: Here for routine follow up. Reports heartburn and reflux sx without dysphagia. Had run out of pantoprazole. 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 Sees hematology. Has not yet received appt for egd/colo. [facility] Medical History Unplanned , unknown if wanted Migraine without aura Low hemoglobin Vitamin D deficiency B12 deficiency Surgical History No pertinent past surgical history Family History Father CVD (cardiovascular disease) Mother No problems noted. Maternal Grandfather Diabetes mellitus Maternal Grandmother Diabetes mellitus Paternal Grandfather Diabetes mellitus Paternal Grandmother Diabetes mellitus Other No family history of cancer Social History Household Members: Spouse and Children Housing: House Are you a primary medicare sales executive to a significant other at home: No Do you presently have visiting nurse or other home services: No Alcohol intake: never Patient Tobacco Use Status: Never used Tobacco e-Cigarette/Vaping Use: Never Used service: No Current occupational status: employed Cognitive needs: No Hearing needs: No Vision needs: No Female Reproductive History Menstrual Age of Menarche: 9 Review of Systems Const All systems reviewed & are unremarkable except as noted in HPI and below Physical Exam Vital Signs: Last Vital Signs Pulse 74 09/14/24 10:46 BP 125/85 09/14/24 10:46 BMI result Body Mass Index 26.6 No apparent distress Nonicteric Abdomen soft, nondistended Alert and oriented x3, normal gait Assessment & Plan Assessment & Plan (1) Acid reflux: Code(s): K21.9 - Gastro-esophageal reflux disease without esophagitis Category: Medical Qualifiers: Esophagitis presence: without esophagitis Qualified Code(s): K21.9 - Gastro-esophageal reflux disease without esophagitis (2) Anemia: Code(s): D64.9 - Anemia, unspecified Category: Medical Plan 1. GERD Has known reflux based on sx and barium swallow. Reviewed will likely need PPI snf. Plan: - Pantoprazole refilled - Will titrate down to lowest effective dose after 8-12 weeks. 2. 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 EGD colo pending to complete work up. Plan: - PEG prep instructions reviewed and handout provided - Check CBC, iron studies Follow up after scopes Orders: Orders IRON PROFILE Today D64.9 - Anemia, unspecified Ferritin Today D64.9 - Anemia, unspecified Complete Blood Count no Diff Today D64.9 - Anemia, unspecified Medications: Refilled pantoprazole 40 mg PO BEDTIME 90 tabs 2RF 90 days Discontinued famotidine Discontinued Reason: Doctor's Order 40 mg PO .q am 90 days 90 tabs 0RF Coding Level of Care Code Est Pt Level 4 (69050) Diagnoses Gastroesophageal reflux disease without esophagitis K21.9 Esophagitis presence: without esophagitis Anemia D64.9
[2024-09-14 10:46] VITALS: BP 125/85; PULSE 74; BMI 26.6
--- OUTSIDE RECORDS SUMMARY | 2024-09-14 11:46 | XMS_ITS | Clinical Summary ---
Author Organization [facility] ity Address [address] [place] [address] Care Team Providers Care Software Configuration Manager Name Role Phone Unavailable Primary Care Provider [...]
== END 2024-09-14 11:56 | disposition home or self-care (01) ==
LOC: HO.HGI 10:43
PROVIDERS: PCP Internal Medicine; Visit Provider Internal Medicine
DX: K21.9 Gastro-esophageal reflux disease without esophagitis (principal); D64.9 Anemia, unspecified
CPT/HCPCS: 99214

== ENCOUNTER 2024-09-14 10:43 | Outpatient (REF) | payer OTHER, SELFPAY ==
[2024-09-14 11:24] LABS: MANUAL DIFF FLAG NO
[2024-09-14 11:29] LABS: Basophils Percent Auto 0.2 % (0-2); Eosinophils Percent Auto 0.6 % (0-4); Hematocrit 33.5 % (37.0-47.0); Hemoglobin 10.8 g/dl (12.0-16.0); Imm Gran Abs Auto 0.02 X10*3/uL (0.00-0.03); Imm Gran Pct Auto 0.3 % (0.0-0.4); Lymphocytes Absolute Auto 1.8 X10*3/uL (1.2-4.9); Lymphocytes Percent Auto 27.8 % (20-40); Mean Corpuscular HGB Conc 32.2 g/dl (31.0-35.0); Mean Corpuscular Hemoglobin 25.3 pg (27.0-33.0); Mean Corpuscular Volume 78.5 fL (80.0-98.0); Mean Platelet Volume 9.9 fL (9.4-12.3); Monocytes Absolute Auto 0.5 X10*3/uL (0.1-1.2); Monocytes Percent Auto 7.8 % (2-11); Neutrophils Absolute Auto 4.1 x10*3/uL (2.0-8.3); Neutrophils Percent Auto 63.3 % (45-73); Platelet Count 512 X10*3/uL (160-400); Red Blood Count 4.27 X10*6/uL (4.20-5.50); Red Cell Distribution Width 13.4 % (11.0-16.0); White Blood Count 6.4 X10*3/uL (4.8-10.8)
[2024-09-14 11:52] LABS: Alanine Aminotransferase 27 U/L (0-31); Albumin Level 4.5 g/dL (3.5-5.0); Alkaline Phosphatase 97 U/L (39-117); Anion Gap 8 (12-20); Aspartate Amino Transferase 26 U/L (5-31); Bilirubin Total 0.3 mg/dL (0.0-1.0); Blood Urea Nitrogen 8 mg/dL (9-16); Calcium 9.1 mg/dL (8.4-10.2); Carbon Dioxide 28 mmol/L (22-29); Chloride 106 mmol/L (96-108); Estimated Glomerular Filt Rate > 60; Glucose Random 88 mg/dL (60-115); Iron 58 mcg/dL (30-160); Percent Iron Saturation 20 % (15-50); Sodium 138 mmol/L (135-145); Total Iron Binding Capacity 296 mcg/dL (228-428); Total Protein 7.7 g/dL (6.5-8.0); Unsaturated Iron Binding 238 ug/dL
[2024-09-14 12:03] LABS: Ferritin 38 ng/mL (10-122)
[2024-09-14 12:26] LABS: Appearance Urine Clear; Color Urine Yellow; Glucose Urine UA Negative (Negative); Leukocyte Esterase Urine Negative (Negative); Nitrite Urine Negative (Negative); PH 7.5 (5.0-9.0); Urine Blood Negative (Negative); Urine Ketones Negative (Negative); Urine Protein Negative (Neg-Trace)
[2024-09-14 12:48] LABS: Vitamin B12 527 pg/mL (200-900)
== END 2024-09-14 10:44 | disposition home or self-care (01) ==
LOC: HO.LAB 10:43
PROVIDERS: Internal Medicine Medical Oncology; PCP Internal Medicine; Visit Provider Internal Medicine
DX: Z00.01 Encounter for general adult medical examination with abnormal findings (principal); K21.9 Gastro-esophageal reflux disease without esophagitis; L70.9 Acne, unspecified; D75.839 Thrombocytosis, unspecified; D50.9 Iron deficiency anemia, unspecified; G43.909 Migraine, unspecified, not intractable, without status migrainosus; D64.9 Anemia, unspecified; E55.9 Vitamin D deficiency, unspecified; E53.8 Deficiency of other specified B group vitamins; R10.9 Unspecified abdominal pain
CPT/HCPCS: 36415; 80053; 81003; 82607; 82728; 83540; 85025; 85027; 99212

== ENCOUNTER 2024-10-28 11:38 | Day surgery (SDC) | payer OTHER, MEDICAID, SELFPAY ==
[2024-10-26 14:54] VITALS: BMI 26.6
--- NOTE | 2024-10-26 15:26 | HO.ANESPROP2 ---
Documented by User: Eve Mcdonald NP 10/26/24 15:32 HPI - Anesthesia Eval Consult details Narrative: 34 yr old female for upper Endoscopy and Colonoscopy. Hx of trigeminal neuralgia, last seen for this 2021; not on any medication for this condition. PMFSH Active Problems Active Problems: All Active Problems (Updated 10/26/24 @ 15:01 by Melvi Blackwell RN) Family history of renal stone (Acute) Acute left flank pain (Acute) Pelvic pain (Acute) Difficulty sleeping (Acute) Anxiety, generalized (Acute) Anemia (Acute) Chest pain (Acute) Mid back pain (Acute) Strain of right trapezius muscle (Acute) Encounter for general adult medical examination with abnormal findings (Acute) Acne (Acute) Vomiting (Acute) Epigastric pain (Acute) Acid reflux (Acute) Strain of cervical portion of both trapezius muscles (Acute) Thoracic back pain (Acute) Vaginal irritation (Acute) Cervical cancer screening (Acute) Well woman exam with routine gynecological exam (Acute) Elevated TSH (Acute) Shortness of breath (Acute) Left lumbar radiculitis (Acute) control counseling (Acute) Hx of dilation and curettage (Acute) Elevated platelet count (Acute) Thrombocytosis (Acute) Paresthesia of both feet (Acute) Unplanned , unknown if wanted (Acute) Trigeminal neuralgia of right side of face (Acute) Microcytic hypochromic anemia (Acute) Migraine headache (Acute) Viral conjunctivitis of left eye (Acute) Trigeminal neuralgia of left side of face (Acute) Low hemoglobin (Acute) Vitamin D deficiency (Acute) B12 deficiency (Acute) Past Medical History Medical History (Updated 10/26/24 @ 15:01 by Melvi Blackwell RN) Trigeminal neuralgia of right side of face Thrombocytosis GERD (gastroesophageal reflux disease) Anemia Migraine without aura Vitamin D deficiency B12 deficiency Family History Family History Father CVD (cardiovascular disease) Mother No problems noted. Maternal Grandfather Diabetes mellitus Maternal Grandmother Diabetes mellitus Paternal Grandfather Diabetes mellitus Paternal Grandmother Diabetes mellitus Other No family history of cancer Surgical History Surgical History No pertinent past surgical history Social History Social History Household Members: Spouse and Children Housing: House Are you a primary respiratory care assistant to a significant other at home: No Do you presently have visiting nurse or other home services: No Alcohol intake: never Patient Tobacco Use Status: Never used Tobacco e-Cigarette/Vaping Use: Never Used Advance Directives: No Advance Directives Information Provided: Yes service: No Current occupational status: employed Cognitive needs: No Hearing needs: No Vision needs: No Meds Allergies Allergy/AdvReac Type Severity Reaction Status Date / Time No Known Allergies Allergy Verified 10/28/24 12:27 Home Medications ?Medication ?Instructions ?Recorded ?Confirmed ?Last Taken ?Type benzoyl peroxide 10 % topical 1 appl topical DAILY 09/14/24 10/28/24 Unknown History cleanser cholecalciferol (vitamin D3) 25 25 mcg PO DAILY 09/14/24 10/28/24 Unknown History mcg (1,000 unit) tablet (Vitamin D3) clindamycin phosphate 1 % topical 1 appl topical BID 09/14/24 10/28/24 Unknown History gel ketoconazole 2 % shampoo 1 appl topical DAILY 09/14/24 10/28/24 Unknown History minoxidil 2.5 mg tablet 2.5 mg PO DAILY 09/14/24 10/28/24 Unknown History naproxen 500 mg tablet,delayed 500 mg PO BID 09/14/24 10/28/24 10/26/24 History release Exam Height,Weight and Vital Signs: Height 5 ft 3 in Weight 68.039 kg Documented by User: Cordell Najera MD 10/28/24 12:29 [facility] Past Medical History Medical History (Updated 10/26/24 @ 15:01 by Melvi Blackwell RN) Trigeminal neuralgia of right side of face Thrombocytosis GERD (gastroesophageal reflux disease) Anemia Migraine without aura Vitamin D deficiency B12 deficiency Patient : No Family History Family History Father CVD (cardiovascular disease) Mother No problems noted. Maternal Grandfather Diabetes mellitus Maternal Grandmother Diabetes mellitus Paternal Grandfather Diabetes mellitus Paternal Grandmother Diabetes mellitus Other No family history of cancer Family history of problems with anesthesia: No Surgical History Surgical History No pertinent past surgical history History of Problems with Anesthesia: No Social History Social History Household Members: Spouse and Children Housing: House Are you a primary respiratory care assistant to a significant other at home: No Do you presently have visiting nurse or other home services: No Alcohol intake: never Patient Tobacco Use Status: Never used Tobacco e-Cigarette/Vaping Use: Never Used Advance Directives: No Advance Directives Information Provided: Yes service: No Current occupational status: employed Cognitive needs: No Hearing needs: No Vision needs: No Meds Allergies Allergy/AdvReac Type Severity Reaction Status Date / Time No Known Allergies Allergy Verified 10/28/24 12:27 Home Medications ?Medication ?Instructions ?Recorded ?Confirmed ?Last Taken ?Type benzoyl peroxide 10 % topical 1 appl topical DAILY 09/14/24 10/28/24 Unknown History cleanser cholecalciferol (vitamin D3) 25 25 mcg PO DAILY 09/14/24 10/28/24 Unknown History mcg (1,000 unit) tablet (Vitamin D3) clindamycin phosphate 1 % topical 1 appl topical BID 09/14/24 10/28/24 Unknown History gel ketoconazole 2 % shampoo 1 appl topical DAILY 09/14/24 10/28/24 Unknown History minoxidil 2.5 mg tablet 2.5 mg PO DAILY 09/14/24 10/28/24 Unknown History naproxen 500 mg tablet,delayed 500 mg PO BID 09/14/24 10/28/24 10/26/24 History release Exam Airway Mallampati Class: I TM Dist: >3cm Neck ROM: Full Loose/Missing/Broken Teeth: Yes and Upper Heart: ok Lungs: ok Assessment and Plan Assessment Anesthesia Assessment: Anesthesia Plan Discussed and Chart Reviewed Final Anesthetic Review Family History of Problems with Anesthesia: No History of Problems with Anesthesia: No NPO: Yes ASA Class: II Final Preanesthetic Review: No Changes in Pt Med Stat, Meds/Allgs Chart Reviewed, Consent Obtained/Reviewed and Anes Risks/Benef Reviewed Patient Risk: Intermediate Procedure Risk: Intermediate Anesthetic Plan Anesthetic Plan: Agree w/ Assess. and Plan and TIVA Disposition: Standard PACU
[2024-10-28 12:29] VITALS: BP 126/53; PULSE 79; RESP 16; TEMP 37.2; O2SAT 100; BMI 26.0
[2024-10-28 12:33] LABS: UPreg QC Valid YES
[2024-10-28] MEDS: Lactated Ringers 1,000 ML 100 ML IVCONT (12:41)
--- NOTE | 2024-10-28 13:19 | MHC.SHP ---
Pre-Procedural Eval Section A - 24 Hr Update-Section A only Date of Service: 10/28/24 Section B - Complete if H&P > 30 days Chief Complaint: gerd,anemia, Details of Present Illness: PMH: Migraine without aura Low hemoglobin Vitamin D deficiency B12 deficiency Surgical History No pertinent past surgical history Family History Father CVD (cardiovascular disease) Mother No problems noted. Maternal Grandfather Diabetes mellitus Maternal Grandmother Diabetes mellitus Paternal Grandfather Diabetes mellitus Paternal Grandmother Diabetes mellitus Other No family history of cancer Present Medications: see Short Stay Collaborative assessment Medical History: No relevant PMH History of Previous Operations: No relevant previous surgery Allergies: Allergies Allergy/AdvReac Type Severity Reaction Status Date / Time No Known Allergies Allergy Verified 10/28/24 12:27 Review of Systems Review of Systems Comment: Ten point ROS negative Exam Exam Comment: Gen appear: No acute distress HEENT: no icterus Chest: No overt resp distress Abd: soft, nontender, nondistended Psych: Stable affect, answering questions appropriately Neuro: A/Ox3 noted to move all extremities spontaneously Ext: no peripheral edema Plan Diagnosis/Plan: Unchanged I have reviewed the history and physical and performed a pertinent physical examination on my patient. No changes have occurred unless specified. Time Spent With Patient Time: Total time managing care of this patient today ____ minutes.
[2024-10-28 14:00] VITALS: BP 101/65; PULSE 78; RESP 19; TEMP 36.4; O2SAT 97
--- NOTE | 2024-10-28 14:06 | P.OPN-COLO_ITS ---
Colonoscopy Operative Note Operative Note Date of Service: 10/28/24 Narrative: Procedure: Upper endoscopy and colonoscopy Indication: Anemia Endoscopist: Charlene Olvera MD Anesthesia Provider: Anesthesia type: MAC Instrument: [id number] and [id number] EGD Procedure:?? The procedure, indications, preparation and potential complications were reviewed with the patient, who indicated understanding and gave written informed consent to proceed. The endoscope was introduced through the mouth, and advanced to the 2nd part of the duodenum. The mucosa was carefully examined on slow withdrawal of the endoscope. The patient tolerated the procedure well. There were no immediate complications.? EGD Findings:? * Esophagus:? Normal esophageal mucosa was noted. The Z-line was at 37 cm. * Stomach:? Normal gastric mucosa. Retroflexion was performed in the cardia. Random cold forceps biopsies were taken from the stomach. * Duodenum:? Normal duodenal mucosa. Cold forceps biopsies were taken from the duodenal bulb and 2nd portion of the duodenum to rule out celiac sprue. Colonoscopy Procedure:? The patient was then turned for the colonoscopy. A digital rectal exam was performed which was normal.? A distal attachment cap was affixed to the tip of the scope and the colonoscope was then inserted through the anus and advanced through the colon and advanced to the cecum at 75 cm and terminal ileum.? Appendiceal orifice and ileocecal valve were identified. Mucosa was carefully examined under high definition white light as the instrument was slowly withdrawn in a retrograde panoramic fashion. Retroflexion was performed in rectum. The procedure was not difficult. The quality of the prep was BBPS: 2+3+3= adequate Withdrawal time 9 minutes Limitations: No limitations Findings: Mucosa: Normal colon and terminal ileum mucosa. Protruding lesions: * 1 sessile polyp of size 4 mm in sigmoid colon. Cold snare polypectomy was performed. The polyp was completely removed and retrieved. * Large internal hemorrhoids without stigmata of recent bleeding. Impression: 1. Normal esophagus 2. Normal stomach (biopsy) 3. Normal duodenum (biopsy) 4. Normal colon and terminal ileum mucosa 5. One polyp removed 6. Internal hemorrhoids Recommendations:?? * Follow-up path results * Avoid NSAIDs * H Pylori treatment if biopsies + * Repeat colonoscopy for CRC screening in 7-10 years if the polyp is an adenoma. 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
[2024-10-28 14:15] VITALS: BP 110/72; PULSE 75; RESP 16; O2SAT 100
[2024-10-28 14:30] VITALS: BP 133/80; PULSE 73; RESP 20; TEMP 36.9; O2SAT 100
== END 2024-10-28 15:05 | disposition home or self-care (01) ==
PROVIDERS: PCP Internal Medicine; Visit Provider Internal Medicine
PROC: (CPT 45385; principal; 2024-10-28 13:20)
DX: D64.9 Anemia, unspecified (principal); K51.40 Inflammatory polyps of colon without complications; K64.8 Other hemorrhoids; R10.13 Epigastric pain; K21.9 Gastro-esophageal reflux disease without esophagitis; E55.9 Vitamin D deficiency, unspecified; E53.8 Deficiency of other specified B group vitamins; D75.839 Thrombocytosis, unspecified; G43.009 Migraine without aura, not intractable, without status migrainosus; Z79.82 Long term (current) use of aspirin; Z79.899 Other long term (current) drug therapy
CPT/HCPCS: 45385; 43239; 81025; 88305; 88313; 88342; J2003; J2704

== ENCOUNTER → 2024-10-28 11:38 | Outpatient (BNV) | payer OTHER, MEDICAID, SELFPAY | PROVIDERS: PCP Internal Medicine; Visit Provider Internal Medicine | DX: D64.9 Anemia, unspecified (principal); D12.5 Benign neoplasm of sigmoid colon; K64.8 Other hemorrhoids | CPT/HCPCS: 43239; 45385 ==

== ENCOUNTER 2024-12-16 13:21 | Outpatient (AMB) | payer OTHER, SELFPAY ==
[2024-12-16 13:29] VITALS: BP 130/70; PULSE 76; O2SAT 97; BMI 25.2
--- NOTE | 2024-12-16 13:29 | A.OFFPC_ITS ---
Vital Signs 12/16/24 13:29 Height 5 ft 3 in Weight 142 lb BMI 25.2 BP 130/70 Blood Pressure Location Rt brachial Position Sitting Pulse 76 Pulse Source Pulse Oximeter Pulse Oximetry (%) 97 Intake Visit Reasons: Annual PE/INACTIVE INS CHECK WITH OA Allergies No Known Allergies Allergy (Verified 12/16/24 13:29) Medication List - Last Reconciled 12/16/24 by Cayla Rivera MD benzoyl peroxide 10% 1 appl topical DAILY cholecalciferol (vitamin D3) (Vitamin D3) 25 mcg PO DAILY clindamycin phosphate 1% 1 appl topical BID cyanocobalamin (vitamin B-12) 1,000 mcg PO DAILY 90 days escitalopram oxalate 5 mg PO DAILY ferrous sulfate 324 mg PO BID 90 days ketoconazole 2% 1 appl topical DAILY minoxidil 2.5 mg PO DAILY naproxen 500 mg PO BID pantoprazole 40 mg PO BEDTIME 90 days Tobacco use date assessed: 05/26/24 Dental Screening Dental Screen Date: 05/26/24 HPI Annual PE/INACTIVE INS CHECK WITH OA HPI Details Physical exam appointment The patient is a 34-year-old female presenting with recurrent stomach pain. Gastroesophageal Reflux Disease (GERD): - Recurrent stomach pain primarily locat ed in the epigastric of the abdomen, noted to have occurred last night. - Pain described as coming and going thr oughout the night. - Last episode occurred after consuming a burger approximately two hours before bedtime. - Pain was alleviated after taking two d oses of Tylenol. - Patient reports occasional acid reflux symptoms. - Current status: No pain at the moment, but history of prior episodes. - Previous recommendation for pantoprazo le, but non-adherence due to recent vacation. Myalgia (Trapezius Muscle Pain): - Pain localized in the right trapezius muscle area. - History of overuse likely due to repea fermín movements and cleaning tasks at work. - Patient reports that the pain has been recurring, particularly when performing repetitive tasks. - Had physical therapy through occupatio nal therapy at work but continues to experience symptoms. - Current status: Persistent complaints of muscle pain despite prior therapy. 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 - Does not smoke or consume alcohol. - Recent dietary intake includes consump tion of fast food (e.g., burger before bedtime). - Taking time off work for a vacation re sulted in temporary cessation of some medications. Family History: - Both paternal and maternal sides had a history of heart attacks, with both parents at ages 75 and 76. Health Maintenance - Due for tetanus vaccination; instructe d to obtain it from a pharmacy due to unavailability in the office. - Last cholesterol check one year ago sh owed LDL of 136. - Upcoming pelvic ultrasound and gastroe nterology follow-up in February. - Prior labs performed in August; planned r eassessment of cholesterol in March or April. Medications - Vitamin D3 for vitamin supplementation - Vitamin B12 for vitamin supplementatio n - Lexapro (Escitalopram) 5 mg for anxiet y (currently stopped by patient) - Iron supplement - Pantoprazole for gastroesophageal refl ux disease (non-adherent for two weeks) - Minoxidil for hair regrowth Patient Instructions - Take Tums for instances of reflux pain . - Obtain tetanus vaccine from a pharmacy due to office shortage. - Follow through with both the upcoming pelvic ultrasound and gastroenterology appointment in February. - Continue taking daily doses of Vitamin D3, Vitamin B12, iron, and Minoxidil as prescribed. - Restart Lexapro if anxiety symptoms re turn and consult for further management as needed. - Continue exercising arm and shoulder m uscles cautiously to avoid exacerbating trapezius muscle pain. Follow-up six-month, labs are needed fasting before visit, physical exam 1 year Review of Systems - General: No fever no chills - Neurological: No headaches no dizzin ess - Ear nose throat: No sore throat no hearing difficulty no ear pain - Cardiovascular: No syncope, no chest pain, no palpitations - Gastrointestinal: No nausea vomiting or diarrhea - Endocrine: No polyuria polydipsia no heat intolerance - Genitourinary: No dysuria - Skin: No new complaints Physical Exam General: Cooperative, healthy appearing, comfortable, no acute distress Orientation: Patient oriented x3 Head: Normal to inspection Ears: Within normal limit visually Nose: Normal external nose present Face and sinus: Normal facial exam Eyes: Appearance normal, extraocular movement intact pupils reactive Neck: Normal visual inspection and supple Respiratory: Normal respiratory effort and able to speak in complete sentences. Clear to auscultation, no stridor Cardiovascular: S1 and S2 RRR Breast exam benign GI: Normal to inspection. Soft to palpation and nontender Skin: Turgor normal, no acute findings Neuro: Patient oriented x3, motor sensory intact, balance intact, tandem pass Extremities: Normal to inspection, no swelling noted in toes, shoulders, or elbows. . [facility] Medical History Trigeminal neuralgia of right side of face Thrombocytosis GERD (gastroesophageal reflux disease) Anemia Migraine without aura Vitamin D deficiency B12 deficiency Surgical History No pertinent past surgical history Family History Father CVD (cardiovascular disease) Mother No problems noted. Maternal Grandfather Diabetes mellitus Maternal Grandmother Diabetes mellitus Paternal Grandfather Diabetes mellitus Paternal Grandmother Diabetes mellitus Other No family history of cancer Social History Household Members: Spouse and Children Housing: House Are you a primary tire care manager to a significant other at home: No Do you presently have visiting nurse or other home services: No Alcohol intake: never Patient Tobacco Use Status: Never used Tobacco e-Cigarette/Vaping Use: Never Used service: No Current occupational status: employed Cognitive needs: No Hearing needs: No Vision needs: No Female Reproductive History Menstrual Age of Menarche: 9 Questionnaire Thrive Questionnaire Date Thrive assessed: 05/06/24 I am a: Patient What is your living situation today?: I have a steady place to live Within the past 12 months, did the food you bought not last and you didn't have the money to get more?: I choose not to answer this question Within the past 12 months, did you worry whether your food would run out before you got money to buy more?: I choose not to answer this question Do you have trouble paying for medicines?: No Do you have trouble getting transportation to medical appointments?: No Do you have trouble paying your heating and electricity bill?: No Do you have trouble taking care of your child, family member or friend?: No Do you have trouble with day-to-day activities such as bathing, preparing meals, shopping, managing finances, etc.?: No Are you currently unemployed and looking for a job?: No Are you interested in more education?: No Please select the resources that you would like help with: None Currently or been in a relationship where the following occur: I choose not to answer THRIVE Score: 0 FOREIGN-7 AMB Questionnaire FOREIGN-7 Date FOREIGN - 7 assessed: 05/06/24 Source: Developed by Drs. Timothy Lloyd, Laney Ross, Ran Buckley and colleagues, with an educational izaiah from [employer]. Physical exam (Primary Care) Vital Signs: Last Vital Signs Pulse 76 12/16/24 13:29 BP 130/70 12/16/24 13:29 Pulse Ox 97 12/16/24 13:29 BMI result Body Mass Index 25.2 Tobacco/Smoking Status: Tobacco use Status Tobacco use date assessed 05/26/24 12/16/24 13:33 Patient Tobacco Use Status Never used Tobacco 12/16/24 13:33 e-Cigarette/Vaping Use Never Used 12/16/24 13:33 Thrive Assessment: Date of Thrive Assessment Date Thrive assessed 05/06/24 12/16/24 13:33 Currently or been in a relationship where the following occur: I choose not to answer Coding Level of Care Code Est Pt Level 3 (89306) Est Pt Prev Care 18-39y(61787) Diagnoses Encounter for general adult medical examination with abnormal findings Z00.01 Paresthesia of both feet R20.2 Migraine without status migrainosus, not intractable, unspecified migraine type G43.909 Intractability: not intractable Migraine type: unspecified Status migrainosus presence: without status migrainosus Microcytic hypochromic anemia D50.9 Gastroesophageal reflux disease without esophagitis K21.9 Esophagitis presence: without esophagitis B12 deficiency E53.8 Vitamin D deficiency E55.9 Anxiety, generalized F41.1 Assessment & Plan Assessment & Plan (1) Encounter for general adult medical examination with abnormal findings: Code(s): Z00.01 - Encounter for general adult medical examination with abnormal findings Category: Medical (2) Paresthesia of both feet: Comment: Improved with B12 supplement Code(s): R20.2 - Paresthesia of skin Category: Medical (3) Migraine headache: Comment: Stable Code(s): G43.909 - Migraine, unspecified, not intractable, without status migrainosus Category: Medical Qualifiers: Intractability: not intractable Migraine type: unspecified Status migrainosus presence: without status migrainosus Qualified Code(s): G43.909 - Migraine, unspecified, not intractable, without status migrainosus (4) Microcytic hypochromic anemia: Comment: Improved with the iron supplement Code(s): D50.9 - Iron deficiency anemia, unspecified Category: Medical (5) Acid reflux: Comment: Treatment through Dr. [facility] Code(s): K21.9 - Gastro-esophageal reflux disease without esophagitis Category: Medical Qualifiers: Esophagitis presence: without esophagitis Qualified Code(s): K21.9 - Gastro-esophageal reflux disease without esophagitis (6) B12 deficiency: Code(s): E53.8 - Deficiency of other specified B group vitamins Category: Medical (7) Vitamin D deficiency: Code(s): E55.9 - Vitamin D deficiency, unspecified Category: Medical (8) Anxiety, generalized: Comment: Stable, patient stopped escitalopram 5 mg 8 01/07/2025 Code(s): F41.1 - Generalized anxiety disorder Category: Medical Plan Physical exam appointment The patient is a 34-year-old female presenting with recurrent stomach pain. Gastroesophageal Reflux Disease (GERD): - Recurrent stomach pain primarily located in the epigastric of the abdomen, noted to have occurred last night. - Pain described as coming and going throughout the night. - Last episode occurred after consuming a burger approximately two hours before bedtime. - Pain was alleviated after taking two doses of Tylenol. - Patient reports occasional acid reflux symptoms. - Current status: No pain at the moment, but history of prior episodes. - Previous recommendation for pantoprazole, but non-adherence due to recent vacation. Myalgia (Trapezius Muscle Pain): - Pain localized in the right trapezius muscle area. - History of overuse likely due to repeated movements and cleaning tasks at work. - Patient reports that the pain has been recurring, particularly when performing repetitive tasks. - Had physical therapy through occupational therapy at work but continues to experience symptoms. - Current status: Persistent complaints of muscle pain despite prior therapy. 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 - Does not smoke or consume alcohol. - Recent dietary intake includes consumption of fast food (e.g., burger before bedtime). - Taking time off work for a vacation resulted in temporary cessation of some medications. Family History: - Both paternal and maternal sides had a history of heart attacks, with both parents at ages 75 and 76. Health Maintenance - Due for tetanus vaccination; instructed to obtain it from a pharmacy due to unavailability in the office. - Last cholesterol check one year ago showed LDL of 136. - Upcoming pelvic ultrasound and gastroenterology follow-up in February. - Prior labs performed in August; planned reassessment of cholesterol in March or April. Medications - Vitamin D3 for vitamin supplementation - Vitamin B12 for vitamin supplementation - Lexapro (Escitalopram) 5 mg for anxiety (currently stopped by patient) - Iron supplement - Pantoprazole for gastroesophageal reflux disease (non-adherent for two weeks) - Minoxidil for hair regrowth Patient Instructions - Take Tums for instances of reflux pain. - Obtain tetanus vaccine from a pharmacy due to office shortage. - Follow through with both the upcoming pelvic ultrasound and gastroenterology appointment in February. - Continue taking daily doses of Vitamin D3, Vitamin B12, iron, and Minoxidil as prescribed. - Restart Lexapro if anxiety symptoms return and consult for further management as needed. - Continue exercising arm and shoulder muscles cautiously to avoid exacerbating trapezius muscle pain. Follow-up six-month, labs are needed fasting before visit, physical exam 1 year Orders: Orders Comprehensive [place]. Panel Fast Today D50.9 - Iron deficiency anemia, unspecified, E53.8 - Deficiency of other specified B group vitamins, E55.9 - Vitamin D deficiency, unspecified, F41.1 - Generalized anxiety disorder, G43.909 - Migraine, unspecified, not intractable, without status migrainosus, K21.9 - Gastro-esophageal reflux disease without esophagitis, R20.2 - Paresthesia of skin, R79.89 - Other specified abnormal findings of blood chemistry, Z00.01 - Encounter for general adult medical examination with abnormal findings Vitamin D 25-OH (D2 and D3) Today D50.9 - Iron deficiency anemia, unspecified, E53.8 - Deficiency of other specified B group vitamins, E55.9 - Vitamin D deficiency, unspecified, F41.1 - Generalized anxiety disorder, G43.909 - Migraine, unspecified, not intractable, without status migrainosus, K21.9 - Gastro-esophageal reflux disease without esophagitis, R20.2 - Paresthesia of skin, R79.89 - Other specified abnormal findings of blood chemistry, Z00.01 - Encounter for general adult medical examination with abnormal findings Ferritin Today D50.9 - Iron deficiency anemia, unspecified, E53.8 - Deficiency of other specified B group vitamins, E55.9 - Vitamin D deficiency, unspecified, F41.1 - Generalized anxiety disorder, G43.909 - Migraine, unspecified, not intractable, without status migrainosus, K21.9 - Gastro-esophageal reflux disease without esophagitis, R20.2 - Paresthesia of skin, R79.89 - Other specified abnormal findings of blood chemistry, Z00.01 - Encounter for general adult medical examination with abnormal findings TSH reflex Free T4 Today D50.9 - Iron deficiency anemia, unspecified, E53.8 - Deficiency of other specified B group vitamins, E55.9 - Vitamin D deficiency, unspecified, F41.1 - Generalized anxiety disorder, G43.909 - Migraine, unspecified, not intractable, without status migrainosus, K21.9 - Gastro- esophageal reflux disease without esophagitis, R20.2 - Paresthesia of skin, R79.89 - Other specified abnormal findings of blood chemistry, Z00.01 - Encounter for general adult medical examination with abnormal findings Complete Blood Count Auto Diff Today D50.9 - Iron deficiency anemia, unspecified, E53.8 - Deficiency of other specified B group vitamins, E55.9 - Vitamin D deficiency, unspecified, F41.1 - Generalized anxiety disorder, G43.909 - Migraine, unspecified, not intractable, without status migrainosus, K21.9 - Gastro-esophageal reflux disease without esophagitis, R20.2 - Paresthesia of skin, R79.89 - Other specified abnormal findings of blood chemistry, Z00.01 - Encounter for general adult medical examination with abnormal findings Lipid Panel Today D50.9 - Iron deficiency anemia, unspecified, E53.8 - Deficiency of other specified B group vitamins, E55.9 - Vitamin D deficiency, unspecified, F41.1 - Generalized anxiety disorder, G43.909 - Migraine, unspecified, not intractable, without status migrainosus, K21.9 - Gastro-eso phageal reflux disease without esophagitis, R20.2 - Paresthesia of skin, R79.89 - Other specified abnormal findings of blood chemistry, Z00.01 - Encounter for general adult medical examination with abnormal findings Vitamin B12 Today D50.9 - Iron deficiency anemia, unspecified, E53.8 - Deficiency of other specified B group vitamins, E55.9 - Vitamin D deficiency, unspecified, F41.1 - Generalized anxiety disorder, G43.909 - Migraine, unspecified, not intractable, without status migrainosus, K21.9 - Gastro- esophageal reflux disease without esophagitis, R20.2 - Paresthesia of skin, R79.89 - Other specified abnormal findings of blood chemistry, Z00.01 - Encounter for general adult medical examination with abnormal findings Intrinsic Factor Antibodies Today D50.9 - Iron deficiency anemia, unspecified, E53.8 - Deficiency of other specified B group vitamins, E55.9 - Vitamin D deficiency, unspecified, F41.1 - Generalized anxiety disorder, G43.909 - Migraine, unspecified, not intractable, without status migrainosus, K21.9 - Gastro-esophageal reflux disease without esophagitis, R20.2 - Paresthesia of skin, R79.89 - Other specified abnormal findings of blood chemistry, Z00.01 - Encounter for general adult medical examination with abnormal findings Medications: New cholecalciferol (vitamin D3) (Vitamin D3) 25 mcg PO DAILY 90 tabs 1RF minoxidil 2.5 mg PO DAILY 90 tabs 1RF Refilled cyanocobalamin (vitamin B-12) 1,000 mcg PO DAILY 90 tabs 3RF 90 days ferrous sulfate 324 mg PO BID 180 tabs 0RF 90 days Discontinued escitalopram oxalate Discontinued Reason: Doctor's Order 5 mg PO DAILY 90 tabs 0RF
--- OUTSIDE RECORDS SUMMARY | 2024-12-16 13:35 | XMS_ITS | Clinical Summary ---
Author Organization [facility] ity Address [address] [place] [address] Care Team Providers Care Clean Energy Policy Analyst Name Role Phone Unavailable Primary Care Provider [...] Cervical Cancer Screening: P ap Smear 2010 HIV Screening 03/18/2022 Hepatitis C Screening 03/18/2022 Social Influencers of Health Screening 03/18/2022 COVID-19 Vaccine ( - 2023-2 5 season) 2023 Depression Screening 04/20/2024 Influenza Vaccine (#1) 2024 HIB Vaccines Aged Out No longer [...] 5 Years) and At-Risk Patients (6 to 49 Years) Aged Out No longer eligible b ased on patient's age to complete this topic RSV Immunization Patients Un cathy 20 months Aged Out No longer eligible b ased on patient's age to complete this topic Varicella Vaccines Aged Out No longer eligible based on patient's age to complete this topic
== END 2024-12-16 14:19 | disposition home or self-care (01) ==
PROVIDERS: PCP Internal Medicine; Visit Provider Internal Medicine
DX: Z00.01 Encounter for general adult medical examination with abnormal findings (principal); R20.2 Paresthesia of skin; G43.909 Migraine, unspecified, not intractable, without status migrainosus; D50.9 Iron deficiency anemia, unspecified; K21.9 Gastro-esophageal reflux disease without esophagitis; E53.8 Deficiency of other specified B group vitamins; E55.9 Vitamin D deficiency, unspecified; F41.1 Generalized anxiety disorder

== ENCOUNTER 2025-01-13 12:51 | Outpatient (AMB) | payer OTHER, SELFPAY ==
[2025-01-13 12:52] VITALS: BP 114/70; PULSE 85; RESP 16; TEMP 36.7; O2SAT 99; BMI 24.6
--- NOTE | 2025-01-13 12:52 | AM.OFFWIN_ITS ---
Intake Vital Signs 01/13/25 12:52 Height 5 ft 3 in Weight 139 lb BMI 24.6 BP 114/70 Blood Pressure Location Rt brachial Position Sitting Respiration 16 Pulse 85 Pulse Source Pulse Oximeter Temp 98.1 F Temp Source Oral Pulse Oximetry (%) 99 Oxygen Delivery Method Room Air Intake Visit Reasons: EP Vaginal Itching Patient Tobacco Use Status: Never used Tobacco Green Plumber Required: No Accompanied by: Self / Same As Patient Allergies No Known Allergies Allergy (Verified 01/13/25 12:53) HPI EP Vaginal Itching HPI Details 34-year-old female patient presents to [facility] walk[facility] today with a one-week history of vaginal itching and abnormal discharge. Reports a thick white/chunky discharge that has a mild odor. Denies any urinary symptoms. Denies any fever/chills. Denies any new sexual partners or risk for STI. [facility] Medical History Trigeminal neuralgia of right side of face Thrombocytosis GERD (gastroesophageal reflux disease) Anemia Migraine without aura Vitamin D deficiency B12 deficiency Surgical History No pertinent past surgical history Family History Father CVD (cardiovascular disease) Mother No problems noted. Maternal Grandfather Diabetes mellitus Maternal Grandmother Diabetes mellitus Paternal Grandfather Diabetes mellitus Paternal Grandmother Diabetes mellitus Other No family history of cancer Social History Household Members: Spouse and Children Housing: House Are you a primary emergency care attendant to a significant other at home: No Do you presently have visiting nurse or other home services: No Alcohol intake: never Patient Tobacco Use Status: Never used Tobacco e-Cigarette/Vaping Use: Never Used service: No Current occupational status: employed Cognitive needs: No Hearing needs: No Vision needs: No Female Reproductive History Menstrual Age of Menarche: 9 Review of Systems Const All systems reviewed & are unremarkable except as noted in HPI and below Physical Exam Vital Signs: Last Vital Signs Temp 98.1 F 01/13/25 12:52 Pulse 85 01/13/25 12:52 Resp 16 01/13/25 12:52 BP 114/70 01/13/25 12:52 Pulse Ox 99 01/13/25 12:52 Oxygen Delivery Method Room Air 01/13/25 12:52 BMI result Body Mass Index 24.6 Const General: cooperative, healthy appearing, comfortable and no acute distress Resp Effort & Inspection: normal respiratory effort General: Yes no CVA tenderness Back/Spine/Pelvis Back: no CVA tenderness Skin General skin exam: no rashes or lesions noted Extrem General: Yes no clubbing, cyanosis or edema Psych Appearance: grossly normal Mental Status: mental status grossly normal Speech and movement: Normal speech and movement present Assessment & Plan Assessment & Plan (1) Vaginal itching: Code(s): N89.8 - Other specified noninflammatory disorders of vagina Plan: Symptoms consistent with vaginal yeast infection. Will send fluconazole p.o. Reviewed indications, use, possible side effects of medication. BV swab also obtained today and will be sent to lab. Patient aware she will be notified of results once these are available, and she is aware she will potentially need medication change/antibiotics if indicated. Reviewed vaginal hygiene to avoid future infection. If she does not improve with treatment, she can return to the clinic for further evaluation. She verbalizes understanding and agrees to plan. Orders: Orders Bacterial Vaginosis Panel Today N89.8 - Other specified noninflammatory disorders of vagina Coding Level of Care Code Est Pt Level 4 (71317) Diagnoses Vaginal itching N89.8
--- OUTSIDE RECORDS SUMMARY | 2025-01-13 14:13 | XMS_ITS | Clinical Summary ---
Author Organization [facility] ity Address [address] [place] [address] Care Team Providers Care Rn Medical Inpatient Services Name Role Phone Unavailable Primary Care Provider [...] Screening: P ap Smear 2010 Depression Screening 04/20/2024 COVID-19 Vaccine ( - 2023-2 5 season) 2024 Influenza Vaccine (#1) 2024 HIB Vaccines Aged [...]
== END 2025-01-13 13:25 | disposition home or self-care (01) ==
PROVIDERS: PCP Internal Medicine; Visit Provider Nurse Practitioner Family
DX: N89.8 Other specified noninflammatory disorders of vagina (principal)

== ENCOUNTER 2025-01-13 12:51 | Outpatient (REF) | payer OTHER, SELFPAY ==
[2025-01-14 12:48] LABS: Bacterial Vaginosis PCR NEGATIVE (Negative); Candida Group PCR NOT DETECTED (Not Detect); Candida glab krusei PCR DETECTED (Not Detect); Trichomonas vaginalis PCR NOT DETECTED (Not Detect)
== END 2025-01-13 12:52 | disposition home or self-care (01) ==
LOC: HO.LNP 12:51
PROVIDERS: PCP Internal Medicine; Visit Provider Nurse Practitioner Family
DX: N89.8 Other specified noninflammatory disorders of vagina (principal); Z20.2 Contact with and (suspected) exposure to infections with a predominantly sexual mode of transmission
CPT/HCPCS: 81515

== ENCOUNTER 2025-02-24 09:48 | Outpatient (AMB) | payer OTHER, MEDICAID, SELFPAY ==
--- NOTE | 2025-02-24 09:50 | A.OFFVIS_ITS ---
Vital Signs 02/24/25 09:54 Height 5 ft 3 in Weight 144 lb BMI 25.5 BP 116/74 Intake Visit Reasons: U/S follow up Intake Note: Patient still experiencing left sided pelvic pain 2 weeks before her period, pain still lingering after period. Renal Social Worker: Renal Social Worker Present (Leta) Accompanied by: Self / Same As Patient Allergies No Known Allergies Allergy (Verified 02/24/25 09:54) Medication List - Last Reconciled 02/24/25 by Petra Shelton CNM benzoyl peroxide 10% 1 appl topical DAILY cholecalciferol (vitamin D3) (Vitamin D3) 25 mcg PO DAILY clindamycin phosphate 1% 1 appl topical BID cyanocobalamin (vitamin B-12) 1,000 mcg PO DAILY 90 days ferrous sulfate 324 mg PO BID 90 days fluconazole 150 mg PO Q3D ketoconazole 2% 1 appl topical DAILY minoxidil 2.5 mg PO DAILY pantoprazole 40 mg PO BEDTIME 90 days Post menopausal: No Patient : No HPI HPI U/S follow up: Details: Patient is here to discuss an ultrasound she had last July for pelvic pain that was predominantly on the left side. She still gets this pain it is the worst the week before her. It lingers on a little bit during her. And then a little bit afterwards as well. She no longer can take ibuprofen because it was bothering her stomach in her doctor told her to stop. She had previously discussed hormonal therapy such as a Mirena or control pills but she is afraid of any of those options and does not want to go there yet. She uses condoms for control and she is very much afraid of having another her children are growing up already. She is currently not interested in a hormonal method of control though. Discussed everything throughout this visit in terms of her pain pattern and what has been reviewed so far she opted to have a repeat ultrasound and we will aim to have it done the week before her. So I asked her to be proactive in the scheduling with that. We will have a visit closer to the ultrasound date to review the findings and see what options are from there. [facility] Medical History Trigeminal neuralgia of right side of face Thrombocytosis GERD (gastroesophageal reflux disease) Anemia Migraine without aura Vitamin D deficiency B12 deficiency Surgical History No pertinent past surgical history Family History Father CVD (cardiovascular disease) Mother No problems noted. Maternal Grandfather Diabetes mellitus Maternal Grandmother Diabetes mellitus Paternal Grandfather Diabetes mellitus Paternal Grandmother Diabetes mellitus Other No family history of cancer Social History Household Members: Spouse and Children Housing: House Are you a primary rn home care to a significant other at home: No Do you presently have visiting nurse or other home services: No Alcohol intake: never Patient Tobacco Use Status: Never used Tobacco e-Cigarette/Vaping Use: Never Used Patient : No service: No Current occupational status: employed Cognitive needs: No Hearing needs: No Vision needs: No Female Reproductive History Menstrual Age of Menarche: 9 Duration of menses: 3-5 days Date of last menstrual period: 02/18/25 control method: none Total pregnancies: 2 Full term: 2 Date of last pap smear: 07/08/24 (negative pap smear,negative hpv ) Physical Exam Vital Signs: Last Vital Signs BP 116/74 02/24/25 09:54 BMI result Body Mass Index 25.5 Results Reviewed Results Reviewed: Patient: Luis Linn MR#: [id number] : 1990 Acct:[id number] Age/Sex: 34 / F ADM Date: 08/09/24 Loc: HO.US Attending Dr: Petra Shelton CNM Ordering Physician: Petra Shelton CNM Date of Service: 08/09/24 Procedure(s): US pelvic and transvaginal Accession Number(s): [id number] cc: Cayla Rivera MD; Petra Shelton CNM~ ADDENDUM ADDENDUM #1 Discussed with Petra Shelton CNM on August 18, 2024. Recommend a short-term follow-up 3-6 month. Electronically signed by: Jarocho Raymond MD 08/18/2024 12:40 PM EDT Addendum Dictated By: Jarocho Brower MD Addendum Signed By: <Electronically signed by Jarocho Brower MD in OV> 08/18/24 1240 Addendum Cosigned By: DD/ TD/TT: 08/09/24 EXAMINATION: US PELVIS CLINICAL INFORMATION: Encounter for other general counseling and advise on contraceptive. COMPARISON: None available. TECHNIQUE: Ultrasound of the pelvis is performed using both transabdominal and transvaginal transducers along with Doppler. Transvaginal imaging is performed due to inadequate visualization transabdominally. FINDINGS: Uterus: The uterus is in retroversion flexion position and measures 8 x 4 x 6 cm. Volume: 103 cc. The double wall endometrial thickness is 4 mm. The uterus is smooth in contour and has normal myometrial echogenicity. No visible fibroid. Adnexa: Both ovaries are visualized. There is normal color flow to the adnexa. There is no ovarian torsion. There is no pelvic ascites or fluid collection. Right ovary measures 3 x 2 x 2 cm. Volume: 5 cc. Scattered follicles. Left ovary measures 3 x 2 x 2 cm. Volume: 4 cc. There is an 8 mm hyperechoic lesion without flow on color Doppler interrogation. US/US pelvic and transvaginal IMPRESSION: Normal uterus is in retroversion flexion position which could be seen patients with endometriosis. No ovarian torsion. Questionable 8 mm lipoma versus hemorrhagic cyst, left ovary. Electronically signed by: Jarocho Raymond MD 08/10/2024 08:39 AM EDT Dictated By: Jarocho Raymundo MD Signed By: <Electronically signed by Jarocho Brower MD in OV> 08/10/24 0839 DD/ 34 TD/TT: 08/09/24 1154 Tr Assessment & Plan Assessment & Plan (1) Pelvic pain: Comment: Worsened midcycle and has continued to start of this menses today, consistent with ovulatory function, we will await ultrasound and review w patient; ultrasound is done see details and will follow up with the patient on 08/26. Will order follow-up 3 to six-month ultrasound.; 02/24/25 pain is still recurring especially the week before her period and then during her period and still lingers after especially left side it initiated during her last which she aborted at 2 months will repeat ultrasound aiming for the week before her menses and have closer follow-up after. Code(s): R10.2 - Pelvic and perineal pain Category: Medical Plan Patient is here to discuss an ultrasound she had last July for pelvic pain that was predominantly on the left side. She still gets this pain it is the worst the week before her. It lingers on a little bit during her. And then a little bit afterwards as well. She no longer can take ibuprofen because it was bothering her stomach in her doctor told her to stop. She had previously discussed hormonal therapy such as a Mirena or control pills but she is afraid of any of those options and does not want to go there yet. She uses condoms for control and she is very much afraid of having another her children are growing up already. She is currently not interested in a hormonal method of control though. Discussed everything throughout this visit in terms of her pain pattern and what has been reviewed so far she opted to have a repeat ultrasound and we will aim to have it done the week before her. So I asked her to be proactive in the scheduling with that. We will have a visit closer to the ultrasound date to review the findings and see what options are from there. Orders: Orders US pelvic and transvaginal Today R10.2 - Pelvic and perineal pain Coding Level of Care Code Est Pt Level 3 (62491) Diagnoses Pelvic pain R10.2
[2025-02-24 09:54] VITALS: BP 116/74; BMI 25.5
--- OUTSIDE RECORDS SUMMARY | 2025-02-24 11:15 | XMS_ITS | Clinical Summary ---
Author Organization [facility] it Address [address] [place] [address] Care Team Providers Care Jewel Sorter Name Role Phone Unavailable Primary Care Provider [...] Cervical Cancer Screening: P ap Smear 2010 HPV Vaccines (1 - 3-dose SCD M series) 02/28/2016 Depression Screening 04/20/2024 COVID-19 Vaccine ( - 2023-2 5 season) 2024 Influenza Vaccine (#1) 2024 RSV Immunization Adult Patie nts (1 - 1-dose 75+ series) 02/28/2064 HIB Vaccines Aged Out No longer eligi [...]
== END 2025-02-24 10:47 | disposition home or self-care (01) ==
LOC: HO.HWS 09:49
PROVIDERS: PCP Internal Medicine; Visit Provider Advanced Practice Midwife
DX: R10.20 Pelvic and perineal pain unspecified side (principal)
CPT/HCPCS: 99213

== ENCOUNTER 2025-03-31 09:09 | Outpatient (REF) | payer OTHER, MEDICAID, SELFPAY ==
--- NOTE | ~2025-03-31 | XR_ITS ---
EXAMINATION: XR LUMBOSACRAL SPINE CLINICAL INFORMATION: Low back LT SI region pain w/ radiation to thigh COMPARISON: September 06, 2022 TECHNIQUE: AP and lateral views FINDINGS: No acute cortical disruption or malalignment. No lytic or blastic lesions. Loss of the physiologic lumbar lordosis. XR/XR sacroiliac joint 1-2V IMPRESSION: No acute fracture or listhesis . Loss of physiologic lordosis which could be positional versus muscle spasm. EXAMINATION: XR SACROILIAC JOINTS CLINICAL INFORMATION: Low back LT SI region pain w/ radiation to thigh COMPARISON: None available. TECHNIQUE: AP and oblique views of the sacroiliac joints FINDINGS: No acute cortical disruption or malalignment. No lytic or blastic lesions. No metallic or radiopaque foreign body. IMPRESSION: Normal sacroiliac joints. Electronically signed by: Jarocho Raymond MD 03/31/2025 09:38 AM [place]
--- NOTE | ~2025-03-31 | XR_ITS ---
EXAMINATION: XR LUMBOSACRAL SPINE CLINICAL INFORMATION: Low back LT SI region pain w/ radiation to thigh COMPARISON: September 06, 2022 TECHNIQUE: AP and lateral views FINDINGS: No acute cortical disruption or malalignment. No lytic or blastic lesions. Loss of the physiologic lumbar lordosis. XR/XR lumbar spine 2-3V IMPRESSION: No acute fracture or listhesis . Loss of physiologic lordosis which could be positional versus muscle spasm. EXAMINATION: XR SACROILIAC JOINTS CLINICAL INFORMATION: Low back LT SI region pain w/ radiation to thigh COMPARISON: None available. TECHNIQUE: AP and oblique views of the sacroiliac joints FINDINGS: No acute cortical disruption or malalignment. No lytic or blastic lesions. No metallic or radiopaque foreign body. IMPRESSION: Normal sacroiliac joints. Electronically signed by: Jarocho Raymond MD 03/31/2025 09:38 AM [place]
[2025-03-31 13:54] LABS: MANUAL DIFF FLAG NO
[2025-03-31 14:00] LABS: Hematocrit 35.0 % (37.0-47.0); Hemoglobin 10.9 g/dl (12.0-16.0); Imm Gran Abs Auto 0.01 X10*3/uL (0.00-0.03); Imm Gran Pct Auto 0.2 % (0.0-0.4); Lymphocytes Absolute Auto 1.6 X10*3/uL (1.2-4.9); Mean Corpuscular HGB Conc 31.1 g/dl (31.0-35.0); Mean Corpuscular Hemoglobin 24.7 pg (27.0-33.0); Mean Corpuscular Volume 79.4 fL (80.0-98.0); NRBC Abs Auto 0.000 X10*3/uL (0.0-0.012); NRBC Pct Auto 0.0 /100WBC (0.0-0.2); Platelet Count 497 X10*3/uL (160-400); Red Blood Count 4.41 X10*6/uL (4.20-5.50); White Blood Count 4.1 X10*3/uL (4.8-10.8)
[2025-03-31 14:44] LABS: Alanine Aminotransferase 38 U/L (0-31); Albumin Level 4.7 g/dL (3.5-5.0); Alkaline Phosphatase 95 U/L (39-117); Anion Gap 9 (12-20); Aspartate Amino Transferase 33 U/L (5-31); Blood Urea Nitrogen 10 mg/dL (9-16); Calcium 9.5 mg/dL (8.4-10.2); Carbon Dioxide 27 mmol/L (22-29); Chloride 106 mmol/L (96-108); Cholesterol 209 mg/dL (<200); Estimated Glomerular Filt Rate > 60; HDL Cholesterol 47 mg/dL (>40); Potassium 4.2 mmol/L (3.3-5.1); Sodium 138 mmol/L (135-145); Total Protein 7.6 g/dL (6.5-8.0); Triglycerides 88 mg/dL (<150)
[2025-03-31 14:53] LABS: Ferritin 60 ng/mL (10-122)
[2025-03-31 15:06] LABS: Vitamin B12 395 pg/mL (200-900)
== END 2025-03-31 09:10 | disposition home or self-care (01) ==
LOC: HO.HMGCX 09:09
PROVIDERS: Absent Provider Nurse Practitioner Family; PCP Internal Medicine; Visit Provider Internal Medicine
DX: Z00.00 Encounter for general adult medical examination without abnormal findings (principal); R10.20 Pelvic and perineal pain unspecified side; R10.32 Left lower quadrant pain; D50.9 Iron deficiency anemia, unspecified; K64.4 Residual hemorrhoidal skin tags; K59.01 Slow transit constipation; K59.03 Drug induced constipation; T40.2X5A Adverse effect of other opioids, initial encounter; M54.50 Low back pain, unspecified; M53.3 Sacrococcygeal disorders, not elsewhere classified; R20.2 Paresthesia of skin; G43.909 Migraine, unspecified, not intractable, without status migrainosus; K21.9 Gastro-esophageal reflux disease without esophagitis; R79.89 Other specified abnormal findings of blood chemistry; E53.8 Deficiency of other specified B group vitamins; E55.9 Vitamin D deficiency, unspecified; F41.1 Generalized anxiety disorder
CPT/HCPCS: 36415; 72100; 72200; 80053; 80061; 82306; 82607; 82728; 84443; 85025

== ENCOUNTER → 2025-03-31 09:14 | Outpatient (BNV) | payer OTHER, MEDICAID, SELFPAY | PROVIDERS: Absent Provider Nurse Practitioner Family; PCP Internal Medicine; Visit Provider Radiology Diagnostic Radiology | DX: M54.50 Low back pain, unspecified (principal); M53.3 Sacrococcygeal disorders, not elsewhere classified | CPT/HCPCS: 72100; 72200 ==

== ENCOUNTER 2025-03-31 10:02 | Outpatient (AMB) | payer OTHER, MEDICAID, SELFPAY ==
[2025-03-31 10:10] VITALS: BP 110/70; PULSE 81; O2SAT 100; BMI 26.1
--- NOTE | 2025-03-31 10:10 | AM.OFFWIN_ITS ---
Intake Vital Signs 03/31/25 10:10 Height 5 ft 3 in Weight 147 lb 6 oz BMI 26.1 BP 110/70 Blood Pressure Location Rt brachial Position Sitting Pulse 81 Pulse Source Pulse Oximeter Pulse Oximetry (%) 100 Oxygen Delivery Method Room Air Intake Visit Reasons: EP-lt hip pain Patient Tobacco Use Status: Never used Tobacco Allergies No Known Allergies Allergy (Verified 03/31/25 10:10) Medication List - Last Reconciled 03/31/25 by Cayla Rivera MD ascorbic acid (vitamin C) (Vitamin C) 500 mg PO DAILY cholecalciferol (vitamin D3) (Vitamin D3) 25 mcg PO DAILY cyanocobalamin (vitamin B-12) 1,000 mcg PO DAILY 90 days ferrous sulfate 325 mg PO USEASDIRECTD folic acid 1 mg PO DAILY pantoprazole 40 mg PO BEDTIME 90 days Do you need a note to return to daycare/school/sports/work: No HPI EP-lt hip pain HPI Details History of Present Illness The patient is a 35 year old female presenting with left pelvic and hip pain. Pelvic and abdominal pain: - The patient reports pain in the left p elvic area, extending to the hip, which has been present for a while. - The pain started a couple of months ag o, after her last visit on December 16. - She denies any history of falls. - The pain is described as worsening for about two weeks before her menstrual period. - An X-ray of the sacroiliac joint was p erformed today and was reportedly normal. - An ultrasound is scheduled for next mo nt to evaluate. Anemia: - The patient's hemoglobin has been tren ding down, with recent labs showing a level of 10.5 g/dL. - Previous hemoglobin levels were 11.5 g /dL in February of last year, 11.0 g/dL in June of this year, and 10.8 g/dL in August of this year. Hemorrhoids: - The patient reports swelling in the an al area when going to the bathroom and experiences intermittent anal pain. - She notes the hemorrhoids become engor ged with blood and painful when she pushes during a bowel movement. Constipation: - The patient reports sometimes going up to five days without a bowel movement. Medical History: - History of stomach pain - History of muscle strain in the back Social History: - Employment: The patient works on a [employer] and has a job that involves both sitting and standing. Diagnostic Results: - Labs: Hemoglobin is 10.5 g/dL. - Labs: Metabolic profile, electrolytes, kidney functions, and iron levels are normal. - Labs: LDL cholesterol is in the 130s. - Imaging: An X-ray of the sacroiliac martina int was performed and is fine. Problem List - Pelvic and abdominal pain - Anemia - Hemorrhoids - Constipation Plan - For left-sided pelvic/abdominal pain, the patient will be prescribed a 5 days course of two antibiotics to treat potential inflammation of the colon (colitis) while awaiting her scheduled pelvic ultrasound. - The patient has been advised to take t he antibiotics with food and eat yogurt daily to mitigate potential gastrointestinal side effects such as cramping and nausea. - A urine test will be ordered to rule o ut a bladder issue, as the bladder is also located in the area of pain. - For hemorrhoids and constipation, the patient was advised to start taking an oeao-iat-pweiytr stool softener and laxative combination, Senokot-S, one to two tablets every night to ensure regular bowel movements and avoid straining. - The patient was informed that without proper management of her constipation and hemorrhoids, surgery might be required in the future. - The patient will proceed with the sche duled pelvic ultrasound next month to further evaluate the pelvic pain, with a high suspicion for an ovarian etiology. - Follow-up is advised in one week via p mary jo call to assess her condition. Review of Systems - General: No fever no chills - Neurological: No headaches no dizziness - Ear nose throat: No sore throat no hearing difficulty no ear pain - Cardiovascular: No syncope, no chest pain, no palpitations - Gastrointestinal: No nausea vomiting or diarrhea - Endocrine: No polyuria polydipsia no heat intolerance - Genitourinary: No dysuria , no blood in urine Physical Exam General: No acute distress HEENT: No acute findings Neck: Supple Respiratory system: Able to talk in full sentences, no audible wheeze Cardiovascular: S1-S2 regular in rate and rhythm Gastrointestinal: Pain left side LQ and slightly close to pelvic area with deep pressure, BS + Extremities: No new findings FORGE OPERATOR: Alert awake oriented x3 motor intact Skin: Normal turgor [facility] Medical History Encounter for screening colonoscopy Trigeminal neuralgia of right side of face Thrombocytosis GERD (gastroesophageal reflux disease) Anemia Migraine without aura Vitamin D deficiency B12 deficiency Surgical History No pertinent past surgical history Family History Father CVD (cardiovascular disease) Mother No problems noted. Maternal Grandfather Diabetes mellitus Maternal Grandmother Diabetes mellitus Paternal Grandfather Diabetes mellitus Paternal Grandmother Diabetes mellitus Other No family history of cancer Social History Household Members: Spouse and Children Housing: House Are you a primary intensive care anaesthetist to a significant other at home: No Do you presently have visiting nurse or other home services: No Alcohol intake: never Patient Tobacco Use Status: Never used Tobacco e-Cigarette/Vaping Use: Never Used service: No Current occupational status: employed Cognitive needs: No Hearing needs: No Vision needs: No Female Reproductive History Menstrual Age of Menarche: 9 Physical Exam Vital Signs: Last Vital Signs Pulse 81 03/31/25 10:10 BP 110/70 03/31/25 10:10 Pulse Ox 100 03/31/25 10:10 Oxygen Delivery Method Room Air 03/31/25 10:10 BMI result Body Mass Index 26.1 Assessment & Plan Assessment & Plan (1) Pelvic pain in female: Code(s): R10.20 - Pelvic and perineal pain unspecified side (2) LLQ abdominal pain: Code(s): R10.32 - Left lower quadrant pain (3) Microcytic hypochromic anemia: Comment: Improved with the iron supplement Code(s): D50.9 - Iron deficiency anemia, unspecified (4) External hemorrhoid: Code(s): K64.4 - Residual hemorrhoidal skin tags (5) Constipation by delayed colonic transit: Code(s): K59.01 - Slow transit constipation Plan Problem List - Pelvic and abdominal pain - Anemia - Hemorrhoids - Constipation Plan - For left-sided pelvic/abdominal pain, the patient will be prescribed a 5 days course of two antibiotics to treat potential inflammation of the colon (colitis) while awaiting her scheduled pelvic ultrasound. - The patient has been advised to take the antibiotics with food and eat yogurt daily to mitigate potential gastrointestinal side effects such as cramping and nausea. - A urine test will be ordered to rule out a bladder issue, as the bladder is also located in the area of pain. - For hemorrhoids and constipation, the patient was advised to start taking an gulp-rgi-gaofdwy stool softener and laxative combination, Senokot-S, one to two tablets every night to ensure regular bowel movements and avoid straining. - The patient was informed that without proper management of her constipation and hemorrhoids, surgery might be required in the future. - The patient will proceed with the scheduled pelvic ultrasound next month to further evaluate the pelvic pain, with a high suspicion for an ovarian etiology. - Follow-up is advised in one week via phone call to assess her condition. Medications: New sennosides-docusate sodium 8.6-50 mg (Senokot-S) 1 tab-cap PO BEDTIME 90 tabs 0RF constipation 90 days K59.03 - Drug induced constipation, T40.2X5A - Adverse effect of other opioids, initial encounter metronidazole 500 mg PO BID 10 tabs 0RF 5 days levofloxacin 500 mg PO DAILY 5 tabs 0RF 5 days Coding Level of Care Code Est Pt Level 4 (05228) Diagnoses Pelvic pain in female R10.20 LLQ abdominal pain R10.32 Microcytic hypochromic anemia D50.9 External hemorrhoid K64.4 Constipation by delayed colonic transit K59.01
== END 2025-03-31 10:32 | disposition home or self-care (01) ==
PROVIDERS: PCP Internal Medicine; Visit Provider Internal Medicine
DX: R10.20 Pelvic and perineal pain unspecified side (principal); R10.32 Left lower quadrant pain; D50.9 Iron deficiency anemia, unspecified; K64.4 Residual hemorrhoidal skin tags; K59.01 Slow transit constipation